=== PATIENT | male | born 1970 | race African-American/Black ===

== ENCOUNTER 2019-10-26 06:45 | Inpatient (IN) | payer OTHER ==
[2019-10-26] MEDS ORDERED: ALBUTEROL SO4 2.5/IPRATROPIUM 0.5 INH SOL 3 ML VIAL.NEB. NEB ONE ×2 (06:52→07:46)
--- NOTE | 2019-10-26 07:38 | PDOC ---
History of Present Illness - General Chief Complaint: Asthma Stated Complaint: DIFFICULTY BREATHING,ASTHMA Time Seen by Provider: 10/26/19 07:10 - History of Present Illness Initial Comments: 10/26/19 07:33 49 yo male with pmh of asthma and htn presents to ED for shortness of breath and wheezing that started this morning. Pt explains that ever since last month he has been having worsening shortness of breath which he thought was his asthma. He went to urgent care last month where he was given albuterol inhaler and 6 day course of steroids. After that pt felt better but slowly been getting worse. He explains this entire week he has been woken up from sleep and using his inhaler. Pt today explains his inhaler usually helps with symptoms but today it did not and that is why he is here today. On EMS he believes he received 2 duoneb treatments and one steroid treatment, but pt still feels short of breath. Pt also explains he has been using two pillows at home and have increased shortness of breath when walking up stairs or exerting himself which is not his baseline. Pt has never been on bipap or intubated in the past for his asthma nor has he ever been admitted to the hospital or the ICU for asthma. He also denies any fevers, chills, coughing, chest pain, abdominal pain, calf tenderness, lower extremity swelling. PMH: HTN, Asthma Meds: albuterol, omesartan PSH: Hernia repair Allergies: none Social: 1/2 pack day smoker; denies alcohol denies drugs Past History - Medical History Allergies/Adverse Reactions: Allergies Allergy/AdvReac Type Severity Reaction Status Date / Time No Known Allergies Allergy Verified 10/26/19 07:06 Home Medications: Ambulatory Orders Albuterol Sulfate Inhaler - [Ventolin Hfa Inhaler -] 2 inh PO Q6H 10/26/19 Olmesartan/Hydrochlorothiazide [Olmesartan-Hctz 40-25 mg Tab] 1 each PO DAILY 10/26/19 Anemia: Yes Cardiac Disorders: Yes COPD: No HTN: Yes - Immunization History Immunization Up to Date: Yes - Psycho-Social/Smoking History Smoking History: Current every day smoker Have you smoked in the past 12 months: Yes Number of Cigarettes Smoked Daily: 10 Information on smoking cessation initiated: Yes - Substance Abuse Hx (Audit-C & DAST Scrn) How often the patient has a drink containing alcohol: 2-3 times / week Number of drinks the patient has on a typical day: 1 or 2 How often the patient has six or more drinks on one occasion: Never Score: In Men: 4 or > Positive; In Women: 3 or > Positive: 3 Screen Result (Pos requires Nsg. Audit-10AR): Negative In the last yr the pt used illegal drug/Rx for NonMed reason: No Score: Yes response is considered Positive: 0 Screen Result (Positive result requires Nsg. DAST-10): Negative Review of Systems - Review of Systems Comments:: 10/26/19 07:44 GENERAL/CONSTITUTIONAL: No fever or chills. No weakness. HEAD, EYES, EARS, NOSE AND THROAT: No change in vision. No ear pain or disc harge. No sore throat. CARDIOVASCULAR: No chest pain. Shortness of breath RESPIRATORY: Wheezing. No hemoptysis. GASTROINTESTINAL: No nausea, vomiting, diarrhea or constipation. GENITOURINARY: No dysuria, frequency, or change in urination. MUSCULOSKELETAL: No joint or muscle swelling or pain. No neck or back pain. SKIN: No rash NEUROLOGIC: No headache, vertigo, loss of consciousness, or change in strength/sensation. HEMATOLOGIC/LYMPHATIC: No anemia, easy bleeding, or history of blood clots. ALLERGIC/IMMUNOLOGIC: No hives or skin allergy. *Physical Exam - Vital Signs Last Vital Signs Temp Pulse Resp BP Pulse Ox 100.4 F H 124 H 26 H 162/129 H 98 10/26/19 06:54 10/26/19 06:54 10/26/19 06:54 10/26/19 06:54 10/26/19 06:54 - Physical Exam 10/26/19 07:53 GENERAL: Awake, alert, and fully oriented, in distress hunching over HEAD: No signs of trauma, normocephalic, atraumatic EYES: EOMI, sclera anicteric, conjunctiva clear ENT: Auricles normal inspection, hearing grossly normal, nares patent, oropharynx clear without exudates. Moist mucosa NECK: Normal ROM, supple, no JVD, or masses LUNGS: In distress bilateral inspiritory rhonchi and expiratory wheezes, decreased breath sounds at bases. HEART:Tachycardic and regular rhythm, normal S1 and S2, no murmurs, rubs or gallops, peripheral pulses normal and equal bilaterally. ABDOMEN: Soft, nontender, normoactive bowel sounds. No guarding, no rebound. No masses EXTREMITIES : No clubbing or cyanosis. 1+ peripheral edema on bilateral lower ext. NEUROLOGICAL: Cranial nerves II through XII grossly intact. Normal speech, no focal sensorimotor deficits SKIN: Warm, Dry, normal turgor, no rashes or lesions noted Heart Score/ECG Review - ECG Impressions Comment:: 10/26/19 14:38 Sinus tachycardic at 116 bpm LVH Normal axis Normal GA and QRS interval prolonged QT interval ED Treatment Course - LABORATORY CBC & Chemistry Diagram: 10/26/19 07:50 10/26/19 07:50 - RADIOLOGY Radiology Studies Ordered: Category Date Time Status CHEST X-RAY PORTABLE* [RAD] Stat Radiology 10/26/19 07:27 Ordered Medical Decision Making - Medical Decision Making 10/26/19 08:15 49 yo male with pmh htn and asthma presents today for SOB that has been going on for one month but worsened this morning. Pt is febrile and has bilateral rhonchi on exam. Will get full septic workup. Will also get ekg and trop. Will also treat for asthma with albuterol and magnesium. Will see labs and reassess. 10/26/19 08:19 xray showing congestive changes and right sided infiltrate will treat for possible hypertensive CHF with 1 inch nitropaste and possible PNA with Ceftriaxone and Azithromycin. 10/26/19 10:00 Pt had worsening SOB so put pt on bipap. CMP came back with normal K so gave 20 lasix. Pt now stable after bipap and admit. Pt was case was discussed with resident about pts HPI, ED course, and current plan of management. Admitted to Dr. Myers Discharge - Discharge Information Problems reviewed: Yes Clinical Impression/Diagnosis: Acute respiratory failure with hypoxia Pneumonia Qualifiers: Pneumonia type: due to unspecified organism Laterality: right Lung location: lower lobe of lung Qualified Code(s): J18.9 - Pneumonia, unspecified organism Acute CHF (congestive heart failure) Qualifiers: Heart failure type: unspecified Qualified Code(s): I50.9 - Heart failure, unspecified Condition: Fair - Follow up/Referral - Patient Discharge Instructions - Post Discharge Activity
[2019-10-26] MEDS ORDERED: MAGNESIUM SULFATE IN WATER 2 GM/50 ML IVPB IVPB ONE (07:46)
[2019-10-26] MEDS ORDERED: ALBUTEROL SO4 HFA INHALER IH ONE ×3 (07:49→07:55)
[2019-10-26] MEDS ORDERED: CEFTRIAXONE 1,000 MG in DEXTROSE 5%-WATER - 50 ML IVPB ONE (08:01)
[2019-10-26] MEDS ORDERED: AZITHROMYCIN IVPB 500 MG in DEXTROSE 5%-WATER - 250 ML IVPB ONE (08:02)
[2019-10-26] MEDS ORDERED: NITROGLYCERIN 2% OINTMENT - 1GM PACKET TD ONE ×2 (08:03→08:13)
[2019-10-26] MEDS ORDERED: CEFTRIAXONE 1 GM/50 ML BAG ONE (08:13)
[2019-10-26] MEDS ORDERED: AZITHROMYCIN IVPB 500 MG/250 ML BAG IVPB ONE (08:13)
[2019-10-26 08:20] LABS: BASO % 0.5 % (0-2.0); EOS % 1.2 % (0-4.5); HEMATOCRIT 50.3 % (35.4-49); HEMOGLOBIN 16.7 GM/dL (11.7-16.9); MCH 31.4 pg (25.7-33.7); MCHC 33.2 g/dl (32.0-35.9); MEAN CELL VOLUME 94.6 fl (80-96); MEAN PLT VOLUME 9.4 fl (7.5-11.1); MONO % 4.6 % (3.8-10.2); NEUT % 72.7 % (42.8-82.8); PLATELET COUNT 186 K/MM3 (134-434); RBC 5.31 M/mm3 (4.00-5.60); RDW 15.2 % (11.9-15.9); WHITE BLOOD COUNT 5.8 K/mm3 (4.0-10.0)
--- NOTE | 2019-10-26 08:32 | PDOC ---
Attending Attestation - Resident Resident Name: Nilesh Serna - ED Attending Attestation I have performed the following: I have examined & evaluated the patient, The case was reviewed & discussed with the resident, I agree w/resident's findings & plan - HPI HPI: 10/26/19 08:27 49-year-old male with history of hypertension but noncompliant with medications, history of asthma and smoking presents with 1 month of progressive shortness of breath. Patient reports predominantly nighttime dyspnea that awakens him from sleep, no associated chest pain. He was seen at an urgent care about 1 month ago and prescribed albuterol for presumed asthma exacerbation, has been using it primarily at night with these events but without improvement. Last night, had a more significant episode so he presents for evaluation. Patient also reports 1 month of progressive dyspnea on exertion, notes previously being able to walk 2 flights of stairs in his home, but now has to stop at the top because of shortness of breath. Denies any chest pain, denies any wheezing, some cough with clear sputum, no leg swelling. No recent travel, no drug use, active smoker. Patient did report having a cardiac catheterization a few years ago, reportedly normal. - Physicial Exam PE: 10/26/19 08:29 Noted to be febrile here at 100.4, hypertensive, tachycardic, tachypneic Satting well on room air oxygen, speaking full sentences but tachypneic No JVD Heart is regular tachycardia Bibasilar crackles with decreased breath sounds at both bases, right worse than left. No wheezing noted on my examination. Abdomen benign No edema or calf tenderness - Critical Care Time Total Critical Care Time: 30 Critical Care Statement: The care of this patient involved high complexity decision making to prevent further life threatening deterioration of the patient's condition and/or to evaluate & treat vital organ system(s) failure or risk of failure. - Medical Decision Making 10/26/19 08:30 49-year-old male presents with 1 month of progressive shortness of breath, initially orthopnea/PND but now with exertional dyspnea and progressive sh ortness of breath. While asthma is on the differential, presentation could be more consistent with new onset CHF, likely diastolic from noncompliance with hypertension management. Patient noted to be febrile here, possible superimposed infectious process acutely exacerbating symptoms. Sepsis protocol initiated Supplemental oxygen, EKG, chest x-ray Nebulizers, will likely need diuretics Antibiotics as indicated based on work-up Will require admission and telemetry monitoring 10/26/19 09:54 trop negative, bnp elevated cxr with congestion and possible RLL infiltrate. no leukocytosis. covered for CAP. received diuresis. admitted to tele Heart Score/ECG Review #1 ECG reviewed & interpreted by me at: 06:57 General ECG Interpretation: Sinus Rhythm (tachy at 116), Normal Intervals (qtc 497), No acute ischemic changes Compared to previous ECG there are: Previous ECG unavail Discharge - Discharge Information Problems reviewed: Yes Clinical Impression/Diagnosis: Acute respiratory failure with hypoxia Pneumonia Qualifiers: Pneumonia type: due to unspecified organism Laterality: right Lung location: lower lobe of lung Qualified Code(s): J18.9 - Pneumonia, unspecified organism Acute CHF (congestive heart failure) Qualifiers: Heart failure type: unspecified Qualified Code(s): I50.9 - Heart failure, unspecified Condition: Fair - Follow up/Referral - Patient Discharge Instructions - Post Discharge Activity
[2019-10-26] MEDS ORDERED: ACETAMINOPHEN 1000 MG/100 ML VIAL (NON FORMULARY) IVPB ONE (08:34)
[2019-10-26 08:39] LABS: INR 0.96 (0.83-1.09); PROTHROMBIN TIME (PATIENT) 11.3 SEC (9.7-13.0)
[2019-10-26 08:41] LABS: ACTIVATED PTT 30.1 SECONDS (25.2-36.5)
[2019-10-26 08:42] LABS: VENOUS BASE EXCESS -4.1 mmol/L (-2-2); VENOUS O2 SATURATION 61.2 % (70-80); VENOUS PCO2 45.8 mmHg (38-52); VENOUS PH 7.307 (7.310-7.410)
[2019-10-26] MEDS ORDERED: ACETAMINOPHEN INJECTION 100 ML IVPB ONE (08:50)
[2019-10-26 09:32] LABS: ALBUMIN 3.4 g/dl (3.4-5.0); BILIRUBIN,TOTAL 0.8 mg/dL (0.2-1); BLOOD UREA NITROGEN 15.8 mg/dL (7-18); CALCIUM 8.9 mg/dL (8.5-10.1); CREATININE 1.2 mg/dL (0.55-1.3); POTASSIUM 3.9 mmol/L (3.5-5.1)
[2019-10-26] MEDS ORDERED: FUROSEMIDE 40 MG/4 ML INJECTABLE VIAL IVPUSH ONE (09:35)
--- NOTE | 2019-10-26 10:19 | PN ---
Teaching Attending Note Name of Resident: Jem Parish ATTENDING PHYSICIAN STATEMENT I saw and evaluated the patient. I reviewed the resident's note and discussed the case with the resident. I agree with the resident's findings and plan as documented. SUBJECTIVE: 49 year old AA male with known history of asthma, hypertension, history of hernia repair (remote), current smoker who presents to the ED complaining of shortness of breath. Patient has been having these episodes over months. He had already gone to the Urgent Care the month prior for similar symptoms and treated with inhalers and steroids. He reports episodes have been more frequent over the last week, having to wake up from sleep to use inhalers most of the time. Family history: both parents are currently alive, with COPD. 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 Shortness of breath secondary to CHF exacerbation - serial troponins - cardiac monitoring - aspirin - lipid profile - echocardiogram - Ddx: includes COPD/asthma exacerbation, CAP superimposed - covid 19 screen pending - blood cultures - diuretics - weigh daily - check electrolytes - counseled regarding smoking cessation - antibiotics initiated and continue -BIPAP support ongoing; to wean as able 2. DVT prophylaxis - Lovenox
[2019-10-26] MEDS ORDERED: FUROSEMIDE 40 MG/4 ML INJECTABLE VIAL ONE (10:40)
--- NOTE | 2019-10-26 10:43 | EKG ---
Test Reason : Blood Pressure : / mmHG Vent. Rate : 116 BPM Atrial Rate : 116 BPM P-R Int : 142 ms QRS Dur : 092 ms QT Int : 358 ms P-R-T Axes : 060 001 079 degrees QTc Int : 497 ms SINUS TACHYCARDIA MODERATE VOLTAGE CRITERIA FOR LVH, MAY BE NORMAL VARIANT NONSPECIFIC T WAVE ABNORMALITY ABNORMAL ECG WHEN COMPARED WITH ECG OF 04-JAN-2009 20:29, T WAVE INVERSION NO LONGER EVIDENT IN INFERIOR LEADS NONSPECIFIC T WAVE ABNORMALITY NO LONGER EVIDENT IN ANTERIOR LEADS NONSPECIFIC T WAVE ABNORMALITY, WORSE IN LATERAL LEADS Confirmed by León Escalona ([id number]) on 10/26/2019 10:42:57 AM Referred By: Confirmed By:León Escalona
[2019-10-26] MEDS ORDERED: ALBUTEROL SO4 2.5/IPRATROPIUM 0.5 INH SOL 3 ML VIAL.NEB. NEB PRN (11:43)
--- NOTE | 2019-10-26 11:54 | HP ---
CHIEF COMPLAINT: SOB since 2AM PCP: Dr. Negro HISTORY OF PRESENT ILLNESS: This is a 49 year old male with PMH of asthma and HTN. He presented to the ER with SOB that began at 2AM while he was asleep. He used his albuterol IH with no resolution of symptoms, after which he called EMS and was then brought to the ER. He states that he has had asthma since he was child, has never been hospitalized or intubated in the past. Albuterol IH has always helped with his asthma, up until 1 month ago when he began experiencing increased frequency of asthma episodes. At that time (1 month ago), he went to an urgent care clinic, where he was started on a 6 day PO steroid course, which improved his symptoms for about 1 week, after which his symptoms reappeared. Frequency of the asthma attacks over the past month is almost every night, and he endorses nocturnal awakening as well as activity limitation due to asthma. He states that he is now only able to walk 2 flights of stairs before becoming SOB, ambulates without assistance, endorses orthopnea and PND, and uses 2 pillows at night. He denies fevers, chills, cough, chest pain, nausea, vomiting, diarrhea, dysuria, or LE swelling. His last hospitalization was 3 years ago for PNA at [facility]. Had a L sided hernia removed as a child. Family Hx is positive for COPD in both parents, AZ in mother at the age of 67 (currently alive), and a brother with stroke/[place] at the age of 48 (currently alive). 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 No recent sick contacts. He smokes 1/2 ppd for the past 30 years, drinks liquor daily (pt. would not specify and became agitated when questioned about alcohol use), and denies drug use. In the ER, he was foud to be hypoxic and was started on BiPAP (IPAP 10, EPAP 4, Rate 4, FiO2 50%). CXR showed congestive changes as well as an infiltrate, with BNP of 2.2k, and he was given Lasix 20mg for concern for CHF exacerbation and Ceftriaxone/Azithro for PNA. ER course was notable for: (1) CXR: new congestive changes, possible infiltrate (2)BNP 2.2k, 20mg Lasix (3) Ceftriaxone/Azithromycin Recent Travel: denies PAST MEDICAL HISTORY: See HPI PAST SURGICAL HISTORY: See HPI Social History: See HPI Allergies No Known Allergies Allergy (Verified 10/26/19 07:06) HOME MEDICATIONS: Home Medications Medication Instructions Recorded Albuterol Sulfate Inhaler - 2 inh PO Q6H 10/26/19 [Ventolin Hfa Inhaler -] Olmesartan/Hydrochlorothiazide 1 each PO DAILY 10/26/19 [Olmesartan-Hctz 40-25 mg Tab] REVIEW OF SYSTEMS CONSTITUTIONAL: Absent: fever, chills, diaphoresis, generalized weakness, malaise, loss of appetite, weight change HEENT: Absent: rhinorrhea, nasal congestion, throat pain, throat swelling, difficulty swallowing, mouth swelling, ear pain, eye pain, visual changes CARDIOVASCULAR: Absent: chest pain, syncope, palpitations, irregular heart rate, lightheadedness, peripheral edema RESPIRATORY: shortness of breath, dyspnea with exertion, orthopnea Absent: cough, shortness of breath, dyspnea with exertion, orthopnea, wheezing, stridor, hemoptysis GASTROINTESTINAL: Absent: abdominal pain, abdominal distension, nausea, vomiting, diarrhea, constipation, melena, hematochezia GENITOURINARY: Absent: dysuria, frequency, urgency, hesitancy, hematuria, flank pain, genital pain MUSCULOSKELETAL: Absent: myalgia, arthralgia, joint swelling, back pain, neck pain SKIN: Absent: rash, itching, pallor HEMATOLOGIC/IMMUNOLOGIC: Absent: easy bleeding, easy bruising, lymphadenopathy, frequent infections ENDOCRINE: Absent: unexplained weight gain, unexplained weight loss, heat intolerance, cold intolerance NEUROLOGIC: Absent: headache, focal weakness or paresthesias, dizziness, unsteady gait, seizure, mental status changes, bladder or bowel incontinence PSYCHIATRIC: Absent: anxiety, depression, suicidal or homicidal ideation, hallucinations. PHYSICAL EXAMINATION Vital Signs - 24 hr 10/26/19 10/26/19 10/26/19 06:54 09:30 10:43 Temperature 100.4 F H Pulse Rate 124 H Pulse Rate [ 113 H Apical] Respiratory 26 H 20 Rate Blood Pressure 162/129 H Blood Pressure 162/112 H [Right Arm] O2 Sat by Pulse 98 99 97 Oximetry (%) GENERAL: Awake, alert, and fully oriented, in no acute distress. HEAD: Normal with no signs of trauma. EYES: Pupils equal, round and reactive to light, extraocular movements intact, sclera anicteric, conjunctiva clear. No lid lag. EARS, NOSE, THROAT: Ears normal, nares patent, oropharynx clear without exudates. Moist mucous membranes. NECK: Normal range of motion, supple without lymphadenopathy, JVD, or masses. LUNGS: Decreased BS B/L, fine crackles B/L at bases HEART: Regular rate and rhythm, normal S1 and S2 without murmur, rub or gallop. ABDOMEN: Soft, nontender, not distended, normoactive bowel sounds, no guarding, no rebound, no masses. No hepatomegaly or splenomegaly. MUSCULOSKELETAL: Normal range of motion at all joints. No bony deformities or tenderness. No CVA tenderness. UPPER EXTREMITIES: 2+ pulses, warm, well-perfused. No cyanosis. No clubbing. No peripheral edema. LOWER EXTREMITIES: 2+ pulses, warm, well-perfused. No calf tenderness. No peripheral edema. NEUROLOGICAL: Cranial nerves II-XII intact. Normal speech. Normal gait. PSYCHIATRIC: Cooperative. Good eye contact. Appropriate mood and affect. SKIN: Warm, dry, normal turgor, no rashes or lesions noted, normal capillary refill. Laboratory Results - last 24 hr 10/26/19 10/26/19 10/26/19 07:50 07:50 07:50 WBC 5.8 RBC 5.31 Hgb 16.7 Hct 50.3 H MCV 94.6 MCH 31.4 MCHC 33.2 RDW 15.2 Plt Count 186 MPV 9.4 Absolute Neuts (auto) 4.2 Neutrophils % 72.7 Lymphocytes % 21.0 Monocytes % 4.6 Eosinophils % 1.2 Basophils % 0.5 Nucleated RBC % 0 PT with INR INR PTT (Actin FS) VBG pH POC VBG pCO2 POC VBG pO2 VBG HCO3 VBG O2 Sat ([facility]) VBG Base Excess Sodium 141 Potassium 3.9 Chloride 110 H Carbon Dioxide 22 Anion Gap 9 BUN 15.8 Creatinine 1.2 Est GFR (CKD-EPI)AfAm 82.96 Est GFR (CKD-EPI)NonAf 71.58 Random Glucose 110 H Lactic Acid 2.0 Calcium 8.9 Magnesium 2.0 Total Bilirubin 0.8 AST 47 H ALT 45 Alkaline Phosphatase 57 Creatine Kinase 268 Creatine Kinase Index 0.6 CK-MB (CK-2) 1.8 Troponin I 0.03 B-Natriuretic Peptide Total Protein 7.0 Albumin 3.4 10/26/19 10/26/19 10/26/19 07:50 08:00 08:00 WBC RBC Hgb Hct MCV MCH MCHC RDW Plt Count MPV Absolute Neuts (auto) Neutrophils % Lymphocytes % Monocytes % Eosinophils % Basophils % Nucleated RBC % PT with INR 11.30 INR 0.96 PTT (Actin FS) 30.1 VBG pH 7.307 L POC VBG pCO2 45.8 POC VBG pO2 34.9 VBG HCO3 22.4 L VBG O2 Sat ([facility]) 61.2 L VBG Base Excess -4.1 L Sodium Potassium Chloride Carbon Dioxide Anion Gap BUN Creatinine Est GFR (CKD-EPI)AfAm Est GFR (CKD-EPI)NonAf Random Glucose Lactic Acid Calcium Magnesium Total Bilirubin AST ALT Alkaline Phosphatase Creatine Kinase Creatine Kinase Index CK-MB (CK-2) Troponin I B-Natriuretic Peptide 2257.6 H Total Protein Albumin ASSESSMENT/PLAN: 49 year old male with PMH of asthma and HTN, presented to the ER with acutely worsening SOB that began at 2AM while he was asleep, with a history of 1 month of worsening asthma symptoms uncontrolled by Albuterol IH. Found to have R infiltrate on CXR as well as BNP of 2.2k, admitted for CHF exacerbation #SOB - No definitive etiology, may be a mixed picture of asthma excaberation, PNA, and CHF exacerbation - Asthma excaberation: - Asthma may have progressed, fits criteria for severe persistent (nocturnal awakening as well as activity limitation due to asthma) - Started on Prednisone 40mg PO as well as Duonebs - Would recommend outpatient Pulm F/U for PFTs as well as adding Symbicort IH upon discharge for management of severe persistent asthma - PNA: - Temp 100.4 in ER, Tachy 103, R lobe possible infiltrate on CXR - Blood/Urine/Sputum cx as well as Urine for Legionella antigen ordered - COVID swab sent - Started on Ceftriaxone, Azithromycin for CAP, no indication for Pseudomonas or MRSA coverage - CHF exacerbation: - CXR shows signs of possible congestion and BNP is 2.2k however there is no convincing clinical evidence - TSH to r/o hyperthyroidism, which may cause elevated BNP - Elevated BNP may also be caused by valvular disease, LVH, will hold off on Echo for now pending cardiac consult - Troponin 0.02, repeat ordered - Stable for Med Surg, Cardiac consult, daily weights, strict I/Os - Started on Lasix 20mg IV daily #Hx of HTN - Attempted to verify meds with pt's pharmacy, no response - Pt's Olmesartan/HCTZ continued for now, will need to be verified #FEN - Na controlled diet #Prophylaxis - Lovenox #Dispo - Will monitor in Med Surg for now # Visit type - Emergency Visit Emergency Visit: No - New Patient This patient is new to me today: No - Critical Care Critical Care patient: No ATTENDING PHYSICIAN STATEMENT I saw and evaluated the patient. I reviewed the resident's note and discussed the case with the resident. I agree with the resident's findings and plan as documented. SUBJECTIVE: OBJECTIVE: ASSESSMENT AND PLAN:
--- NOTE | 2019-10-26 12:29 | CONSULT ---
Consult Consult Specialty:: Nephrology Reason for Consultation:: fluid overload - History of Present Illness Chief Complaint: shortness of breath History of Present Illness: Pt is a 49 year old male with pmhx of htn and asthma who presents with shortness of breath. He says that he has had shortness of breath for about a month. He is unable to lay flat without shortness of breath. He thought it was from his asthma. He went to urgent care and did get a course of prednisone however it did not help much. He does have edema of his legs. He has shortness of breath with ambulation. I was called to evaluate his volume status. - History Source History Provided By: Patient, Medical Record - Past Medical History Cardio/Vascular: Yes: HTN - Smoking History Smoking history: Current every day smoker Have you smoked in the past 12 months: Yes Aproximately how many cigarettes per day: 10 Home Medications - Allergies Allergies/Adverse Reactions: Allergies Allergy/AdvReac Type Severity Reaction Status Date / Time No Known Allergies Allergy Verified 10/26/19 07:06 - Home Medications Home Medications: Ambulatory Orders Albuterol Sulfate Inhaler - [Ventolin Hfa Inhaler -] 2 inh PO Q6H 10/26/19 Olmesartan/Hydrochlorothiazide [Olmesartan-Hctz 40-25 mg Tab] 1 each PO DAILY 10/26/19 Family Medical History Family History: Denies Review of Systems - Review of Systems Constitutional: reports: Weakness Eyes: reports: No Symptoms HENT: reports: No Symptoms Neck: reports: No Symptoms Cardiovascular: reports: Edema, Shortness of Breath Respiratory: reports: SOB, SOB on Exertion Gastrointestinal: reports: No Symptoms Genitourinary: reports: No Symptoms Musculoskeletal: reports: No Symptoms Integumentary: reports: No Symptoms Neurological: reports: No Symptoms Endocrine: reports: No Symptoms Hematology/Lymphatic: reports: No Symptoms Psychiatric: reports: No Symptoms Physical Exam Vital Signs: Vital Signs Temperature 100.4 F H 10/26/19 06:54 Pulse Rate 113 H 10/26/19 10:43 Respiratory Rate 10/26/19 10:43 Blood Pressure 162/112 H 10/26/19 10:43 O2 Sat by Pulse Oximetry (%) 97 10/26/19 10:43 Constitutional: Yes: Calm Eyes: Yes: Conjunctiva Clear HENT: Yes: Atraumatic Neck: Yes: Supple Cardiovascular: Yes: S1, S2 Respiratory: Yes: On Nasal O2, Rhonchi Gastrointestinal: Yes: Soft Renal/: Yes: WNL Edema: Yes Edema: LLE: 1+, RLE: 1+ Neurological: Yes: Oriented Psychiatric: Yes: Oriented Labs: CBC, BMP 10/26/19 07:50 10/26/19 07:50 Imaging - Results Chest X-ray: Report Reviewed Problem List - Problems (1) Acute CHF (congestive heart failure) Code(s): I50.9 - HEART FAILURE, UNSPECIFIED Qualifiers: Heart failure type: unspecified Qualified Code(s): I50.9 - Heart failure, u nspecified (2) Acute respiratory failure with hypoxia Code(s): J96.01 - ACUTE RESPIRATORY FAILURE WITH HYPOXIA Assessment/Plan Current Medications Generic Name Dose Route Start Last Admin Trade Name Freq PRN Reason Stop Dose Admin Albuterol/Ipratropium 1 amp 10/26/19 11:43 Duoneb - NEB Q4H PRN SHORTNESS OF BREATH Enoxaparin Sodium 40 mg 10/27/19 10:00 Lovenox - SQ DAILY SUSAN Furosemide 20 mg 10/27/19 10:00 Lasix Injection - IVPUSH DAILY [facility] Hydrochlorothiazide 25 mg 10/27/19 10:00 Hctz - PO DAILY [facility] Ceftriaxone Sodium 1 gm/ 50 mls @ 200 mls/hr 10/27/19 10:00 Dextrose IVPB DAILY [facility] Protocol Azithromycin 500 mg in 250 mls @ 250 mls/hr 10/27/19 10:00 Zithromax 500mg Ivpb (Pre-Docked) IVPB DAILY [facility] Prednisone 40 mg 10/27/19 10:00 Deltasone - PO DAILY SUSAN Valsartan 320 mg 10/27/19 10:00 Diovan - PO DAILY SUSAN Laboratory Tests 10/26/19 10/26/19 10/26/19 07:50 07:50 07:50 WBC 5.8 Hgb 16.7 Sodium 141 Potassium 3.9 Chloride 110 H BUN 15.8 Creatinine 1.2 Est GFR (CKD-EPI)AfAm 82.96 Random Glucose 110 H B-Natriuretic Peptide 2257.6 H COVID-19 ([facility]) 10/26/19 09:07 WBC Hgb Sodium Potassium Chloride BUN Creatinine Est GFR (CKD-EPI)AfAm Random Glucose B-Natriuretic Peptide COVID-19 ([facility]) Pending Impression 1. chf 2. pna 3. htn - non compliant with meds 4. hypoxia 5. fever Plan - start lasix - monitor lytes - check echo - bnp elevated - follow covid - discussed with ER - monitor pulse ox - monitor output - check ua - check prt to special education supervisor ratio
[2019-10-26 13:15] LABS: EPI CELLS 1 /uL (0-25.1); HYALINE CASTS 0 /uL (0-3.1); URINE APPEARANCE CLEAR; URINE BACTERIA 1 /uL (0-1359); URINE BILIRUBIN NEGATIVE (NEGATIVE); URINE COLOR YELLOW; URINE GLUCOSE (UA) NEGATIVE (NEGATIVE); URINE KETONE NEGATIVE (NEGATIVE); URINE LEUK ESTERASE NEGATIVE (NEGATIVE); URINE NITRITE NEGATIVE (NEGATIVE); URINE PROTEIN 1+ (NEGATIVE); URINE RBC 2 /uL (0-23.9); URINE UROBILINOGEN 0.2 mg/dL (0.2-1.0); URINE WBC 2 /uL (0-25.8)
[2019-10-26] MEDS ORDERED: HYDROCHLOROTHIAZIDE 25 MG TABLET (FP) PO ONE (18:19)
[2019-10-26] MEDS ORDERED: VALSARTAN 160 MG TABLET (UD) PO ONE (18:19)
--- NOTE | 2019-10-26 18:19 | CON.CARD ---
Consult Consult Specialty:: cardiology Reason for Consultation:: DUFFY - History of Present Illness History of Present Illness: Mr. Chisholm is a 49-year-old black male with history of hypertension, noncompliant with medications, history of bronchial asthma since childhood,and smoking 1 ppd for years, acute/chronic alcoholism, presents with 1 month of progressive shortness of breath. Patient reports predominantly nighttime dyspnea that awakens him from sleep, no associated chest pain. He was seen at an urgent care about 1 month ago and prescribed albuterol for presumed asthma exacerbation, has been using it primarily at night with these events but without improvement. Last night, had a more significant episode so he presents for evaluation. Patient also reports 1 month of progressive dyspnea on exertion, notes previously being able to walk 2 flights of stairs in his home, but now has to stop at the top because of shortness of breath. Denies any chest pain, denies any wheezing, some cough with clear sputum, no leg swelling. No recent travel, no drug use, active smoker. Patient did report having a cardiac catheterization a few years ago, reportedly normal. - History Source History Provided By: Patient, Medical Record Limitations to Obtaining History: No Limitations - Past Medical History Cardio/Vascular: Yes: HTN Pulmonary: Yes: Asthma Heme/Onc: No: Anemia Psych: Yes: Addictions, Anxiety - Alcohol/Substance Use Hx Alcohol Use: Yes - Smoking History Smoking history: Current every day smoker Have you smoked in the past 12 months: Yes Aproximately how many cigarettes per day: 10 Home Medications - Allergies Allergies/Adverse Reactions: Allergies Allergy/AdvReac Type Severity Reaction Status Date / Time No Known Allergies Allergy Verified 10/26/19 07:06 - Home Medications Home Medications: Ambulatory Orders Albuterol Sulfate Inhaler - [Ventolin Hfa Inhaler -] 2 inh PO Q6H 10/26/19 Olmesartan/Hydrochlorothiazide [Olmesartan-Hctz 40-25 mg Tab] 1 each PO DAILY 10/26/19 Family Medical History Family Hx Congestive Heart Failure: Brother (Life vest; ?ICD in his 50s) Family Hx Coronary Artery Disease: Mother (CABG) Family Hx Respiratory Disorders: Mother (COPD (smoker)) Review of Systems - Review of Systems Constitutional: reports: Weakness Eyes: reports: No Symptoms HENT: reports: No Symptoms Neck: reports: No Symptoms Cardiovascular: reports: Shortness of Breath Respiratory: reports: Exercise Intolerance Gastrointestinal: reports: No Symptoms Genitourinary: reports: No Symptoms Musculoskeletal: reports: Muscle Weakness Integumentary: reports: No Symptoms Neurological: reports: No Symptoms Endocrine: reports: No Symptoms Hematology/Lymphatic: reports: No Symptoms Psychiatric: reports: Anxiety, Other - Risk Factors Known Risk Factors: Yes: Age, Gender, Hypertension, Physical Inactivity, Race, Other (CHF) Vital Signs: Vital Signs Temperature 98 F 10/26/19 18:04 Pulse Rate 91 H 10/26/19 18:04 Respiratory Rate 20 10/26/19 18:04 Blood Pressure 159/93 10/26/19 18:04 O2 Sat by Pulse Oximetry (%) 99 10/26/19 18:04 Constitutional: Yes: Anxious Eyes: Yes: WNL HENT: Yes: WNL Neck: Yes: WNL Respiratory: Yes: Diminished, SOB on Exertion Gastrointestinal: Yes: Soft Renal/: No: Anuria Cardiovascular: Yes: Regular Rate and Rhythm Heart Sounds: Yes: S1, S2, S4 Murmur: Yes: Systolic Murmur, Grade 2 Musculoskeletal: Yes: Muscle Weakness Extremities: Yes: Cool Edema: Yes Edema: LLE: Trace, RLE: Trace Peripheral Pulses WNL: Yes Integumentary: Yes: WNL Neurological: Yes: Alert, Oriented Psychiatric: Yes: Alert, Oriented, Other - Other Data Labs, Other Data: CBC, BMP 10/26/19 07:50 10/26/19 07:50 INR, PTT INR 0.96 (0.83-1.09) 10/26/19 08:00 Troponin, BNP 10/26/19 10/26/19 10/26/19 07:50 07:50 14:27 Troponin I 0.03 0.04 B-Natriuretic Peptide 2257.6 H Troponin, BNP 10/26/19 10/26/19 10/26/19 07:50 07:50 14:27 Troponin I 0.03 0.04 B-Natriuretic Peptide 2257.6 H Abnormal Lab Results 10/30/19 10/30/19 06:18 06:18 Neutrophils % 39.6 L Lymphocytes % 47.7 H Anion Gap 6 L BUN 20.8 H Total Protein 6.1 L Albumin 2.9 L Echo: Pending Assessment/Plan Acute/chronic respiratory distress Bronchial asthma Uncontrolled HTN Acute/chronic CHF Multiple CAD risks Noncompliance to medications Mild TNI elevation Plan: Bronchodilators, O2, steroids, antibiotics per padding gluer, ID. Nicotine patch ECHO for LVEF, valve status. EKG: Sinus tachycardia; LVH On valsartan, HCTZ, and furosemide. F/u BUN/Cr, electrolytes, daily weight, Is and Os. F/u Lipid profile, HGBA1c, TSH. Hx cardiac workup ? 3 yrs ago, including stress test, prior to a planned surgery (for rt rotator cuff, which was never done)
[2019-10-26 18:47] VITALS: BMI 26.7
[2019-10-26] MEDS: NICOTINE 21 MG/24 HOURS TOPICAL PATCH TD SCH (20:12)
[2019-10-27 07:10] LABS: BASO % 0.3 % (0-2.0); EOS % 0.2 % (0-4.5); HEMATOCRIT 44.5 % (35.4-49); HEMOGLOBIN 14.6 GM/dL (11.7-16.9); MCH 31.2 pg (25.7-33.7); MCHC 32.7 g/dl (32.0-35.9); MEAN CELL VOLUME 95.4 fl (80-96); MEAN PLT VOLUME 9.5 fl (7.5-11.1); MONO % 7.1 % (3.8-10.2); NEUT % 80.4 % (42.8-82.8); PLATELET COUNT 195 K/MM3 (134-434); RBC 4.67 M/mm3 (4.00-5.60); RDW 15.3 % (11.9-15.9); WHITE BLOOD COUNT 10.9 K/mm3 (4.0-10.0)
[2019-10-27 07:46] LABS: BILIRUBIN,TOTAL 0.6 mg/dL (0.2-1); BLOOD UREA NITROGEN 23.4 mg/dL (7-18); CALCIUM 8.8 mg/dL (8.5-10.1); CREATININE 1.4 mg/dL (0.55-1.3); MAGNESIUM 2.2 mg/dL (1.8-2.4); PHOSPHOROUS 4.9 mg/dL (2.5-4.9); POTASSIUM 4.1 mmol/L (3.5-5.1)
[2019-10-27] MEDS ORDERED: DEXTROSE 5%-WATER - 50 ML IVPB ONE (09:13)
[2019-10-27] MEDS ORDERED: cefTRIAXone SODIUM 1 GM VIAL ONE (09:13)
[2019-10-27] MEDS: ENOXAPARIN NA (PORCINE) 40 MG/0.4 ML DISP.SYRIN SQ SCH (09:29)
[2019-10-27] MEDS: NICOTINE 21 MG/24 HOURS TOPICAL PATCH TD SCH (09:30)
[2019-10-27] MEDS ORDERED: predniSONE 20 MG TABLET (UD) PO SCH (10:00)
[2019-10-27] MEDS ORDERED: HYDROCHLOROTHIAZIDE 25 MG TABLET (FP) PO SCH (10:00)
[2019-10-27] MEDS ORDERED: CEFTRIAXONE 1 GM in DEXTROSE 5%-WATER - 50 ML IVPB SCH (10:00)
[2019-10-27] MEDS ORDERED: VALSARTAN 160 MG TABLET (UD) PO SCH (10:00)
[2019-10-27] MEDS ORDERED: AZITHROMYCIN IVPB 500 MG/250 ML BAG IVPB SCH (10:00)
[2019-10-27] MEDS ORDERED: FUROSEMIDE 40 MG/4 ML INJECTABLE VIAL IVPUSH SCH (10:00)
--- NOTE | 2019-10-27 11:25 | PN ---
Teaching Attending Note Name of Resident: Suma Scanlon ATTENDING PHYSICIAN STATEMENT I saw and evaluated the patient. I reviewed the resident's note and discussed the case with the resident. I agree with the resident's findings and plan as documented. SUBJECTIVE: pt seen and examined at bedside, on NC, no complains OBJECTIVE: Last Vital Signs Temp Pulse Resp BP Pulse Ox 98 F 93 H 20 144/52 L 98 10/27/19 08:41 10/27/19 08:41 10/27/19 08:41 10/27/19 08:41 10/27/19 08:41 GENERAL: Awake, alert, and fully oriented, in no acute distress. HEENT: NC/AT, not P/C/J, neck supple no JVD LUNGS: Breath sounds equal, clear to auscultation bilaterally. No wheezes, and no crackles. No accessory muscle use. HEART: Regular rate and rhythm, normal S1 and S2 soft systolic LSB 2/6 murmur, rub or gallop. ABDOMEN: Soft, nontender, not distended, normoactive bowel sounds, no guarding, no rebound, no masses. No hepatomegaly or splenomegaly. LOWER EXTREMITIES: 2+ pulses, warm, well-perfused. No calf tenderness. No peripheral edema. rt varicose veins noted NEUROLOGICAL: Cranial nerves II-XII intact. Normal speech. Normal gait. SKIN: Warm, dry, normal turgor, no rashes or lesions noted, normal capillary refill. CBCD WBC 10.9 K/mm3 (4.0-10.0) H 10/27/19 06:30 RBC 4.67 M/mm3 (4.00-5.60) 10/27/19 06:30 Hgb 14.6 GM/dL (11.7-16.9) 10/27/19 06:30 Hct 44.5 % (35.4-49) 10/27/19 06:30 MCV 95.4 fl (80-96) 10/27/19 06:30 MCHC 32.7 g/dl (32.0-35.9) 10/27/19 06:30 RDW 15.3 % (11.9-15.9) 10/27/19 06:30 Plt Count 195 K/MM3 (134-434) 10/27/19 06:30 MPV 9.5 fl (7.5-11.1) 10/27/19 06:30 CMP Sodium 140 mmol/L (136-145) 10/27/19 06:30 Potassium 4.1 mmol/L (3.5-5.1) 10/27/19 06:30 Chloride 107 mmol/L (98-107) 10/27/19 06:30 Carbon Dioxide 24 mmol/L (21-32) 10/27/19 06:30 Anion Gap 9 MMOL/L (8-16) 10/27/19 06:30 BUN 23.4 mg/dL (7-18) H 10/27/19 06:30 Creatinine 1.4 mg/dL (0.55-1.3) H 10/27/19 06:30 Calcium 8.8 mg/dL (8.5-10.1) 10/27/19 06:30 Total Bilirubin 0.6 mg/dL (0.2-1) 10/27/19 06:30 AST 23 U/L (15-37) 10/27/19 06:30 ALT 32 U/L (13-61) 10/27/19 06:30 Alkaline Phosphatase 50 U/L (45-117) 10/27/19 06:30 Total Protein 6.0 g/dl (6.4-8.2) L 10/27/19 06:30 Albumin 3.0 g/dl (3.4-5.0) L 10/27/19 06:30 ASSESSMENT AND PLAN: 49 year old male with PMH of seasonal asthma, HTN, and varicose veins presented to ED complaining from dyspnea, paroxysmal nocturnal dysnpea # Dysnpena - Acute vs Acute on chronic CHF? HOCM? SHANA? - non compliant with medications - has strong family hx of heart disease, mother had CAD w CABG at age 60, brother had HF? and pacemaker at age 45 - not wheezing, no rales noted, doubt Asthma exacerbation - stated feeling much better compared to yesterday - EKG showing LVH, high BNP - will need ECHO - discussed smoking cessations, medication compliance - daily wt, I/O - appears euvolemic - cardiology following HTN Asthma varicose veins DVT prophylaxis
--- NOTE | 2019-10-27 11:45 | PN ---
Progress Note, Physician History of Present Illness: Mr. Chisholm is a 49-year-old black male with history of hypertension, noncompliant with medications, history of bronchial asthma since childhood,and smoking 1 ppd for years, acute/chronic alcoholism, presents with 1 month of progressive shortness of breath. Patient reports predominantly nighttime dyspnea that awakens him from sleep, no associated chest pain. He was seen at an urgent care about 1 month ago and prescribed albuterol for presumed asthma exacerbation, has been using it primarily at night with these events but without improvement. Last night, had a more significant episode so he presents for evaluation. Patient also reports 1 month of progressive dyspnea on exertion, notes previously being able to walk 2 flights of stairs in his home, but now has to stop at the top because of shortness of breath. Denies any chest pain, denies any wheezing, some cough with clear sputum, no leg swelling. No recent travel, no drug use, active smoker. Patient did report having a cardiac catheterization a few years ago, reportedly normal. - Current Medication List Current Medications: Active Medications Albuterol/Ipratropium (Duoneb -) 1 amp NEB Q4H PRN PRN Reason: SHORTNESS OF BREATH Azithromycin (Zithromax -) 250 mg PO DAILY [facility] Stop: 10/31/19 09:59 Enoxaparin Sodium (Lovenox -) 40 mg SQ DAILY [facility] Last Admin: 10/27/19 09:29 Dose: 40 mg Documented by: Furosemide (Lasix Injection -) 20 mg IVPUSH DAILY [facility] Last Admin: 10/27/19 09:47 Dose: 20 mg Documented by: Nicotine (Nicoderm Patch -) 21 mg TD DAILY [facility] Last Admin: 10/27/19 09:30 Dose: 21 mg Documented by: Prednisone (Deltasone -) 40 mg PO DAILY [facility] Last Admin: 10/27/19 09:29 Dose: 40 mg Documented by: Valsartan (Diovan -) 320 mg PO DAILY [facility] Last Admin: 10/27/19 09:29 Dose: 320 mg Documented by: - Objective Vital Signs: Vital Signs Temperature 98 F 10/27/19 08:41 Pulse Rate 93 H 10/27/19 08:41 Respiratory Rate 20 10/27/19 08:41 Blood Pressure 144/52 L 10/27/19 08:41 O2 Sat by Pulse Oximetry (%) 98 10/27/19 08:41 Eyes: Yes: WNL, Conjunctiva Clear, EOM Intact HENT: Yes: WNL, Atraumatic, Normocephalic Neck: Yes: WNL, Supple, Trachea Midline Cardiovascular: Yes: WNL, Regular Rate and Rhythm Respiratory: Yes: WNL, Regular, Diminished Gastrointestinal: Yes: WNL, Normal Bowel Sounds Genitourinary: Yes: WNL Musculoskeletal: Yes: WNL Extremities: Yes: WNL Edema: No Integumentary: Yes: WNL Neurological: Yes: WNL, Alert, Oriented ...Motor Strength: WNL Psychiatric: Yes: WNL Labs: CBC, BMP 10/27/19 06:30 10/27/19 06:30 INR, PTT INR 0.96 (0.83-1.09) 10/26/19 08:00 Assessment/Plan Acute/chronic respiratory distress Bronchial asthma Uncontrolled HTN Acute/chronic CHF Multiple CAD risks Noncompliance to medications Mild TNI elevation Plan: Bronchodilators, O2, steroids, antibiotics per binding nicker, ID. Nicotine patch ECHO for LVEF, valve status. EKG: Sinus tachycardia; LVH On valsartan, HCTZ, and furosemide. F/u BUN/Cr, electrolytes, daily weight, Is and Os. F/u Lipid profile, HGBA1c, TSH. MIBI stress tets
--- NOTE | 2019-10-27 12:45 | PN ---
Physical Exam: SUBJECTIVE: Patient seen and examined at bedside this morning. Patient reported feeling better this morning, with less dyspnea. Reported he slept well overnight with the bipap. This morning, patient was placed on nasal cannula, saturating >95%. OBJECTIVE: Vital Signs Temperature 98 F 10/27/19 08:41 Pulse Rate 93 H 10/27/19 08:41 Respiratory Rate 20 10/27/19 08:41 Blood Pressure 144/52 L 10/27/19 08:41 O2 Sat by Pulse Oximetry (%) 95 10/27/19 09:00 GENERAL: The patient is awake, alert, and fully oriented, on 4L NC HEAD: Normal with no signs of trauma. EYES:PERRLA, EOMI, sclera anicteric, conjunctiva clear. ENT: moist mucous membranes. NECK: supple. LUNGS: Decreased breath sounds on bilateral bases. No crackles or wheezing HEART: Regular rate and rhythm, S1, S2 without murmur ABDOMEN: Soft, nontender, nondistended, normoactive bowel sounds, EXTREMITIES: 2+ pulses, warm, well-perfused, no edema. NEUROLOGICAL: Cranial nerves II through XII grossly intact. Normal speech PSYCH: Normal mood, normal affect. SKIN: Warm, dry, normal turgor Laboratory Results - last 24 hr 10/26/19 10/26/19 10/26/19 07:50 07:50 09:07 WBC RBC Hgb Hct MCV MCH MCHC RDW Plt Count MPV Absolute Neuts (auto) Neutrophils % Lymphocytes % Monocytes % Eosinophils % Basophils % Nucleated RBC % Sodium 141 Potassium 3.9 Chloride 110 H Carbon Dioxide 22 Anion Gap 9 BUN 15.8 Creatinine 1.2 Est GFR (CKD-EPI)AfAm 82.96 Est GFR (CKD-EPI)NonAf 71.58 Random Glucose 110 H Hemoglobin A1c % 5.7 Calcium 8.9 Phosphorus Magnesium 2.0 Total Bilirubin 0.8 AST 47 H ALT 45 Alkaline Phosphatase 57 Creatine Kinase 268 Creatine Kinase Index 0.6 CK-MB (CK-2) 1.8 Troponin I 0.03 Total Protein 7.0 Albumin 3.4 Triglycerides 143 Cholesterol 189 Total LDL Cholesterol 92 HDL Cholesterol 54 TSH 2.32 Urine Color Urine Appearance Urine pH Ur Specific [place] Urine Protein Urine Glucose (UA) Urine Ketones Urine Blood Urine Nitrite Urine Bilirubin Urine Urobilinogen Ur Leukocyte Esterase Urine WBC (Auto) Urine RBC (Auto) Urine Casts (Auto) U Epithel Cells (Auto) Urine Bacteria (Auto) COVID-19 ([facility]) Not detected 10/26/19 10/26/19 10/27/19 12:00 14:27 06:30 WBC 10.9 H RBC 4.67 Hgb 14.6 Hct 44.5 MCV 95.4 MCH 31.2 MCHC 32.7 RDW 15.3 Plt Count 195 MPV 9.5 Absolute Neuts (auto) 8.7 H Neutrophils % 80.4 Lymphocytes % 12.0 D Monocytes % 7.1 Eosinophils % 0.2 D Basophils % 0.3 Nucleated RBC % 0 Sodium Potassium Chloride Carbon Dioxide Anion Gap BUN Creatinine Est GFR (CKD-EPI)AfAm Est GFR (CKD-EPI)NonAf Random Glucose Hemoglobin A1c % Calcium Phosphorus Magnesium Total Bilirubin AST ALT Alkaline Phosphatase Creatine Kinase Creatine Kinase Index CK-MB (CK-2) Troponin I 0.04 Total Protein Albumin Triglycerides Cholesterol Total LDL Cholesterol HDL Cholesterol TSH Urine Color Yellow Urine Appearance Clear Urine pH 5.0 Ur Specific [place] 1.010 Urine Protein 1+ H Urine Glucose (UA) Negative Urine Ketones Negative Urine Blood Negative Urine Nitrite Negative Urine Bilirubin Negative Urine Urobilinogen 0.2 Ur Leukocyte Esterase Negative Urine WBC (Auto) 2 Urine RBC (Auto) 2 Urine Casts (Auto) 0 U Epithel Cells (Auto) 1 Urine Bacteria (Auto) 1 COVID-19 ([facility]) 10/27/19 06:30 WBC RBC Hgb Hct MCV MCH MCHC RDW Plt Count MPV Absolute Neuts (auto) Neutrophils % Lymphocytes % Monocytes % Eosinophils % Basophils % Nucleated RBC % Sodium 140 Potassium 4.1 Chloride 107 Carbon Dioxide 24 Anion Gap 9 BUN 23.4 H Creatinine 1.4 H Est GFR (CKD-EPI)AfAm 68.85 Est GFR (CKD-EPI)NonAf 59.41 Random Glucose 110 H Hemoglobin A1c % Calcium 8.8 Phosphorus 4.9 Magnesium 2.2 Total Bilirubin 0.6 AST 23 ALT 32 Alkaline Phosphatase 50 Creatine Kinase 220 Creatine Kinase Index 0.8 CK-MB (CK-2) 1.9 Troponin I 0.04 Total Protein 6.0 L Albumin 3.0 L Triglycerides Cholesterol Total LDL Cholesterol HDL Cholesterol TSH Urine Color Urine Appearance Urine pH Ur Specific [place] Urine Protein Urine Glucose (UA) Urine Ketones Urine Blood Urine Nitrite Urine Bilirubin Urine Urobilinogen Ur Leukocyte Esterase Urine WBC (Auto) Urine RBC (Auto) Urine Casts (Auto) U Epithel Cells (Auto) Urine Bacteria (Auto) COVID-19 ([facility]) Active Medications Generic Name Dose Route Start Last Admin Trade Name Zia PRN Reason Stop Dose Admin Albuterol/Ipratropium 1 amp 10/26/19 11:43 Duoneb - NEB Q4H PRN SHORTNESS OF BREATH Azithromycin 250 mg 10/28/19 10:00 Zithromax - PO 10/31/19 09:59 DAILY SUSAN Enoxaparin Sodium 40 mg 10/27/19 10:00 10/27/19 09:29 Lovenox - SQ 40 mg DAILY [facility] Administration Furosemide 20 mg 10/27/19 10:00 10/27/19 09:47 Lasix Injection - IVPUSH 20 mg DAILY [facility]AN Administration Metoprolol Succinate 25 mg 10/28/19 10:00 Toprol Xl - PO DAILY SUSAN Nicotine 21 mg 10/26/19 19:00 10/27/19 09:30 Nicoderm Patch - TD 21 mg DAILY [facility]AN Administration Prednisone 40 mg 10/27/19 10:00 10/27/19 09:29 Deltasone - PO 40 mg DAILY [facility]AN Administration Valsartan 320 mg 10/27/19 10:00 10/27/19 09:29 Diovan - PO 320 mg DAILY SUSAN Administration ASSESSMENT/PLAN: Patient is a 49 year old male with PMH of asthma and HTN, presented to the ER with acutely worsening SOB that began at 2AM while he was asleep, with a history of 1 month of worsening asthma symptoms uncontrolled by Albuterol IH. Found to have congestive changes on CXR with questionable R infiltrate as well as BNP of 2.2k. #Shortness of breath -unclear etiology at this time, may be acute vs acute on chronic? CHF, asthma, possible PNA, ?SHANA, ?HOCM -BNP elevated -Echo pending -blood/urine [place],pneumonia, covid pending -Iv Lasix 20mg started yesterday with good UO -will discontinue IV Ceftriaxone, and switch to PO Azithromycin tomorrow -start Toprol XL 25mg daily, hold HCTZ -Continue Valsartan -Prednisone 40mg started yesterday -Duonebs prn -daily weights, I&O -monitor electrolytes and replete prn -MIBI stress test ordered -Cardiology consulted. REcs appreciated. -Nephrology consulted. REcs appreciated. -Pulmonology consulted. Recs appreciated. #HTN -Continue home Olmesartan -will hold HCTZ -started on Toprol XL and on Lasix #FEN -Not on any standing fluids -Electrolytes wnl, routine bmp monitoring -Sodium restricted diet #Prophylaxis - Lovenox 40mg sq daily #Dispo -full code -med surg Visit type - Emergency Visit Emergency Visit: Yes ED Registration Date: 10/26/19 Care time: The patient presented to the Emergency Department on the above date and was hospitalized for further evaluation of their emergent condition. - New Patient This patient is new to me today: Yes Date on this admission: 10/27/19 - Critical Care Critical Care patient: No ATTENDING PHYSICIAN STATEMENT I saw and evaluated the patient. I reviewed the resident's note and discussed the case with the resident. I agree with the resident's findings and plan as documented. SUBJECTIVE: OBJECTIVE: ASSESSMENT AND PLAN:
--- NOTE | 2019-10-27 13:18 | PN ---
Progress Note, Physician History of Present Illness: Pt seen and examined at bedside. He is awake and alert. He feels that his breathing is much better. - Current Medication List Current Medications: Active Medications Albuterol/Ipratropium (Duoneb -) 1 amp NEB Q4H PRN PRN Reason: SHORTNESS OF BREATH Enoxaparin Sodium (Lovenox -) 40 mg SQ DAILY [facility] Last Admin: 10/27/19 09:29 Dose: 40 mg Documented by: Furosemide (Lasix Injection -) 20 mg IVPUSH DAILY [facility] Last Admin: 10/27/19 09:47 Dose: 20 mg Documented by: Metoprolol Succinate (Toprol Xl -) 25 mg PO DAILY [facility] Nicotine (Nicoderm Patch -) 21 mg TD DAILY [facility] Last Admin: 10/27/19 09:30 Dose: 21 mg Documented by: Valsartan (Diovan -) 320 mg PO DAILY [facility] Last Admin: 10/27/19 09:29 Dose: 320 mg Documented by: - Objective Vital Signs: Vital Signs Temperature 98 F 10/27/19 08:41 Pulse Rate 93 H 10/27/19 08:41 Respiratory Rate 10/27/19 08:41 Blood Pressure 144/52 L 10/27/19 08:41 O2 Sat by Pulse Oximetry (%) 95 10/27/19 09:00 Constitutional: Yes: Calm Eyes: Yes: Conjunctiva Clear HENT: Yes: Atraumatic Neck: Yes: Supple Cardiovascular: Yes: S1, S2 Respiratory: Yes: CTA Bilaterally Gastrointestinal: Yes: Normal Bowel Sounds, Soft Genitourinary: Yes: WNL Musculoskeletal: Yes: WNL Edema: No Integumentary: Yes: WNL Neurological: Yes: Oriented Psychiatric: Yes: Oriented Labs: CBC, BMP 10/27/19 06:30 10/27/19 06:30 INR, PTT INR 0.96 (0.83-1.09) 10/26/19 08:00 Problem List - Problems (1) Acute CHF (congestive heart failure) Code(s): I50.9 - HEART FAILURE, UNSPECIFIED Qualifiers: Qualified Code(s): I50.9 - Heart failure, unspecified (2) Acute respiratory failure with hypoxia Code(s): J96.01 - ACUTE RESPIRATORY FAILURE WITH HYPOXIA Assessment/Plan Current Medications Generic Name Dose Route Start Last Admin Trade Name Freq PRN Reason Stop Dose Admin Albuterol/Ipratropium 1 amp 10/26/19 11:43 Duoneb - NEB Q4H PRN SHORTNESS OF BREATH Enoxaparin Sodium 40 mg 10/27/19 10:00 10/27/19 09:29 Lovenox - SQ 40 mg DAILY [facility] Administration Furosemide 20 mg 10/27/19 10:00 10/27/19 09:47 Lasix Injection - IVPUSH 20 mg DAILY [facility] Administration Metoprolol Succinate 25 mg 10/28/19 10:00 Toprol Xl - PO DAILY [facility] Nicotine 21 mg 10/26/19 19:00 10/27/19 09:30 Nicoderm Patch - TD 21 mg DAILY [facility] Administration Valsartan 320 mg 10/27/19 10:00 10/27/19 09:29 Diovan - PO 320 mg DAILY [facility] Administration Impression 1. chf 2. pna 3. htn - non compliant with meds 4. hypoxia 5. fever Plan - cont lasix, can johnson to po - monitor renal function, american sign language interpreter is higher - avoid hypotension - follow echo results - ua with 1 plus protein - check prt to american sign language interpreter ratio - can decrease valsartan dose
--- NOTE | 2019-10-27 13:49 | CON.PULM ---
Consult Consult Specialty:: PULM/CCM Referred by:: Hospitalist Reason for Consultation:: SOB - History of Present Illness Chief Complaint: SOB History of Present Illness: 49 M, apparent childhood asthma mostly seasonal related. No significant symptoms as an adult until recently. Never intubated. Not steroid dependent. Unknown PEF. Admitted via the ER due to SOB x 1 month. (+) Tobacco use. No fever or chills. No known exposure to COVID19. Reports edema in his legs (Right > left) due to "abnormal blood vessels". CXR: Pulmonary vascular congestion. - History Source History Provided By: Patient Limitations to Obtaining History: No Limitations - Past Medical History Cardio/Vascular: Yes: HTN Pulmonary: Yes: Asthma, Bronchitis. No: Cancer, COPD, O2 Dependent, Pneumonia, Previously Intubated, Pulmonary Embolus, Pulmonary Fibrosis - Smoking History Smoking history: Current every day smoker Have you smoked in the past 12 months: Yes Aproximately how many cigarettes per day: 10 Home Medications - Allergies Allergies/Adverse Reactions: Allergies Allergy/AdvReac Type Severity Reaction Status Date / Time No Known Allergies Allergy Verified 10/26/19 07:06 - Home Medications Home Medications: Ambulatory Orders Albuterol Sulfate Inhaler - [Ventolin Hfa Inhaler -] 2 inh PO Q6H 10/26/19 Olmesartan/Hydrochlorothiazide [Olmesartan-Hctz 40-25 mg Tab] 1 each PO DAILY 10/26/19 Review of Systems - Review of Systems Constitutional: denies: Chills, Fever, Malaise, Night Sweats, Unintentional Wgt. Loss Eyes: reports: No Symptoms HENT: reports: No Symptoms Neck: reports: No Symptoms Cardiovascular: reports: Edema, Shortness of Breath. denies: Chest Pain, Palpitations Respiratory: reports: Orthopnea, Snoring, SOB, SOB on Exertion, Wheezing. denies: Hemoptysis Gastrointestinal: reports: No Symptoms Genitourinary: reports: No Symptoms Breasts: reports: No Symptoms Reported Musculoskeletal: reports: No Symptoms Integumentary: reports: No Symptoms Neurological: reports: No Symptoms Endocrine: reports: No Symptoms, Unexplained Weight Gain Psychiatric: reports: No Symptoms Physical Exam Vital Sings: Vital Signs Temperature 98 F 10/27/19 08:41 Pulse Rate 93 H 10/27/19 08:41 Respiratory Rate 10/27/19 08:41 Blood Pressure 144/52 L 10/27/19 08:41 O2 Sat by Pulse Oximetry (%) 95 10/27/19 09:00 Constitutional: Yes: No Distress, Calm Eyes: Yes: Conjunctiva Clear, EOM Intact HENT: Yes: Atraumatic, Normocephalic Neck: Yes: Supple, Trachea Midline Cardiovascular: Yes: Regular Rate and Rhythm Respiratory: Yes: Diminished. No: Accessory Muscle Use, Rales, Rhonchi, SOB, SOB on Exertion, Stridor, Tachypnea, Wheezes ...Inspection: Yes: WNL ...Clubbing: No Gastrointestinal: Yes: Normal Bowel Sounds, Soft Renal/: Yes: WNL Musculoskeletal: Yes: WNL Extremities: Yes: WNL Edema: Yes Peripheral Pulses WNL: Yes Integumentary: Yes: WNL Neurological: Yes: WNL, Alert, Oriented ...Motor Strength: WNL Psychiatric: Yes: WNL, Alert, Oriented Labs: CBC, BMP 10/27/19 06:30 10/27/19 06:30 Imaging - Results Chest X-ray: Report Reviewed, Image Reviewed Problem List - Problems (1) Pulmonary vascular congestion Code(s): R09.89 - OTH SYMPTOMS AND SIGNS INVOLVING THE CIRC AND RESP SYSTEMS (2) Asthma Code(s): J45.909 - UNSPECIFIED ASTHMA, UNCOMPLICATED (3) Acute CHF (congestive heart failure) Code(s): I50.9 - HEART FAILURE, UNSPECIFIED Qualifiers: Heart failure type: unspecified Qualified Code(s): I50.9 - Heart failure, unspecified Assessment/Plan IMP: Do not suspect AE of Intermittent Asthma Do not suspect PNA R/O OSAS PLAN: Monitor off systemic steroids Monitor off ABX No smoking was counseled Supplemental O2 as needed Outpatient PFTs once stable Sleep study BD [place] PRN Will follow Thank you. Dr Mccullough SHANA Screen - SHANA History Previously diagnosed with Sleep Apnea: No If Yes, currently using CPAP to treat your SHANA: No - SNORING Do you snore loudly (enough to be heard thru closed doors)?: Yes - TIRED Do you often feel tired, fatigued, or sleepy during daytime?: Yes - OBSERVED Has anyone observed you stop breathing during your sleep?: Yes - BLOOD PRESSURE Do you have or are being treated for high blood pressure?: Yes - BMI Answer Y if weight exceeds amount listed for your height: No .: HEIGHT & WEIGHT (lbs): 4'10" 167lbs; 4'11" 175 lbs; 5'0" 179lbs;. 5'1" 185lbs; 5'2" 191lbs; 5'3" 197lbs;. 5'4" 204lbs; 5'5" 210lbs; 56" 216lbs;. 5'7" 223lbs; 58" 230lbs; 59" 237lbs;. 510" 243l bs; 11" 250lbs; 6' 258lbs;. 6'1" 265lbs; 6'2" 272lbs; 6'3" 279lbs;. 6'4" 287lbs; 6'5" 295lbs - AGE Is your age over 50 yrs old?: No - NECK CIRCUMFERENCE Neck Circumference 40cm: No - GENDER Male: Yes - SCORE Total Score: 5 Score Interpretation: High Risk of SHANA .: Interpretation: Score 0-2: Low Risk SHANA. Score 3-4: Intermediate Risk SHANA. Score 5-8: High Risk SHANA
--- NOTE | 2019-10-28 06:51 | ECHO ---
Version: 1 Name: GODWIN VICTOR Exam: Adult Echocardiogram Study Date: 10/27/2019, 11:03 AM Age: 49 Years MMode/2D Measurements & Calculations IVSd: 0.98 cm LVIDs: 4.0 cm LVIDd: 5.3 cm LVPWd: 1.40 cm LAV (MOD-bp): 103.0 ml LVOT diam: 1.99 cm Ao root diam: 2.9 cm LA dimension: 3.8 cm Doppler Measurements & Calculations MV E max jeff: 112.0 cm/sec Med E/e': 14.3 MV A max jeff: 39.9 cm/sec Med Peak E' Jeff: 7.8 cm/sec MV E/A: 2.8 Lat E/e': 13.7 Lat Peak E' Jeff: 8.2 cm/sec MR max P.4 mmHg Ao max P.7 mmHg Ao V2 max: 96.4 cm/sec TR max jeff: 235.8 cm/sec TR max P.3 mmHg Procedure A complete two-dimensional transthoracic echocardiogram was performed (2D, M-mode, Doppler and color flow Doppler). Left Ventricle The left ventricle is normal in size. Ejection Fraction = 40%. E/A reversal consistent with but not diagnostic of poor LV compliance. There is mild to moderate global hypokinesis of the left ventricle . Right Ventricle The right ventricle is normal in size and function. Atria Normal left and right atrial size and function. Mitral Valve The mitral valve is normal in structure and function. There is mild mitral regurgitation. Tricuspid Valve The tricuspid valve is normal in structure and function. There is Trace to mild tricuspid regurgitat ion. Right ventricular systolic pressure is 27 mmhg. Aortic Valve The aortic valve is normal in structure and function. Pulmonic Valve The pulmonic valve is normal in structure and function. Great Vessels The aortic root is normal size. Pericardium/Pleura There is no pericardial effusion. There is no pleural effusion. Summary Statements The left ventricle is normal in size. There is mild to moderate global hypokinesis of the left ventricle. Ejection Fraction = 40%. There is mild mitral regurgitation. There is Trace to mild tricuspid regurgitation. MD Darnell Jett 10/27/2019, 12:58 PM Ordering Physician: Suma Scanlon Performed By: Hillary Franco
[2019-10-28 08:19] LABS: BASO % 0.2 % (0-2.0); EOS % 0.1 % (0-4.5); HEMATOCRIT 45.1 % (35.4-49); HEMOGLOBIN 14.8 GM/dL (11.7-16.9); LYMPH % 25.9 % (8-40); MCH 31.3 pg (25.7-33.7); MCHC 32.8 g/dl (32.0-35.9); MEAN CELL VOLUME 95.5 fl (80-96); MEAN PLT VOLUME 9.5 fl (7.5-11.1); NEUT % 67.8 % (42.8-82.8); PLATELET COUNT 201 K/MM3 (134-434); RBC 4.72 M/mm3 (4.00-5.60); RDW 15.6 % (11.9-15.9)
[2019-10-28 08:48] LABS: POTASSIUM 4.3 mmol/L (3.5-5.1)
[2019-10-28 08:56] LABS: ALBUMIN 2.9 g/dl (3.4-5.0); BILIRUBIN,TOTAL 0.4 mg/dL (0.2-1); BLOOD UREA NITROGEN 23.7 mg/dL (7-18); CALCIUM 9.1 mg/dL (8.5-10.1); CREATININE 1.2 mg/dL (0.55-1.3); MAGNESIUM 2.2 mg/dL (1.8-2.4); TOT PROT 6.2 g/dl (6.4-8.2)
[2019-10-28] MEDS ORDERED: AZITHROMYCIN 250 MG TABLET PO SCH (10:00)
--- NOTE | 2019-10-28 11:57 | PN ---
Progress Note, Physician History of Present Illness: Mr. Chisholm is a 49-year-old black male with history of hypertension, noncompliant with medications, history of bronchial asthma since childhood,and smoking 1 ppd for years, acute/chronic alcoholism, presents with 1 month of progressive shortness of breath. Patient reports predominantly nighttime dyspnea that awakens him from sleep, no associated chest pain. He was seen at an urgent care about 1 month ago and prescribed albuterol for presumed asthma exacerbation, has been using it primarily at night with these events but without improvement. Last night, had a more significant episode so he presents for evaluation. Patient also reports 1 month of progressive dyspnea on exertion, notes previously being able to walk 2 flights of stairs in his home, but now has to stop at the top because of shortness of breath. Denies any chest pain, denies any wheezing, some cough with clear sputum, no leg swelling. No recent travel, no drug use, active smoker. Patient did report having a cardiac catheterization a few years ago, reportedly normal. - Current Medication List Current Medications: Active Medications Albuterol/Ipratropium (Duoneb -) 1 amp NEB Q4H PRN PRN Reason: SHORTNESS OF BREATH Enoxaparin Sodium (Lovenox -) 40 mg SQ DAILY [facility] Last Admin: 10/27/19 09:29 Dose: 40 mg Documented by: Metoprolol Succinate (Toprol Xl -) 25 mg PO DAILY [facility] Nicotine (Nicoderm Patch -) 21 mg TD DAILY [facility] Last Admin: 10/27/19 09:30 Dose: 21 mg Documented by: Valsartan (Diovan -) 160 mg PO DAILY [facility] - Objective Vital Signs: Vital Signs Temperature 97.6 F 10/28/19 05:55 Pulse Rate 85 10/28/19 07:53 Respiratory Rate 20 10/28/19 05:55 Blood Pressure 116/61 10/28/19 05:55 O2 Sat by Pulse Oximetry (%) 98 10/28/19 07:53 Eyes: Yes: WNL, Conjunctiva Clear, EOM Intact HENT: Yes: WNL, Atraumatic, Normocephalic Neck: Yes: WNL, Supple, Trachea Midline Cardiovascular: Yes: WNL, Regular Rate and Rhythm Respiratory: Yes: WNL, Regular, CTA Bilaterally Gastrointestinal: Yes: WNL, Normal Bowel Sounds Genitourinary: Yes: WNL Musculoskeletal: Yes: WNL Extremities: Yes: WNL Edema: No Integumentary: Yes: WNL Neurological: Yes: WNL, Alert, Oriented ...Motor Strength: WNL Psychiatric: Yes: WNL Labs: CBC, BMP 10/28/19 07:00 10/28/19 07:00 INR, PTT INR 0.96 (0.83-1.09) 10/26/19 08:00 Assessment/Plan Acute/chronic respiratory distress Bronchial asthma Uncontrolled HTN Acute/chronic CHF Multiple CAD risks Noncompliance to medications Mild TNI elevation Plan: Bronchodilators, O2, steroids, antibiotics per automotive glazier, ID. Nicotine patch ECHO for LVEF, valve status. EKG: Sinus tachycardia; LVH On valsartan, HCTZ, and furosemide. F/u BUN/Cr, electrolytes, daily weight, Is and Os. F/u Lipid profile, HGBA1c, TSH. MIBI stress tets
[2019-10-28] MEDS ORDERED: PT OWN MED DRAWER 7, Y5N ONE (12:02)
--- NOTE | 2019-10-28 12:11 | PN ---
Progress Note (short form) - Note Progress Note: Breathing feels better. [place] better overnight using NIPPV support. Intake & Output 10/25/19 10/26/19 10/27/19 10/28/19 23:59 23:59 23:59 23:59 Intake Total 830 0 Balance 830 0 Weight 176 lb 1.6 oz 175 lb 1 oz 176 lb 6 oz Last Vital Signs Temp Pulse Resp BP Pulse Ox 97.6 F 85 20 116/61 98 10/28/19 05:55 10/28/19 07:53 10/28/19 05:55 10/28/19 05:55 10/28/19 07:53 Active Medications Albuterol/Ipratropium (Duoneb -) 1 amp NEB Q4H PRN PRN Reason: SHORTNESS OF BREATH Enoxaparin Sodium (Lovenox -) 40 mg SQ DAILY [facility] Last Admin: 10/27/19 09:29 Dose: 40 mg Documented by: Metoprolol Succinate (Toprol Xl -) 25 mg PO DAILY [facility] Nicotine (Nicoderm Patch -) 21 mg TD DAILY [facility] Last Admin: 10/27/19 09:30 Dose: 21 mg Documented by: Valsartan (Diovan -) 160 mg PO DAILY [facility] Constitutional: Yes: No Distress, Calm Eyes: Yes: Conjunctiva Clear, EOM Intact HENT: Yes: Atraumatic, Normocephalic Neck: Yes: Supple, Trachea Midline Cardiovascular: Yes: Regular Rate and Rhythm Respiratory: Yes: Diminished. No: Accessory Muscle Use, Rales, Rhonchi, SOB, SOB on Exertion, Stridor, Tachypnea, Wheezes ...Inspection: Yes: WNL ...Clubbing: No Gastrointestinal: Yes: Normal Bowel Sounds, Soft Renal/: Yes: WNL Musculoskeletal: Yes: WNL Extremities: Yes: WNL Edema: Yes Peripheral Pulses WNL: Yes Integumentary: Yes: WNL Neurological: Yes: WNL, Alert, Oriented ...Motor Strength: WNL Psychiatric: Yes: WNL, Alert, Oriented Labs: Laboratory Results - last 24 hr 10/28/19 10/28/19 07:00 07:00 WBC 11.0 H RBC 4.72 Hgb 14.8 Hct 45.1 MCV 95.5 MCH 31.3 MCHC 32.8 RDW 15.6 Plt Count 201 MPV 9.5 Absolute Neuts (auto) 7.5 Neutrophils % 67.8 Lymphocytes % 25.9 D Monocytes % 6.0 Eosinophils % 0.1 Basophils % 0.2 Nucleated RBC % 0 Sodium 140 Potassium 4.3 Chloride 105 Carbon Dioxide 30 Anion Gap 4 L BUN 23.7 H Creatinine 1.2 Est GFR (CKD-EPI)AfAm 82.96 Est GFR (CKD-EPI)NonAf 71.58 Random Glucose 102 Calcium 9.1 Magnesium 2.2 Total Bilirubin 0.4 AST 20 ALT 33 Alkaline Phosphatase 46 Total Protein 6.2 L Albumin 2.9 L Imaging - Results Chest X-ray: Report Reviewed, Image Reviewed Problem List - Problems (1) Pulmonary vascular congestion Code(s): R09.89 - OTH SYMPTOMS AND SIGNS INVOLVING THE CIRC AND RESP SYSTEMS (2) Asthma Code(s): J45.909 - UNSPECIFIED ASTHMA, UNCOMPLICATED (3) Acute CHF (congestive heart failure) Code(s): I50.9 - HEART FAILURE, UNSPECIFIED Qualifiers: Heart failure type: unspecified Qualified Code(s): I50.9 - Heart failure, unspecified Assessment/Plan IMP: Do not suspect AE of Intermittent Asthma Do not suspect PNA R/O OSAS PLAN: Monitor off systemic steroids Monitor off ABX No smoking was counseled Supplemental O2 as needed Outpatient PFTs once stable Sleep study BD [place] PRN Dr Mccullough SHANA Screen - SHANA History Previously diagnosed with Sleep Apnea: No If Yes, currently using CPAP to treat your SHANA: No - SNORING Do you snore loudly (enough to be heard thru closed doors)?: Yes - TIRED Do you often feel tired, fatigued, or sleepy during daytime?: Yes - OBSERVED Has anyone observed you stop breathing during your sleep?: Yes - BLOOD PRESSURE Do you have or are being treated for high blood pressure?: Yes - BMI Answer Y if weight exceeds amount listed for your height: No .: HEIGHT & WEIGHT (lbs): 4'10" 167lbs; 4'11" 175 lbs; 5'0" 179lbs;. 5'1" 185lbs; 5'2" 191lbs; 5'3" 197lbs;. 5'4" 204lbs; 5'5" 210lbs; 5'6" 216lbs;. 5'7" 223lbs; 5'8" 230lbs; 5'9" 237lbs;. 5'10" 243lbs; 5'11" 250lbs; 6' 258lbs;. 6'1" 265lbs; 6'2" 272lbs; 6'3" 279lbs;. 6'4" 287lbs; 6'5" 295lbs - AGE Is your age over 50 yrs old?: No - NECK CIRCUMFERENCE Neck Circumference 40cm: No - GENDER Male: Yes - SCORE Total Score: 5 Score Interpretation: High Risk of SHANA .: Interpretation: Score 0-2: Low Risk SHANA. Score 3-4: Intermediate Risk SHANA. Score 5-8: High Risk SHANA Problem List - Problems (1) Pulmonary vascular congestion Code(s): R09.89 - OTH SYMPTOMS AND SIGNS INVOLVING THE CIRC AND RESP SYSTEMS (2) Asthma Code(s): J45.909 - UNSPECIFIED ASTHMA, UNCOMPLICATED (3) Acute CHF (congestive heart failure) Code(s): I50.9 - HEART FAILURE, UNSPECIFIED Qualifiers: Heart failure type: unspecified Qualified Code(s): I50.9 - Heart failure, unspecified
[2019-10-28] MEDS: ENOXAPARIN NA (PORCINE) 40 MG/0.4 ML DISP.SYRIN SQ SCH (12:35)
[2019-10-28] MEDS: NICOTINE 21 MG/24 HOURS TOPICAL PATCH TD SCH (12:35)
[2019-10-28] MEDS: metoPROLOL SUCCINATE 25 MG TAB.SR.24H (FP) PO SCH (12:35)
[2019-10-28] MEDS: VALSARTAN 160 MG TABLET (UD) PO SCH (12:41)
--- NOTE | 2019-10-28 13:35 | PN ---
Teaching Attending Note Name of Resident: Suma Scanlon ATTENDING PHYSICIAN STATEMENT I saw and evaluated the patient. I reviewed the resident's note and discussed the case with the resident. I agree with the resident's findings and plan as documented. SUBJECTIVE: pt seen and examined at bedside, much improved OBJECTIVE: Last Vital Signs Temp Pulse Resp BP Pulse Ox 97.6 F 88 20 120/88 98 10/28/19 05:55 10/28/19 12:40 10/28/19 12:40 10/28/19 12:40 10/28/19 12:40 GENERAL: Awake, alert, and fully oriented, in no acute distress. HEENT: NC/AT, not P/C/J, neck supple no JVD LUNGS: Breath sounds equal, clear to auscultation bilaterally. No wheezes, and no crackles. No accessory muscle use. HEART: Regular rate and rhythm, normal S1 and S2 soft systolic LSB 1/6 murmur, rub or gallop. ABDOMEN: Soft, nontender, not distended, normoactive bowel sounds, no guarding, no rebound, no masses. No hepatomegaly or splenomegaly. LOWER EXTREMITIES: 2+ pulses, warm, well-perfused. No calf tenderness. No peripheral edema. rt varicose veins noted NEUROLOGICAL: Cranial nerves II-XII intact. Normal speech. Normal gait. SKIN: Warm, dry, normal turgor, no rashes or lesions noted, normal capillary refill. CBCD WBC 11.0 K/mm3 (4.0-10.0) H 10/28/19 07:00 RBC 4.72 M/mm3 (4.00-5.60) 10/28/19 07:00 Hgb 14.8 GM/dL (11.7-16.9) 10/28/19 07:00 Hct 45.1 % (35.4-49) 10/28/19 07:00 MCV 95.5 fl (80-96) 10/28/19 07:00 MCHC 32.8 g/dl (32.0-35.9) 10/28/19 07:00 RDW 15.6 % (11.9-15.9) 10/28/19 07:00 Plt Count 201 K/MM3 (134-434) 10/28/19 07:00 MPV 9.5 fl (7.5-11.1) 10/28/19 07:00 CMP Sodium 140 mmol/L (136-145) 10/28/19 07:00 Potassium 4.3 mmol/L (3.5-5.1) 10/28/19 07:00 Chloride 105 mmol/L (98-107) 10/28/19 07:00 Carbon Dioxide 30 mmol/L (21-32) 10/28/19 07:00 Anion Gap 4 MMOL/L (8-16) L 10/28/19 07:00 BUN 23.7 mg/dL (7-18) H 10/28/19 07:00 Creatinine 1.2 mg/dL (0.55-1.3) 10/28/19 07:00 Calcium 9.1 mg/dL (8.5-10.1) 10/28/19 07:00 Total Bilirubin 0.4 mg/dL (0.2-1) 10/28/19 07:00 AST 20 U/L (15-37) 10/28/19 07:00 ALT 33 U/L (13-61) 10/28/19 07:00 Alkaline Phosphatase 46 U/L (45-117) 10/28/19 07:00 Total Protein 6.2 g/dl (6.4-8.2) L 10/28/19 07:00 Albumin 2.9 g/dl (3.4-5.0) L 10/28/19 07:00 Active Medications Albuterol/Ipratropium (Duoneb -) 1 amp NEB Q4H PRN PRN Reason: SHORTNESS OF BREATH Enoxaparin Sodium (Lovenox -) 40 mg SQ DAILY [facility] Last Admin: 10/28/19 12:35 Dose: 40 mg Documented by: Metoprolol Succinate (Toprol Xl -) 25 mg PO DAILY [facility] Last Admin: 10/28/19 12:35 Dose: 25 mg Documented by: Nicotine (Nicoderm Patch -) 21 mg TD DAILY [facility] Last Admin: 10/28/19 12:35 Dose: 21 mg Documented by: Valsartan (Diovan -) 160 mg PO DAILY [facility] Last Admin: 10/28/19 12:41 Dose: 160 mg Documented by: ASSESSMENT AND PLAN: 49 year old male with PMH of seasonal asthma, HTN, and varicose veins presented to ED complaining from dyspnea, paroxysmal nocturnal dysnpea # Acute HFrEF - non compliant with medications - stated feeling much better compared to yesterday - ECHO EF40% with mild/mod global hpokinesis of lt ventricle - discussed smoking cessations, medication compliance, low salt diet - daily wt, I/O - on ACEi, BB, D/C lasix (pt is euvolemic) - MIBI scan done - cardiology consult appreciated - pulmonary consult appreciated - Nephrology consult appreciated HTN Asthma varicose veins DVT prophylaxis Plan: Discharge planning pending MIBI report for outpatient follow up with copy editor, outpatient sleep studies
--- NOTE | 2019-10-28 14:14 | PN ---
Physical Exam: SUBJECTIVE: Patient seen and examined OBJECTIVE: Vital Signs Temperature 98.8 F 10/28/19 13:48 Pulse Rate 86 10/28/19 13:50 Respiratory Rate 20 10/28/19 13:48 Blood Pressure 104/67 10/28/19 13:48 O2 Sat by Pulse Oximetry (%) 99 10/28/19 13:50 GENERAL: The patient is awake, alert, and fully oriented, NAD HEAD: Normal with no signs of trauma. EYES:PERRLA, EOMI, sclera anicteric, conjunctiva clear. ENT: moist mucous membranes. NECK: supple. LUNGS: Decreased breath sounds on bilateral bases. No crackles or wheezing HEART: Regular rate and rhythm, S1, S2 without murmur ABDOMEN: Soft, nontender, nondistended, normoactive bowel sounds, EXTREMITIES: 2+ pulses, warm, well-perfused, no edema. NEUROLOGICAL: Cranial nerves II through XII grossly intact. Normal speech PSYCH: Normal mood, normal affect. SKIN: Warm, dry, normal turgor Laboratory Results - last 24 hr 10/28/19 10/28/19 07:00 07:00 WBC 11.0 H RBC 4.72 Hgb 14.8 Hct 45.1 MCV 95.5 MCH 31.3 MCHC 32.8 RDW 15.6 Plt Count 201 MPV 9.5 Absolute Neuts (auto) 7.5 Neutrophils % 67.8 Lymphocytes % 25.9 D Monocytes % 6.0 Eosinophils % 0.1 Basophils % 0.2 Nucleated RBC % 0 Sodium 140 Potassium 4.3 Chloride 105 Carbon Dioxide 30 Anion Gap 4 L BUN 23.7 H Creatinine 1.2 Est GFR (CKD-EPI)AfAm 82.96 Est GFR (CKD-EPI)NonAf 71.58 Random Glucose 102 Calcium 9.1 Magnesium 2.2 Total Bilirubin 0.4 AST 20 ALT 33 Alkaline Phosphatase 46 Total Protein 6.2 L Albumin 2.9 L Active Medications Generic Name Dose Route Start Last Admin Trade Name Freq PRN Reason Stop Dose Admin Albuterol/Ipratropium 1 amp 10/26/19 11:43 Duoneb - NEB Q4H PRN SHORTNESS OF BREATH Enoxaparin Sodium 40 mg 10/27/19 10:00 10/28/19 12:35 Lovenox - SQ 40 mg DAILY [facility]US[facility] Administration Metoprolol Succinate 25 mg 10/28/19 10:00 10/28/19 12:35 Toprol Xl - PO 25 mg DAILY [facility]USAN Administration Nicotine 21 mg 10/26/19 19:00 10/28/19 12:35 Nicoderm Patch - TD 21 mg DAILY SUSAN Administration Valsartan 160 mg 10/27/19 13:18 10/28/19 12:41 Diovan - PO 160 mg DAILY [facility] Administration ASSESSMENT/PLAN: Patient is a 49 year old male with PMH of asthma and HTN, presented to the ER with acutely worsening SOB that began at 2AM while he was asleep, with a history of 1 month of worsening asthma symptoms uncontrolled by Albuterol IH. Found to have congestive changes on CXR with questionable R infiltrate as well as BNP of 2.2k. #Shortness of breath -likely 2/2 acute vs acute on chronic? CHF, r/o SHANA -BNP elevated -Echo - LV normal, mild to mod global hypokinesis of LV, EF 40%. Mild MR, Trace TR -blood/urine legion[place],pneumonia, covid negative -Patient euvolemic now, will hold off on further lasix -abx, steroids discontinued -start Toprol XL 25mg daily, hold HCTZ -Continue Valsartan -Duonebs prn -daily weights, I&O -monitor electrolytes and replete prn -MIBI stress test pending -Cardiology consulted. REcs appreciated. -Nephrology consulted. REcs appreciated. -Pulmonology consulted. Recs appreciated. #HTN -Continue Olmesartan -will hold HCTZ -started on Toprol XL and on Lasix #FEN -Not on any standing fluids -Electrolytes wnl, routine bmp monitoring -Sodium restricted diet #Prophylaxis - Lovenox 40mg sq daily #Dispo -full code -med surg Visit type - Emergency Visit Emergency Visit: Yes ED Registration Date: 10/26/19 Care time: The patient presented to the Emergency Department on the above date and was hospitalized for further evaluation of their emergent condition. - New Patient This patient is new to me today: No - Critical Care Critical Care patient: No ATTENDING PHYSICIAN STATEMENT I saw and evaluated the patient. I reviewed the resident's note and discussed the case with the resident. I agree with the resident's findings and plan as documented. SUBJECTIVE: OBJECTIVE: ASSESSMENT AND PLAN:
--- NOTE | 2019-10-28 15:07 | PN ---
Progress Note, Physician History of Present Illness: Pt seen and examined at bedside. He is awake and alert. He denies shortness of breath at rest. - Current Medication List Current Medications: Active Medications Albuterol/Ipratropium (Duoneb -) 1 amp NEB Q4H PRN PRN Reason: SHORTNESS OF BREATH Enoxaparin Sodium (Lovenox -) 40 mg SQ DAILY [facility] Last Admin: 10/28/19 12:35 Dose: 40 mg Documented by: Metoprolol Succinate (Toprol Xl -) 25 mg PO DAILY [facility] Last Admin: 10/28/19 12:35 Dose: 25 mg Documented by: Nicotine (Nicoderm Patch -) 21 mg TD DAILY [facility] Last Admin: 10/28/19 12:35 Dose: 21 mg Documented by: Valsartan (Diovan -) 160 mg PO DAILY [facility] Last Admin: 10/28/19 12:41 Dose: 160 mg Documented by: - Objective Vital Signs: Vital Signs Temperature 98.8 F 10/28/19 13:48 Pulse Rate 86 10/28/19 13:50 Respiratory Rate 20 10/28/19 13:48 Blood Pressure 104/67 10/28/19 13:48 O2 Sat by Pulse Oximetry (%) 99 10/28/19 13:50 Constitutional: Yes: Calm Eyes: Yes: Conjunctiva Clear HENT: Yes: Atraumatic Neck: Yes: Supple Cardiovascular: Yes: S1, S2 Respiratory: Yes: CTA Bilaterally Gastrointestinal: Yes: Normal Bowel Sounds, Soft Genitourinary: Yes: WNL Musculoskeletal: Yes: WNL Edema: No Integumentary: Yes: WNL Neurological: Yes: Oriented Psychiatric: Yes: Oriented Labs: CBC, BMP 10/28/19 07:00 10/28/19 07:00 INR, PTT INR 0.96 (0.83-1.09) 10/26/19 08:00 Problem List - Problems (1) Acute CHF (congestive heart failure) Code(s): I50.9 - HEART FAILURE, UNSPECIFIED Qualifiers: Heart failure type: unspecified Qualified Code(s): I50.9 - Heart failure, unspecified (2) Acute respiratory failure with hypoxia Code(s): J96.01 - ACUTE RESPIRATORY FAILURE WITH HYPOXIA Assessment/Plan Current Medications Generic Name Dose Route Start Last Admin Trade Name Freq PRN Reason Stop Dose Admin Albuterol/Ipratropium 1 amp 10/26/19 11:43 Duoneb - NEB Q4H PRN SHORTNESS OF BREATH Enoxaparin Sodium 40 mg 10/27/19 10:00 10/28/19 12:35 Lovenox - SQ 40 mg DAILY [facility] Administration Metoprolol Succinate 25 mg 10/28/19 10:00 10/28/19 12:35 Toprol Xl - PO 25 mg DAILY [facility] Administration Nicotine 21 mg 10/26/19 19:00 10/28/19 12:35 Nicoderm Patch - TD 21 mg DAILY [facility]USAN Administration Valsartan 160 mg 10/27/19 13:18 10/28/19 12:41 Diovan - PO 160 mg DAILY [facility] Administration Impression 1. chf 2. pna 3. htn - non compliant with meds 4. hypoxia 5. fever Plan - cont valsartan - camp nurse improved - renal ultrasound reviewed - echo report reviewed - cont lasix - discussed compliance with meds
[2019-10-29 07:43] LABS: BASO % 0.6 % (0-2.0); EOS % 1.7 % (0-4.5); HEMATOCRIT 48.8 % (35.4-49); LYMPH % 48.2 % (8-40); MCH 31.3 pg (25.7-33.7); MCHC 32.8 g/dl (32.0-35.9); MEAN CELL VOLUME 95.5 fl (80-96); MEAN PLT VOLUME 9.2 fl (7.5-11.1); MONO % 9.2 % (3.8-10.2); NEUT % 40.3 % (42.8-82.8); PLATELET COUNT 205 K/MM3 (134-434); RBC 5.11 M/mm3 (4.00-5.60); RDW 15.4 % (11.9-15.9); WHITE BLOOD COUNT 7.1 K/mm3 (4.0-10.0)
[2019-10-29 07:57] LABS: BLOOD UREA NITROGEN 23.7 mg/dL (7-18); CALCIUM 9.1 mg/dL (8.5-10.1); CREATININE 1.2 mg/dL (0.55-1.3); POTASSIUM 5.2 mmol/L (3.5-5.1)
[2019-10-29] MEDS: NICOTINE 21 MG/24 HOURS TOPICAL PATCH TD SCH (09:47)
[2019-10-29] MEDS: metoPROLOL SUCCINATE 25 MG TAB.SR.24H (FP) PO SCH (09:59)
[2019-10-29] MEDS: ENOXAPARIN NA (PORCINE) 40 MG/0.4 ML DISP.SYRIN SQ SCH (09:59)
[2019-10-29] MEDS ORDERED: FUROSEMIDE 20 MG TABLET (FP) PO SCH (10:00)
[2019-10-29] MEDS: VALSARTAN 160 MG TABLET (UD) PO SCH (10:00)
--- NOTE | 2019-10-29 10:31 | PN ---
Progress Note, Physician History of Present Illness: pulmonary alert,comfortable,-cp,-sob - Current Medication List Current Medications: Active Medications Albuterol/Ipratropium (Duoneb -) 1 amp NEB Q4H PRN PRN Reason: SHORTNESS OF BREATH Enoxaparin Sodium (Lovenox -) 40 mg SQ DAILY [facility] Last Admin: 10/29/19 09:59 Dose: 40 mg Documented by: Furosemide (Lasix -) 20 mg PO DAILY [facility] Last Admin: 10/29/19 09:59 Dose: 20 mg Documented by: Metoprolol Succinate (Toprol Xl -) 25 mg PO DAILY [facility] Last Admin: 10/29/19 09:59 Dose: 25 mg Documented by: Nicotine (Nicoderm Patch -) 21 mg TD DAILY [facility] Last Admin: 10/29/19 09:47 Dose: 21 mg Documented by: Valsartan (Diovan -) 160 mg PO DAILY [facility] Last Admin: 10/29/19 10:00 Dose: 160 mg Documented by: - Objective Vital Signs: Vital Signs Temperature 97.6 F 10/29/19 05:00 Pulse Rate 73 10/29/19 05:00 Respiratory Rate 16 10/29/19 05:00 Blood Pressure 98/60 10/29/19 05:00 O2 Sat by Pulse Oximetry (%) 97 10/29/19 08:32 Constitutional: Yes: Well Nourished, Calm Eyes: Yes: WNL HENT: Yes: WNL Neck: Yes: WNL Cardiovascular: Yes: Regular Rate and Rhythm, S1, S2 Respiratory: Yes: CTA Bilaterally Gastrointestinal: Yes: Normal Bowel Sounds, Soft Extremities: Yes: WNL Edema: No Labs: CBC, BMP 10/29/19 06:56 10/29/19 06:56 INR, PTT INR 0.96 (0.83-1.09) 10/26/19 08:00 Assessment/Plan Problem List - Problems (1) Pulmonary vascular congestion Code(s): R09.89 - OTH SYMPTOMS AND SIGNS INVOLVING THE CIRC AND RESP SYSTEMS (2) Asthma Code(s): J45.909 - UNSPECIFIED ASTHMA, UNCOMPLICATED (3) Acute CHF (congestive heart failure) Code(s): I50.9 - HEART FAILURE, UNSPECIFIED Qualifiers: Heart failure type: unspecified Qualified Code(s): I50.9 - Heart failure, unspecified Assessment/Plan IMP: Do not suspect AE of Intermittent Asthma Do not suspect PNA R/O OSAS CHF PLAN: No smoking was counseled Supplemental O2 as needed Outpatient PFTs once stable Sleep study BD TX PRN Cardiac w/u sleep screen DR MORALES
--- NOTE | 2019-10-29 11:37 | PN ---
Teaching Attending Note Name of Resident: Suma Scanlon ATTENDING PHYSICIAN STATEMENT I saw and evaluated the patient. I reviewed the resident's note and discussed the case with the resident. I agree with the resident's findings and plan as documented. SUBJECTIVE: pt seen and examined OBJECTIVE: Last Vital Signs Temp Pulse Resp BP Pulse Ox 97.9 F 82 18 101/77 99 10/29/19 10:00 10/29/19 10:00 10/29/19 10:00 10/29/19 10:00 10/29/19 10:00 GENERAL: Awake, alert, and fully oriented, in no acute distress. HEENT: NC/AT, not P/C/J, neck supple no JVD LUNGS: Breath sounds equal, clear to auscultation bilaterally. No wheezes, and no crackles. No accessory muscle use. HEART: Regular rate and rhythm, normal S1 and S2 soft systolic LSB 1/6 murmur, rub or gallop. ABDOMEN: Soft, nontender, not distended, normoactive bowel sounds, no guarding, no rebound, no masses. No hepatomegaly or splenomegaly. LOWER EXTREMITIES: 2+ pulses, warm, well-perfused. No calf tenderness. No peripheral edema. rt varicose veins noted NEUROLOGICAL: Cranial nerves II-XII intact. Normal speech. Normal gait. SKIN: Warm, dry, normal turgor, no rashes or lesions noted, normal capillary refill. CBCD WBC 7.1 K/mm3 (4.0-10.0) 10/29/19 06:56 RBC 5.11 M/mm3 (4.00-5.60) 10/29/19 06:56 Hgb 16.0 GM/dL (11.7-16.9) 10/29/19 06:56 Hct 48.8 % (35.4-49) 10/29/19 06:56 MCV 95.5 fl (80-96) 10/29/19 06:56 MCHC 32.8 g/dl (32.0-35.9) 10/29/19 06:56 RDW 15.4 % (11.9-15.9) 10/29/19 06:56 Plt Count 205 K/MM3 (134-434) 10/29/19 06:56 MPV 9.2 fl (7.5-11.1) 10/29/19 06:56 CMP Sodium 139 mmol/L (136-145) 10/29/19 06:56 Potassium 5.2 mmol/L (3.5-5.1) H 10/29/19 06:56 Chloride 105 mmol/L (98-107) 10/29/19 06:56 Carbon Dioxide 31 mmol/L (21-32) 10/29/19 06:56 Anion Gap 3 MMOL/L (8-16) L 10/29/19 06:56 BUN 23.7 mg/dL (7-18) H 10/29/19 06:56 Creatinine 1.2 mg/dL (0.55-1.3) 10/29/19 06:56 Calcium 9.1 mg/dL (8.5-10.1) 10/29/19 06:56 Total Bilirubin 0.4 mg/dL (0.2-1) 10/28/19 07:00 AST 20 U/L (15-37) 10/28/19 07:00 ALT 33 U/L (13-61) 10/28/19 07:00 Alkaline Phosphatase 46 U/L (45-117) 10/28/19 07:00 Total Protein 6.2 g/dl (6.4-8.2) L 10/28/19 07:00 Albumin 2.9 g/dl (3.4-5.0) L 10/28/19 07:00 Active Medications Albuterol/Ipratropium (Duoneb -) 1 amp NEB Q4H PRN PRN Reason: SHORTNESS OF BREATH Enoxaparin Sodium (Lovenox -) 40 mg SQ DAILY [facility] Last Admin: 10/29/19 09:59 Dose: 40 mg Documented by: Furosemide (Lasix -) 20 mg PO DAILY [facility] Last Admin: 10/29/19 09:59 Dose: 20 mg Documented by: Metoprolol Succinate (Toprol Xl -) 25 mg PO DAILY [facility] Last Admin: 10/29/19 09:59 Dose: 25 mg Documented by: Nicotine (Nicoderm Patch -) 21 mg TD DAILY [facility] Last Admin: 10/29/19 09:47 Dose: 21 mg Documented by: Valsartan (Diovan -) 160 mg PO DAILY [facility] Last Admin: 10/29/19 10:00 Dose: 160 mg Documented by: ASSESSMENT AND PLAN: 49 year old male with PMH of seasonal asthma, HTN, and varicose veins presented to ED complaining from dyspnea, paroxysmal nocturnal dysnpea # Acute HFrEF - non compliant with medications - family hx of HF/CAD at early age. - daily wt, I/O - on PO ACEi, BB, lasix - TTE was 40% but MIBI scan showing EF 20%with global hypokinesia - Tele transfer per cardiology, Cath? - Pt wanted to have his family basic acoustic analyst opinion - cardiology consult appreciated - pulmonary consult appreciated - Nephrology consult appreciated HTN Asthma varicose veins DVT prophylaxis
--- NOTE | 2019-10-29 13:22 | PN ---
Physical Exam: SUBJECTIVE: Patient seen and examined. Patient preferred to use bipap at bedtime which improved his sleeping. OBJECTIVE: Vital Signs Temperature 97.9 F 10/29/19 10:00 Pulse Rate 82 10/29/19 10:00 Respiratory Rate 18 10/29/19 10:00 Blood Pressure 101/77 10/29/19 10:00 O2 Sat by Pulse Oximetry (%) 99 10/29/19 10:00 GENERAL: The patient is awake, alert, and fully oriented, NAD HEAD: Normal with no signs of trauma. EYES:PERRLA, EOMI, sclera anicteric, conjunctiva clear. ENT: moist mucous membranes. NECK: supple. LUNGS: Decreased breath sounds on bilateral bases. No crackles or wheezing HEART: Regular rate and rhythm, S1, S2 without murmur ABDOMEN: Soft, nontender, nondistended, normoactive bowel sounds, EXTREMITIES: 2+ pulses, warm, well-perfused, no edema. NEUROLOGICAL: Cranial nerves II through XII grossly intact. Normal speech PSYCH: Normal mood, normal affect. SKIN: Warm, dry, normal turgor Laboratory Results - last 24 hr 10/29/19 10/29/19 06:56 06:56 WBC 7.1 RBC 5.11 Hgb 16.0 Hct 48.8 MCV 95.5 MCH 31.3 MCHC 32.8 RDW 15.4 Plt Count 205 MPV 9.2 Absolute Neuts (auto) 2.9 Neutrophils % 40.3 L D Lymphocytes % 48.2 H D Monocytes % 9.2 Eosinophils % 1.7 D Basophils % 0.6 Nucleated RBC % 0 Sodium 139 Potassium 5.2 H Chloride 105 Carbon Dioxide 31 Anion Gap 3 L BUN 23.7 H Creatinine 1.2 Est GFR (CKD-EPI)AfAm 82.96 Est GFR (CKD-EPI)NonAf 71.58 Random Glucose 81 Calcium 9.1 Active Medications Generic Name Dose Route Start Last Admin Trade Name Freq PRN Reason Stop Dose Admin Albuterol/Ipratropium 1 amp 10/26/19 11:43 Duoneb - NEB Q4H PRN SHORTNESS OF BREATH Enoxaparin Sodium 40 mg 10/27/19 10:00 10/29/19 09:59 Lovenox - SQ 40 mg DAILY SUSAN Administration Furosemide 20 mg 10/29/19 10:00 08/07/20 09:59 Lasix - PO 20 mg DAILY SUSAN Administration Metoprolol Succinate 25 mg 10/28/19 10:00 10/29/19 09:59 Toprol Xl - PO 25 mg DAILY [facility]USAN Administration Nicotine 21 mg 10/26/19 19:00 10/29/19 09:47 Nicoderm Patch - TD 21 mg DAILY [facility]USAN Administration Valsartan 160 mg 10/27/19 13:18 10/29/19 10:00 Diovan - PO 160 mg DAILY [facility]USAN Administration ASSESSMENT/PLAN: Patient is a 49 year old male with PMH of asthma and HTN, presented to the ER with acutely worsening SOB that began at 2AM while he was asleep, with a history of 1 month of worsening asthma symptoms uncontrolled by Albuterol IH. Found to have congestive changes on CXR with questionable R infiltrate as well as BNP of 2.2k. #Shortness of breath -likely 2/2 acute CHF, r/o SHANA -BNP elevated -Echo - LV normal, mild to mod global hypokinesis of LV, EF 40%. Mild MR, Trace TR -MIBI Stress test - small size, mild intensity reversible defect of inferoseptal wall from apex to base c/w ischemia. No TID. Global hypokinesis. LVEF 20% -Patient transferred to telemetry -sleep study pending -continue NIPPV at bedtime, prn during the day -blood/urine legion[place],pneumonia, covid negative -continue PO lasix -abx, steroids discontinued -start Toprol XL 25mg daily, hold HCTZ -Continue Valsartan -Duonebs prn -daily weights, I&O -monitor electrolytes and replete prn -Cardiology consulted. REcs appreciated. -Nephrology consulted. REcs appreciated. -Pulmonology consulted. Recs appreciated. #HTN -Continue Olmesartan -will hold HCTZ -started on Toprol XL and Lasix #FEN -Not on any standing fluids -Electrolytes wnl, routine bmp monitoring -Sodium restricted diet #Prophylaxis - Lovenox 40mg sq daily #Dispo -full code -tele Visit type - Emergency Visit Emergency Visit: Yes ED Registration Date: 10/26/19 Care time: The patient presented to the Emergency Department on the above date and was hospitalized for further evaluation of their emergent condition. - New Patient This patient is new to me today: No - Critical Care Critical Care patient: No ATTENDING PHYSICIAN STATEMENT I saw and evaluated the patient. I reviewed the resident's note and discussed the case with the resident. I agree with the resident's findings and plan as documented. SUBJECTIVE: OBJECTIVE: ASSESSMENT AND PLAN:
[2019-10-29] MEDS ORDERED: ALBUTEROL SO4 2.5/IPRATROPIUM 0.5 INH SOL 3 ML VIAL.NEB. NEB PRN (14:56)
--- NOTE | 2019-10-29 15:33 | PN ---
Progress Note, Physician History of Present Illness: Mr. Chisholm is a 49-year-old black male with history of hypertension, noncompliant with medications, history of bronchial asthma since childhood,and smoking 1 ppd for years, acute/chronic alcoholism, presents with 1 month of progressive shortness of breath. Patient reports predominantly nighttime dyspnea that awakens him from sleep, no associated chest pain. He was seen at an urgent care about 1 month ago and prescribed albuterol for presumed asthma exacerbation, has been using it primarily at night with these events but without improvement. Last night, had a more significant episode so he presents for evaluation. Patient also reports 1 month of progressive dyspnea on exertion, notes previously being able to walk 2 flights of stairs in his home, but now has to stop at the top because of shortness of breath. Denies any chest pain, denies any wheezing, some cough with clear sputum, no leg swelling. No recent travel, no drug use, active smoker. Patient did report having a cardiac catheterization a few years ago, reportedly normal. - Current Medication List Current Medications: Active Medications Albuterol/Ipratropium (Duoneb -) 1 amp NEB Q4H PRN PRN Reason: SHORTNESS OF BREATH Enoxaparin Sodium (Lovenox -) 40 mg SQ DAILY [facility] Furosemide (Lasix -) 20 mg PO DAILY [facility] Metoprolol Succinate (Toprol Xl -) 25 mg PO DAILY [facility] Nicotine (Nicoderm Patch -) 21 mg TD DAILY [facility] Valsartan (Diovan -) 160 mg PO DAILY [facility] - Objective Vital Signs: Vital Signs Temperature 97.9 F 10/29/19 10:00 Pulse Rate 82 10/29/19 10:00 Respiratory Rate 18 10/29/19 10:00 Blood Pressure 101/77 10/29/19 10:00 O2 Sat by Pulse Oximetry (%) 99 10/29/19 10:00 Eyes: Yes: WNL, Conjunctiva Clear, EOM Intact HENT: Yes: WNL, Atraumatic, Normocephalic Neck: Yes: WNL, Supple, Trachea Midline Cardiovascular: Yes: WNL, Regular Rate and Rhythm Respiratory: Yes: WNL, Regular, CTA Bilaterally Gastrointestinal: Yes: WNL, Normal Bowel Sounds Genitourinary: Yes: WNL Musculoskeletal: Yes: WNL Extremities: Yes: WNL Edema: No Integumentary: Yes: WNL Neurological: Yes: WNL, Alert, Oriented ...Motor Strength: WNL Psychiatric: Yes: WNL Labs: CBC, BMP 10/29/19 06:56 10/29/19 06:56 INR, PTT INR 0.96 (0.83-1.09) 10/26/19 08:00 Assessment/Plan Acute/chronic respiratory distress Bronchial asthma Uncontrolled HTN Acute/chronic systolic CHF Multiple CAD risks Noncompliance to medications Mild TNI elevation ECHO EF 40% MIBI ST EF 20% mild inferio septal ischemia Plan: Bronchodilators, O2, steroids, antibiotics per administrative support clerk, ID. Nicotine patch On valsartan, HCTZ, and furosemide. F/u BUN/Cr, electrolytes, daily weight, Is and Os. F/u Lipid profile, HGBA1c, TSH. Will need c cath. Patient refused understands risks of . will start ASA 81 QD will add Aldacton if BP tolerates. Start Lipitor 20 QHS Transfered to telemetry to monitor for arrhythmias
[2019-10-29] MEDS: ASPIRIN COATED 81 MG TABLET.EC PO SCH (15:38)
--- NOTE | 2019-10-29 16:11 | CON.CARD ---
Consult Consult Specialty:: Cardiology Referred by:: Hospitalist Medicine at the request of patient's family Reason for Consultation:: Second opinion for cath - History of Present Illness Chief Complaint: DUFFY History of Present Illness: Mr. Chisholm is a 49-year-old black male with history of hypertensive heart disease, noncompliant with medications, history of bronchial asthma since childhood,and smoking 1 ppd for years, acute/chronic alcoholism, presented with 1 month of progressive shortness of breath in context of elevated BP. Patient reports orthopnea and paroxysmal nocturnal dyspnea that awakens him from sleep, no associated chest pain. He was seen at an urgent care about 1 month ago and prescribed albuterol for presumed asthma exacerbation, has been using it primarily at night with these events but without improvement. Patient also reports 1 month of progressive dyspnea on exertion, notes previously being able to walk 2 flights of stairs in his home, but now has to stop at the top because of shortness of breath. Denies any chest pain, denies any wheezing, some cough with clear sputum, no leg swelling. No recent travel, no drug use, active smoker. Patient did report having a cardiac catheterization a few years ago, reportedly normal. He underwent diuresis and afterload reduction with improvement in symptoms. Reviewed echo LVEF<30%. Admits to medication and salt noncompliance, denies NSAID use. - History Source History Provided By: Patient Limitations to Obtaining History: No Limitations - Past Medical History Cardio/Vascular: Yes: HTN Pulmonary: Yes: Asthma, Bronchitis. No: Cancer, COPD, O2 Dependent, Pneumonia, Previously Intubated, Pulmonary Embolus, Pulmonary Fibrosis - Smoking History Smoking history: Current every day smoker Have you smoked in the past 12 months: Yes Aproximately how many cigarettes per day: 10 Home Medications - Allergies Allergies/Adverse Reactions: Allergies Allergy/AdvReac Type Severity Reaction Status Date / Time No Known Allergies Allergy Verified 10/26/19 07:06 - Home Medications Home Medications: Ambulatory Orders Albuterol Sulfate Inhaler - [Ventolin Hfa Inhaler -] 2 inh PO Q6H 10/26/19 Olmesartan/Hydrochlorothiazide [Olmesartan-Hctz 40-25 mg Tab] 1 each PO DAILY 10/26/19 Review of Systems - Review of Systems Cardiovascular: reports: Shortness of Breath Respiratory: reports: Exercise Intolerance, Orthopnea, PND, SOB, SOB on Exertion Vital Signs: Vital Signs Temperature 97.9 F 10/29/19 10:00 Pulse Rate 82 10/29/19 10:00 Respiratory Rate 18 10/29/19 10:00 Blood Pressure 101/77 10/29/19 10:00 O2 Sat by Pulse Oximetry (%) 98 10/29/19 16:03 Constitutional: Yes: No Distress, Calm Neck: Yes: Supple Respiratory: Yes: Regular, CTA Bilaterally Gastrointestinal: Yes: Normal Bowel Sounds, Soft Cardiovascular: Yes: Regular Rate and Rhythm JVD: No Carotid Bruit: No Heart Sounds: Yes: S1, S2 Murmur: Yes: Systolic Murmur, Grade 2 Edema: No - Other Data Labs, Other Data: CBC, BMP 10/29/19 06:56 10/29/19 06:56 INR, PTT INR 0.96 (0.83-1.09) 10/26/19 08:00 ST @ 116 LVH with nonspec T changes Echo: Report Reviewed Ejection Fraction %: LVEF < 40 % Imaging - Results Chest X-ray: Report Reviewed (10/28/19 Improved failure) Problem List - Problems (1) Hypertensive cardiomyopathy Code(s): I11.9 - HYPERTENSIVE HEART DISEASE WITHOUT HEART FAILURE; I43 - CARDIOMYOPATHY IN DISEASES CLASSIFIED ELSEWHERE Qualifiers: Heart failure presence: with heart failure Qualified Code(s): I11.0 - Hypertensive heart disease with heart failure; I43 - Cardiomyopathy in diseases classified elsewhere (2) Hyperlipidemia Code(s): E78.5 - HYPERLIPIDEMIA, UNSPECIFIED Qualifiers: Hyperlipidemia type: pure hypercholesterolemia Qualified Code(s): E78.00 - Pure hypercholesterolemia, unspecified; E78.0 - Pure hypercholesterolemia (3) Acute CHF (congestive heart failure) Code(s): I50.9 - HEART FAILURE, UNSPECIFIED Qualifiers: Heart failure type: combined systolic and diastolic Qualified Code(s): I50.41 - Acute combined systolic (congestive) and diastolic (congestive) heart failure (4) Pulmonary vascular congestion Code(s): R09.89 - OTH SYMPTOMS AND SIGNS INVOLVING THE CIRC AND RESP SYSTEMS Assessment/Plan 10/27/19 Echo: Normal LV size with severe global HK LVEF< 30%, mod MR, mild TR (my read) 10/27/19 ETT Myoview: Small size mild inferoseptal ischemia from apex to base c/w ischemia LVEF 20% 10/27/2019 Renal US: No hydrpnephrosis, normal kidneys 1. Acute on chronic diastolic/systolic heart failure 2. Hypertensive cardiomyopathy with failure 3. Bronchial vs cardiac asthma 4. Medication and diet noncompliance 5. CKD with mild hyperkalemia 6. Tobacco use P:1. Oral diuresis with monitor diuretic response, renal fxn and electrolytes, Lokelma per renal 2. Change Diovan to Entresto 49/51 bid, continue ASA 81 qd, Lipitor 20 qd, Toprol XL 25 qd with uptitration as hemodynamics tolerate, eventual aldosterone inhibition once hyperkalemia resolved 3. R&LHc may be useful to confirm etiology of cardiomyopathy and document filling pressures once euvolemic, but may be performed as outpatient 4. Consideration for Lifevest prior to d/c, re-evaluate LV fxn in 90 days on optimal medical therapy to assess ICD candidacy, cardiac MRI to assess delayed hyperenhancement as outpatient 5. Thank you for second opinion opportunity
--- NOTE | 2019-10-29 17:15 | PN ---
Progress Note, Physician History of Present Illness: Pt seen and examined at bedside. He is awake and alert. He denies shortness of breath. He denies edema. - Current Medication List Current Medications: Active Medications Albuterol/Ipratropium (Duoneb -) 1 amp NEB Q4H PRN PRN Reason: SHORTNESS OF BREATH Aspirin (Ecotrin -) 81 mg PO DAILY SUSAN Last Admin: 10/29/19 15:38 Dose: 81 mg Documented by: Atorvastatin Calcium (Lipitor -) 20 mg PO HS SUSAN Enoxaparin Sodium (Lovenox -) 40 mg SQ DAILY SUSAN Furosemide (Lasix -) 20 mg PO DAILY [facility] Metoprolol Succinate (Toprol Xl -) 25 mg PO DAILY SUS[facility] Nicotine (Nicoderm Patch -) 21 mg TD DAILY [facility] Valsartan (Diovan -) 160 mg PO DAILY [facility] - Objective Vital Signs: Vital Signs Temperature 97.9 F 10/29/19 10:00 Pulse Rate 82 10/29/19 10:00 Respiratory Rate 18 10/29/19 10:00 Blood Pressure 101/77 10/29/19 10:00 O2 Sat by Pulse Oximetry (%) 98 10/29/19 16:03 Constitutional: Yes: Calm Eyes: Yes: Conjunctiva Clear HENT: Yes: Atraumatic Neck: Yes: Supple Cardiovascular: Yes: S1, S2 Respiratory: Yes: CTA Bilaterally Gastrointestinal: Yes: Soft Genitourinary: Yes: WNL Musculoskeletal: Yes: WNL Edema: Yes Edema: LLE: Trace, RLE: Trace Neurological: Yes: Oriented Psychiatric: Yes: Oriented Labs: CBC, BMP 10/29/19 06:56 10/29/19 06:56 INR, PTT INR 0.96 (0.83-1.09) 10/26/19 08:00 Problem List - Problems (1) Acute CHF (congestive heart failure) Code(s): I50.9 - HEART FAILURE, UNSPECIFIED Qualifiers: Heart failure type: unspecified Qualified Code(s): I50.9 - Heart failure, unspecified (2) Acute respiratory failure with hypoxia Code(s): J96.01 - ACUTE RESPIRATORY FAILURE WITH HYPOXIA Assessment/Plan Current Medications Generic Name Dose Route Start Last Admin Trade Name Freq PRN Reason Stop Dose Admin Albuterol/Ipratropium 1 amp 10/29/19 14:56 Duoneb - NEB Q4H PRN SHORTNESS OF BREATH Aspirin 81 mg 10/29/19 15:45 10/29/19 15:38 Ecotrin - PO 81 mg DAILY SUSAN Administration Atorvastatin Calcium 20 mg 10/29/19 22:00 Lipitor - PO HS SUSAN Enoxaparin Sodium 40 mg 10/30/19 10:00 Lovenox - SQ DAILY SUS[facility] Furosemide 20 mg 10/30/19 10:00 Lasix - PO DAILY [facility] Metoprolol Succinate 25 mg 10/30/19 10:00 Toprol Xl - PO DAILY [facility] Nicotine 21 mg 10/30/19 10:00 Nicoderm Patch - TD DAILY [facility] Valsartan 160 mg 10/30/19 10:00 Diovan - PO DAILY [facility] Impression 1. chf 2. pna 3. htn - non compliant with meds 4. hypoxia 5. fever 6. mild hyperkalemia 7. ckd Plan - discussed with cardio, they will start entresto and d/c valsartan - cont lasix po, will help with potassium - will give a dose of lokelma - repeat labs in am - low sodium diet - discussed diet and compliance with pt and his - outpt renal follow up
[2019-10-29] MEDS ORDERED: SODIUM ZIRCONIUM CYCLOSILICATE (LOKELMA) 5 GM PACKET PO ONE (17:30)
[2019-10-29] MEDS: ATORVASTATIN CA 20 MG TABLET (FP) PO SCH (21:47)
[2019-10-29] MEDS: SACUBITRIL/VALSARTAN 49 MG-51 MG TABLET PO SCH (21:48)
[2019-10-30 07:23] LABS: BASO % 0.5 % (0-2.0); EOS % 2.4 % (0-4.5); HEMATOCRIT 47.2 % (35.4-49); HEMOGLOBIN 15.8 GM/dL (11.7-16.9); LYMPH % 47.7 % (8-40); MCH 31.5 pg (25.7-33.7); MCHC 33.4 g/dl (32.0-35.9); MEAN CELL VOLUME 94.5 fl (80-96); MEAN PLT VOLUME 9.5 fl (7.5-11.1); MONO % 9.8 % (3.8-10.2); NEUT % 39.6 % (42.8-82.8); PLATELET COUNT 216 K/MM3 (134-434); RDW 15.3 % (11.9-15.9); WHITE BLOOD COUNT 5.2 K/mm3 (4.0-10.0)
--- NOTE | 2019-10-30 07:35 | PN ---
Progress Note, Physician History of Present Illness: PULMONARY ALERT,COMFORTABLE,-SOB,-CP - Current Medication List Current Medications: Active Medications Albuterol/Ipratropium (Duoneb -) 1 amp NEB Q4H PRN PRN Reason: SHORTNESS OF BREATH Aspirin (Ecotrin -) 81 mg PO DAILY [facility] Last Admin: 10/29/19 15:38 Dose: 81 mg Documented by: Atorvastatin Calcium (Lipitor -) 20 mg PO HS [facility] Last Admin: 10/29/19 21:47 Dose: 20 mg Documented by: Enoxaparin Sodium (Lovenox -) 40 mg SQ DAILY [facility] Furosemide (Lasix -) 20 mg PO DAILY [facility] Metoprolol Succinate (Toprol Xl -) 25 mg PO DAILY [facility] Nicotine (Nicoderm Patch -) 21 mg TD DAILY [facility] Sacubitril/Valsartan (Entresto 49 Mg-51 Mg Tablet) 1 tab PO BID [facility] Last Admin: 10/29/19 21:48 Dose: Not Given Documented by: - Objective Vital Signs: Vital Signs Temperature 97.9 F 10/30/19 06:00 Pulse Rate 86 10/30/19 06:00 Respiratory Rate 18 10/30/19 06:00 Blood Pressure 101/73 10/30/19 06:00 O2 Sat by Pulse Oximetry (%) 97 10/30/19 06:00 Constitutional: Yes: Well Nourished, Calm Eyes: Yes: WNL HENT: Yes: WNL Neck: Yes: WNL Cardiovascular: Yes: Regular Rate and Rhythm, S1, S2 Respiratory: Yes: CTA Bilaterally Gastrointestinal: Yes: Normal Bowel Sounds, Soft Extremities: Yes: WNL Edema: No Labs: INR, PTT Assessment/Plan Problem List - Problems (1) Pulmonary vascular congestion Code(s): R09.89 - OTH SYMPTOMS AND SIGNS INVOLVING THE CIRC AND RESP SYSTEMS (2) Asthma Code(s): J45.909 - UNSPECIFIED ASTHMA, UNCOMPLICATED (3) Acute CHF (congestive heart failure) Code(s): I50.9 - HEART FAILURE, UNSPECIFIED Qualifiers: Heart failure type: unspecified Qualified Code(s): I50.9 - Heart failure, unspecified Assessment/Plan IMP: Do not suspect AE of Intermittent Asthma Do not suspect PNA R/O OSAS sleep screen AHI 28.7 CHF PLAN: No smoking was counseled Supplemental O2 as needed Outpatient PFTs Sleep study BD TX PRN Cardiac w/u full sleep study outpatient DR MORALES
[2019-10-30 07:40] LABS: ALBUMIN 2.9 g/dl (3.4-5.0); BILIRUBIN,TOTAL 0.4 mg/dL (0.2-1); BLOOD UREA NITROGEN 20.8 mg/dL (7-18); CALCIUM 8.5 mg/dL (8.5-10.1); CREATININE 1.1 mg/dL (0.55-1.3); POTASSIUM 4.1 mmol/L (3.5-5.1); TOT PROT 6.1 g/dl (6.4-8.2)
[2019-10-30] MEDS: NICOTINE 21 MG/24 HOURS TOPICAL PATCH TD SCH (09:56)
[2019-10-30] MEDS: ENOXAPARIN NA (PORCINE) 40 MG/0.4 ML DISP.SYRIN SQ SCH (09:56)
[2019-10-30] MEDS: ASPIRIN COATED 81 MG TABLET.EC PO SCH (09:57)
[2019-10-30] MEDS: metoPROLOL SUCCINATE 25 MG TAB.SR.24H (FP) PO SCH (09:57)
[2019-10-30] MEDS: SACUBITRIL/VALSARTAN 49 MG-51 MG TABLET PO SCH ×2 (09:57→21:03)
[2019-10-30] MEDS ORDERED: FUROSEMIDE 20 MG TABLET (FP) PO SCH (10:00)
[2019-10-30] MEDS ORDERED: VALSARTAN 160 MG TABLET (UD) PO SCH (10:00)
--- NOTE | 2019-10-30 10:46 | EKG ---
Test Reason : Blood Pressure : / mmHG Vent. Rate : 078 BPM Atrial Rate : 078 BPM P-R Int : 150 ms QRS Dur : 098 ms QT Int : 384 ms P-R-T Axes : 063 -19 078 degrees QTc Int : 437 ms NORMAL SINUS RHYTHM BIATRIAL ENLARGEMENT LEFT VENTRICULAR HYPERTROPHY T WAVE ABNORMALITY, CONSIDER LATERAL ISCHEMIA ABNORMAL ECG WHEN COMPARED WITH ECG OF 26-OCT-2019 06:57, VENT. RATE HAS DECREASED BY 38 BPM INVERTED T WAVES HAVE REPLACED NONSPECIFIC T WAVE ABNORMALITY IN LATERAL LEADS Confirmed by Paulina Ayala ([id number]) on 10/30/2019 10:45:55 AM Referred By: Graham PACE Confirmed By:Paulina Ayala
--- NOTE | 2019-10-30 12:05 | PN ---
Progress Note, Physician Chief Complaint: CHF History of Present Illness: Seen and examined at the bedside awake and alert offers no acute complaints no sob, cp, fever, chills, abd pain, N/V/D making urine tolerating meals - Current Medication List Current Medications: Active Medications Albuterol/Ipratropium (Duoneb -) 1 amp NEB Q4H PRN PRN Reason: SHORTNESS OF BREATH Aspirin (Ecotrin -) 81 mg PO DAILY [facility] Last Admin: 10/30/19 09:57 Dose: 81 mg Documented by: Atorvastatin Calcium (Lipitor -) 20 mg PO HS [facility] Last Admin: 10/29/19 21:47 Dose: 20 mg Documented by: Enoxaparin Sodium (Lovenox -) 40 mg SQ DAILY [facility] Last Admin: 10/30/19 09:56 Dose: 40 mg Documented by: Furosemide (Lasix -) 20 mg PO DAILY [facility] Last Admin: 10/30/19 09:57 Dose: 20 mg Documented by: Metoprolol Succinate (Toprol Xl -) 25 mg PO DAILY [facility] Last Admin: 10/30/19 09:57 Dose: 25 mg Documented by: Nicotine (Nicoderm Patch -) 21 mg TD DAILY [facility] Last Admin: 10/30/19 09:56 Dose: 21 mg Documented by: Sacubitril/Valsartan (Entresto 49 Mg-51 Mg Tablet) 1 tab PO BID [facility] Last Admin: 10/30/19 09:57 Dose: 1 tab Documented by: - Objective Vital Signs: Vital Signs Temperature 98.2 F 10/30/19 09:58 Pulse Rate 85 10/30/19 09:58 Respiratory Rate 18 10/30/19 09:58 Blood Pressure 118/78 10/30/19 09:58 O2 Sat by Pulse Oximetry (%) 99 10/30/19 09:58 Constitutional: Yes: No Distress HENT: Yes: Atraumatic Neck: Yes: Supple Cardiovascular: Yes: Regular Rate and Rhythm Respiratory: Yes: Regular. No: On BiPap Edema: No Labs: CBC, BMP 10/30/19 06:18 10/30/19 06:18 INR, PTT INR 0.96 (0.83-1.09) 10/26/19 08:00 Assessment/Plan Impression 1. chf 2. pna 3. htn - non compliant with meds 4. hypoxia 5. fever 6. mild hyperkalemia 7. ckd Plan Renal function stable Hyperkalemia now resolved, off Lokelma Continue entresto as per Cardiology Continue oral diuretics Trend K daily while inpatient Thank you Cecilio Singleton DO
--- NOTE | 2019-10-30 13:35 | PN ---
Progress Note, Physician Chief Complaint: Pt A&OX3; OOB in chair; no chest pain or dyspnea; had sleep test done. History of Present Illness: Mr. Chisholm is a 49-year-old black male with history of hypertension, nonc ompliant with medications, history of bronchial asthma since childhood,and smoking 1 ppd for years, acute/chronic alcoholism, presents with 1 month of progressive shortness of breath. Patient reports predominantly nighttime dyspnea that awakens him from sleep, no associated chest pain. He was seen at an urgent care about 1 month ago and prescribed albuterol for presumed asthma exacerbation, has been using it primarily at night with these events but without improvement. Last night, had a more significant episode so he presents for evaluation. Patient also reports 1 month of progressive dyspnea on exertion, notes previously being able to walk 2 flights of stairs in his home, but now has to stop at the top because of shortness of breath. Denies any chest pain, denies any wheezing, some cough with clear sputum, no leg swelling. No recent travel, no drug use, active smoker. Patient did report having a cardiac catheterization a few years ago, reportedly normal. - Current Medication List Current Medications: Active Medications Albuterol/Ipratropium (Duoneb -) 1 amp NEB Q4H PRN PRN Reason: SHORTNESS OF BREATH Aspirin (Ecotrin -) 81 mg PO DAILY [facility] Last Admin: 10/30/19 09:57 Dose: 81 mg Documented by: Atorvastatin Calcium (Lipitor -) 20 mg PO HS [facility] Last Admin: 10/29/19 21:47 Dose: 20 mg Documented by: Enoxaparin Sodium (Lovenox -) 40 mg SQ DAILY [facility] Last Admin: 10/30/19 09:56 Dose: 40 mg Documented by: Furosemide (Lasix -) 20 mg PO DAILY [facility] Last Admin: 10/30/19 09:57 Dose: 20 mg Documented by: Metoprolol Succinate (Toprol Xl -) 25 mg PO DAILY [facility] Last Admin: 10/30/19 09:57 Dose: 25 mg Documented by: Nicotine (Nicoderm Patch -) 21 mg TD DAILY [facility] Last Admin: 10/30/19 09:56 Dose: 21 mg Documented by: Sacubitril/Valsartan (Entresto 49 Mg-51 Mg Tablet) 1 tab PO BID [facility] Last Admin: 10/30/19 09:57 Dose: 1 tab Documented by: - Objective Vital Signs: Vital Signs Temperature 98.2 F 10/30/19 09:58 Pulse Rate 85 10/30/19 09:58 Respiratory Rate 18 10/30/19 09:58 Blood Pressure 118/78 10/30/19 09:58 O2 Sat by Pulse Oximetry (%) 99 10/30/19 09:58 Labs: CBC, BMP 10/30/19 06:18 10/30/19 06:18 INR, PTT INR 0.96 (0.83-1.09) 10/26/19 08:00 Assessment/Plan 1. Acute on chronic diastolic/systolic heart failure 2. Hypertensive cardiomyopathy with failure 3. Bronchial vs cardiac asthma 4. Medication and diet noncompliance 5. CKD with mild hyperkalemia 6. Tobacco use 10/27/19 Echo: Normal LV size with severe global HK LVEF< 30%, mod MR, mild TR ( read by Dr. Nelson) 10/27/19 ETT Myoview: Small size mild inferoseptal ischemia from apex to base c/w ischemia LVEF 20% 10/27/2019 Renal US: No hydrpnephrosis, normal kidneys. Plan: 1. Oral diuresis discontinued; f/u renal fxn and electrolytes, Lokelma per renal 2. Change Diovan to Entresto 49/51 bid, continue ASA 81 qd, Lipitor 20 qd, Topr ol XL 25 qd with uptitration as hemodynamics tolerate, eventual aldosterone inhibition once hyperkalemia resolved (now WNL; off Lokelma). 3. R&LH catheterization may be useful to confirm etiology of cardiomyopathy and document filling pressures once euvolemic, but may be performed as outpatient 4. Consideration for Lifevest prior to d/c, re-evaluate LV fxn in 90 days on optimal medical therapy to assess ICD candidacy, cardiac MRI to assess delayed hyperenhancement as outpatient. This was discussed with pt. 5. On nicotine patch.
--- NOTE | 2019-10-30 15:39 | PN ---
Physical Exam: SUBJECTIVE: Patient seen and examined OBJECTIVE: Vital Signs Period Temp Pulse Resp BP Sys/Wynn Pulse Ox Last 24 Hr 97.9 F-99 F 73-89 18-18 95-118/50-84 97-99 GENERAL: Awake, alert, and fully oriented, in no acute distress. HEENT: NC/AT, not P/C/J, neck supple no JVD LUNGS: Breath sounds equal, clear to auscultation bilaterally. No wheezes, and no crackles. No accessory muscle use. HEART: Regular rate and rhythm, normal S1 and S2 soft systolic LSB 1/6 murmur, rub or gallop. ABDOMEN: Soft, nontender, not distended, normoactive bowel sounds, no guarding, no rebound, no masses. No hepatomegaly or splenomegaly. LOWER EXTREMITIES: 2+ pulses, warm, well-perfused. No calf tenderness. No periph eral edema. rt varicose veins noted NEUROLOGICAL: Cranial nerves II-XII intact. Normal speech. Normal gait. SKIN: Warm, dry, normal turgor, no rashes or lesions noted, normal capillary refill. Laboratory Results - last 24 hr 10/30/19 10/30/19 06:18 06:18 WBC 5.2 RBC 5.00 Hgb 15.8 Hct 47.2 MCV 94.5 MCH 31.5 MCHC 33.4 RDW 15.3 Plt Count 216 MPV 9.5 Absolute Neuts (auto) 2.0 Neutrophils % 39.6 L Lymphocytes % 47.7 H Monocytes % 9.8 Eosinophils % 2.4 Basophils % 0.5 Nucleated RBC % 0 Sodium 138 Potassium 4.1 Chloride 106 Carbon Dioxide 26 Anion Gap 6 L BUN 20.8 H Creatinine 1.1 Est GFR (CKD-EPI)AfAm 92.16 Est GFR (CKD-EPI)NonAf 79.52 Random Glucose 97 Calcium 8.5 Total Bilirubin 0.4 AST 22 ALT 40 Alkaline Phosphatase 47 Total Protein 6.1 L Albumin 2.9 L Active Medications Generic Name Dose Route Start Last Admin Trade Name Freq PRN Reason Stop Dose Admin Albuterol/Ipratropium 1 amp 10/29/19 14:56 Duoneb - NEB Q4H PRN SHORTNESS OF BREATH Aspirin 81 mg 10/29/19 15:45 10/30/19 09:57 Ecotrin - PO 81 mg DAILY [facility]USAN Administration Atorvastatin Calcium 20 mg 10/29/19 22:00 10/29/19 21:47 Lipitor - PO 20 mg HS SUSAN Administration Enoxaparin Sodium 40 mg 10/30/19 10:00 10/30/19 09:56 Lovenox - SQ 40 mg DAILY SUSAN Administration Metoprolol Succinate 25 mg 10/30/19 10:00 10/30/19 09:57 Toprol Xl - PO 25 mg DAILY SUSAN Administration Nicotine 21 mg 10/30/19 10:00 10/30/19 09:56 Nicoderm Patch - TD 21 mg DAILY [facility]USAN Administration Sacubitril/Valsartan 1 tab 10/29/19 22:00 10/30/19 09:57 Entresto 49 Mg-51 Mg Tablet PO 1 tab BID SUSAN Administration ASSESSMENT/PLAN: 49 year old male with PMH of seasonal asthma, HTN, and varicose veins presented to ED complaining from dyspnea, paroxysmal nocturnal dysnpea # Acute HFrEF - non compliant with medications - family hx of HF/CAD at early age. - daily wt, I/O - on PO entresto, BB, ASA, statin, now off lasix - MIBI scan showing EF 20%with global hypokinesia - outpatient cath? will need lifevest prior to discharge - cardiology consult appreciated - pulmonary consult appreciated - Nephrology consult appreciated HTN Asthma varicose veins DVT prophylaxis Visit type - Emergency Visit Emergency Visit: Yes ED Registration Date: 10/26/19 Care time: The patient presented to the Emergency Department on the above date and was hospitalized for further evaluation of their emergent condition. - New Patient This patient is new to me today: No - Critical Care Critical Care patient: No - Discharge Referral Referred to [facility] Med P.C.: No
[2019-10-30] MEDS ORDERED: PT OWN MED DRAWER 7, Y5N ONE (20:46)
[2019-10-30] MEDS: ATORVASTATIN CA 20 MG TABLET (FP) PO SCH (21:04)
--- NOTE | 2019-10-31 06:45 | PN ---
Progress Note, Physician History of Present Illness: PULMONARY ALERT,COMFORTABLE,-SOB,-CP - Current Medication List Current Medications: Active Medications Albuterol/Ipratropium (Duoneb -) 1 amp NEB Q4H PRN PRN Reason: SHORTNESS OF BREATH Aspirin (Ecotrin -) 81 mg PO DAILY [facility] Last Admin: 10/30/19 09:57 Dose: 81 mg Documented by: Atorvastatin Calcium (Lipitor -) 20 mg PO HS [facility] Last Admin: 10/30/19 21:04 Dose: 20 mg Documented by: Enoxaparin Sodium (Lovenox -) 40 mg SQ DAILY [facility] Last Admin: 10/30/19 09:56 Dose: 40 mg Documented by: Metoprolol Succinate (Toprol Xl -) 25 mg PO DAILY [facility] Last Admin: 10/30/19 09:57 Dose: 25 mg Documented by: Nicotine (Nicoderm Patch -) 21 mg TD DAILY [facility] Last Admin: 10/30/19 09:56 Dose: 21 mg Documented by: Sacubitril/Valsartan (Entresto 49 Mg-51 Mg Tablet) 1 tab PO BID [facility] Last Admin: 10/30/19 21:03 Dose: 1 tab Documented by: - Objective Vital Signs: Vital Signs Temperature 97.8 F 10/31/19 06:00 Pulse Rate 75 10/31/19 06:00 Respiratory Rate 18 10/31/19 06:00 Blood Pressure 94/66 10/31/19 06:00 O2 Sat by Pulse Oximetry (%) 99 10/31/19 06:00 Constitutional: Yes: Well Nourished, Calm Eyes: Yes: WNL HENT: Yes: WNL Neck: Yes: WNL Cardiovascular: Yes: Regular Rate and Rhythm, S1, S2 Respiratory: Yes: CTA Bilaterally Gastrointestinal: Yes: Normal Bowel Sounds, Soft Extremities: Yes: WNL Edema: No Labs: CBC, BMP Assessment/Plan Problem List - Problems (1) Pulmonary vascular congestion Code(s): R09.89 - OTH SYMPTOMS AND SIGNS INVOLVING THE CIRC AND RESP SYSTEMS (2) Asthma Code(s): J45.909 - UNSPECIFIED ASTHMA, UNCOMPLICATED (3) Acute CHF (congestive heart failure) Code(s): I50.9 - HEART FAILURE, UNSPECIFIED Qualifiers: Heart failure type: unspecified Qualified Code(s): I50.9 - Heart failure, unspecified Assessment/Plan IMP: Do not suspect AE of Intermittent Asthma Do not suspect PNA R/O OSAS sleep screen AHI 28.7 CHF PLAN: Supplemental O2 as needed Outpatient PFTs Sleep study BD TX PRN Cardiac w/u in progress full sleep study outpatient DR MORALES
[2019-10-31 08:09] LABS: BLOOD UREA NITROGEN 17.8 mg/dL (7-18); CALCIUM 8.8 mg/dL (8.5-10.1); CREATININE 1.1 mg/dL (0.55-1.3); POTASSIUM 4.7 mmol/L (3.5-5.1)
[2019-10-31] MEDS ORDERED: PT OWN MED DRAWER 7, Y5N ONE ×2 (09:53→21:05)
[2019-10-31] MEDS: SACUBITRIL/VALSARTAN 49 MG-51 MG TABLET PO SCH ×2 (09:57→21:12)
[2019-10-31] MEDS: ASPIRIN COATED 81 MG TABLET.EC PO SCH (09:57)
[2019-10-31] MEDS: metoPROLOL SUCCINATE 25 MG TAB.SR.24H (FP) PO SCH (09:57)
[2019-10-31] MEDS: NICOTINE 21 MG/24 HOURS TOPICAL PATCH TD SCH (09:57)
[2019-10-31] MEDS: ENOXAPARIN NA (PORCINE) 40 MG/0.4 ML DISP.SYRIN SQ SCH (09:57)
--- NOTE | 2019-10-31 20:38 | PN ---
Physical Exam: SUBJECTIVE: Patient seen and examined at bedside, feels well, awaiting ICD-vest. OBJECTIVE: Vital Signs Period Temp Pulse Resp BP Sys/Wynn Pulse Ox Last 24 Hr 97.8 F-98.4 F 71-77 18-20 94-116/66-80 98-100 GENERAL: Awake, alert, and fully oriented, in no acute distress. HEENT: NC/AT, not P/C/J, neck supple no JVD LUNGS: Breath sounds equal, clear to auscultation bilaterally. No wheezes, and no crackles. No accessory muscle use. HEART: Regular rate and rhythm, normal S1 and S2 soft systolic LSB 1/6 murmur, rub or gallop. ABDOMEN: Soft, nontender, not distended, normoactive bowel sounds, no guarding, no rebound, no masses. No hepatomegaly or splenomegaly. LOWER EXTREMITIES: 2+ pulses, warm, well-perfused. No calf tenderness. No peripheral edema. NEUROLOGICAL: Cranial nerves II-XII intact. Normal speech. Normal gait. SKIN: Warm, dry, normal turgor, no rashes or lesions noted, normal capillary refill. Laboratory Results - last 24 hr 10/31/19 05:50 Sodium 142 Potassium 4.7 Chloride 108 H Carbon Dioxide 30 Anion Gap 5 L BUN 17.8 Creatinine 1.1 Est GFR (CKD-EPI)AfAm 92.16 Est GFR (CKD-EPI)NonAf 79.52 Random Glucose 98 Calcium 8.8 Active Medications Generic Name Dose Route Start Last Admin Trade Name Freq PRN Reason Stop Dose Admin Albuterol/Ipratropium 1 amp 10/29/19 14:56 Duoneb - NEB Q4H PRN SHORTNESS OF BREATH Aspirin 81 mg 10/29/19 15:45 10/31/19 09:57 Ecotrin - PO 81 mg DAILY SUSAN Administration Atorvastatin Calcium 20 mg 10/29/19 22:00 10/30/19 21:04 Lipitor - PO 20 mg HS SUSAN Administration Enoxaparin Sodium 40 mg 10/30/19 10:00 10/31/19 09:57 Lovenox - SQ 40 mg DAILY SUSAN Administration Metoprolol Succinate 25 mg 10/30/19 10:00 10/31/19 09:57 Toprol Xl - PO 25 mg DAILY SUSAN Administration Nicotine 21 mg 10/30/19 10:00 10/31/19 09:57 Nicoderm Patch - TD 21 mg DAILY SUSAN Administration Sacubitril/Valsartan 1 tab 10/29/19 22:00 10/31/19 09:57 Entresto 49 Mg-51 Mg Tablet PO 1 tab BID SUSAN Administration ASSESSMENT/PLAN: 49 M HFrEF with acute exacerbation HTN HLD Etoh abuse Nicotine dependence Dilated cardiomyopathy Plan: Cont. Entresto/BB/Statin/ASA with uptitration as tolerated Awaiting ICD vest in view of low EF Cardiology following DVT ppx: Lovenox Visit type - Emergency Visit Emergency Visit: Yes ED Registration Date: 10/26/19 Care time: The patient presented to the Emergency Department on the above date and was hospitalized for further evaluation of their emergent condition. - New Patient This patient is new to me today: Yes Date on this admission: 10/31/19 - Critical Care Critical Care patient: No - Discharge Referral Referred to [facility] Med P.C.: No
[2019-10-31] MEDS: ATORVASTATIN CA 20 MG TABLET (FP) PO SCH (21:13)
[2019-11-01 07:19] LABS: ALBUMIN 3.5 g/dl (3.4-5.0); BILIRUBIN,TOTAL 0.6 mg/dL (0.2-1); BLOOD UREA NITROGEN 15.7 mg/dL (7-18); CALCIUM 9.2 mg/dL (8.5-10.1); CREATININE 1.2 mg/dL (0.55-1.3); POTASSIUM 4.1 mmol/L (3.5-5.1); TOT PROT 7.2 g/dl (6.4-8.2)
--- NOTE | 2019-11-01 08:21 | PN ---
Progress Note, Physician History of Present Illness: Mr. Chisholm is a 49-year-old black male with history of hypertension, noncompliant with medications, history of bronchial asthma since childhood,and smoking 1 ppd for years, acute/chronic alcoholism, presents with 1 month of progressive shortness of breath. Patient reports predominantly nighttime dyspnea that awakens him from sleep, no associated chest pain. He was seen at an urgent care about 1 month ago and prescribed albuterol for presumed asthma exacerbation, has been using it primarily at night with these events but without improvement. Last night, had a more significant episode so he presents for evaluation. Patient also reports 1 month of progressive dyspnea on exertion, notes previously being able to walk 2 flights of stairs in his home, but now has to stop at the top because of shortness of breath. Denies any chest pain, denies any wheezing, some cough with clear sputum, no leg swelling. No recent travel, no drug use, active smoker. Patient did report having a cardiac catheterization a few years ago, reportedly normal. - Current Medication List Current Medications: Active Medications Albuterol/Ipratropium (Duoneb -) 1 amp NEB Q4H PRN PRN Reason: SHORTNESS OF BREATH Aspirin (Ecotrin -) 81 mg PO DAILY [facility] Last Admin: 10/31/19 09:57 Dose: 81 mg Documented by: Atorvastatin Calcium (Lipitor -) 20 mg PO HS [facility] Last Admin: 10/31/19 21:13 Dose: 20 mg Documented by: Enoxaparin Sodium (Lovenox -) 40 mg SQ DAILY [facility] Last Admin: 10/31/19 09:57 Dose: 40 mg Documented by: Metoprolol Succinate (Toprol Xl -) 25 mg PO DAILY [facility] Last Admin: 10/31/19 09:57 Dose: 25 mg Documented by: Nicotine (Nicoderm Patch -) 21 mg TD DAILY [facility] Last Admin: 10/31/19 09:57 Dose: 21 mg Documented by: Sacubitril/Valsartan (Entresto 49 Mg-51 Mg Tablet) 1 tab PO BID [facility] Last Admin: 10/31/19 21:12 Dose: 1 tab Documented by: - Objective Vital Signs: Vital Signs Temperature 97.9 F 11/01/19 06:00 Pulse Rate 71 11/01/19 06:00 Respiratory Rate 18 11/01/19 06:00 Blood Pressure 133/82 11/01/19 06:00 O2 Sat by Pulse Oximetry (%) 100 11/01/19 06:00 Eyes: Yes: WNL, Conjunctiva Clear, EOM Intact HENT: Yes: WNL, Atraumatic, Normocephalic Neck: Yes: WNL, Supple, Trachea Midline Cardiovascular: Yes: WNL, Regular Rate and Rhythm Respiratory: Yes: WNL, Regular, CTA Bilaterally Gastrointestinal: Yes: WNL, Normal Bowel Sounds Genitourinary: Yes: WNL Musculoskeletal: Yes: WNL Extremities: Yes: WNL Edema: No Integumentary: Yes: WNL Neurological: Yes: WNL, Alert, Oriented ...Motor Strength: WNL Psychiatric: Yes: WNL Labs: CBC, BMP 10/30/19 06:18 11/01/19 06:05 INR, PTT INR 0.96 (0.83-1.09) 10/26/19 08:00 Assessment/Plan 1. Acute on chronic diastolic/systolic heart failure 2. Hypertensive cardiomyopathy with failure 3. Bronchial vs cardiac asthma 4. Medication and diet noncompliance 5. CKD with mild hyperkalemia 6. Tobacco use 10/27/19 Echo: Normal LV size with severe global HK LVEF< 30%, mod MR, mild TR ( read by Dr. Nelson) 10/27/19 ETT Myoview: Small size mild inferoseptal ischemia from apex to base c/w ischemia LVEF 20% 10/27/2019 Renal US: No hydrpnephrosis, normal kidneys. Plan: 1. Oral diuresis discontinued; f/u renal fxn and electrolytes, Lokelma per renal 2. Change Diovan to Entresto 49/51 bid, continue ASA 81 qd, Lipitor 20 qd, T oprol XL 25 qd with uptitration as hemodynamics tolerate, eventual aldosterone inhibition once hyperkalemia resolved (now WNL; off Lokelma). 3. R&LH catheterization may be useful to confirm etiology of cardiomyopathy and document filling pressures once euvolemic, but may be performed as outpatient 4. Consideration for Lifevest prior to d/c, re-evaluate LV fxn in 90 days on optimal medical therapy to assess ICD candidacy, cardiac MRI to assess delayed hyperenhancement as outpatient. This was discussed with pt. 5. On nicotine patch.
[2019-11-01] MEDS ORDERED: PT OWN MED DRAWER 7, Y5N ONE ×2 (09:38→22:33)
[2019-11-01] MEDS: NICOTINE 21 MG/24 HOURS TOPICAL PATCH TD SCH (09:40)
[2019-11-01] MEDS: metoPROLOL SUCCINATE 25 MG TAB.SR.24H (FP) PO SCH (09:40)
[2019-11-01] MEDS: ASPIRIN COATED 81 MG TABLET.EC PO SCH (09:40)
[2019-11-01] MEDS: ENOXAPARIN NA (PORCINE) 40 MG/0.4 ML DISP.SYRIN SQ SCH (09:41)
[2019-11-01] MEDS: SACUBITRIL/VALSARTAN 49 MG-51 MG TABLET PO SCH ×3 (09:41→22:34)
--- NOTE | 2019-11-01 10:25 | PN ---
Progress Note, Physician History of Present Illness: Mr. Chisohlm is a 49-year-old black male with history of hypertensive heart disease, noncompliant with medications, history of bronchial asthma since childhood,and smoking 1 ppd for years, acute/chronic alcoholism, presented with 1 month of progressive shortness of breath in context of elevated BP. Patient reports orthopnea and paroxysmal nocturnal dyspnea that awakens him from sleep, no associated chest pain. He was seen at an urgent care about 1 month ago and prescribed albuterol for presumed asthma exacerbation, has been using it primarily at night with these events but without improvement. Patient also reports 1 month of progressive dyspnea on exertion, notes previously being able to walk 2 flights of stairs in his home, but now has to stop at the top because of shortness of breath. Denies any chest pain, denies any wheezing, some cough with clear sputum, no leg swelling. No recent travel, no drug use, active smoker. Patient did report having a cardiac catheterization a few years ago, reportedly normal. He underwent diuresis and afterload reduction with improvement in symptoms back to baseline. Reviewed echo LVEF<30%. Admits to medication and salt noncompliance, denies NSAID use, his brother has h/o NIDCM post ICD.. - Current Medication List Current Medications: Active Medications Albuterol/Ipratropium (Duoneb -) 1 amp NEB Q4H PRN PRN Reason: SHORTNESS OF BREATH Aspirin (Ecotrin -) 81 mg PO DAILY [facility] Last Admin: 11/01/19 09:40 Dose: 81 mg Documented by: Atorvastatin Calcium (Lipitor -) 20 mg PO HS [facility] Last Admin: 10/31/19 21:13 Dose: 20 mg Documented by: Enoxaparin Sodium (Lovenox -) 40 mg SQ DAILY [facility] Last Admin: 11/01/19 09:41 Dose: 40 mg Documented by: Metoprolol Succinate (Toprol Xl -) 25 mg PO DAILY [facility] Last Admin: 11/01/19 09:40 Dose: 25 mg Documented by: Nicotine (Nicoderm Patch -) 21 mg TD DAILY [facility] Last Admin: 11/01/19 09:40 Dose: 21 mg Documented by: Sacubitril/Valsartan (Entresto 49 Mg-51 Mg Tablet) 1 tab PO BID [facility] Last Admin: 11/01/19 09:41 Dose: 1 tab Documented by: - Objective Vital Signs: Vital Signs Temperature 97.8 F 11/01/19 08:33 Pulse Rate 79 11/01/19 08:33 Respiratory Rate 18 11/01/19 08:33 Blood Pressure 110/77 11/01/19 08:33 O2 Sat by Pulse Oximetry (%) 100 11/01/19 08:40 Constitutional: Yes: No Distress, Calm Neck: Yes: Supple Cardiovascular: Yes: Regular Rate and Rhythm Respiratory: Yes: Regular, CTA Bilaterally Gastrointestinal: Yes: Normal Bowel Sounds, Soft Edema: No Labs: CBC, BMP 10/30/19 06:18 11/01/19 06:05 INR, PTT INR 0.96 (0.83-1.09) 10/26/19 08:00 - ....Imaging EKG: Report Reviewed (NSR @ [facility], LVH with lateral TWI Tele: NSR) Problem List - Problems (1) Hypertensive cardiomyopathy Code(s): I11.9 - HYPERTENSIVE HEART DISEASE WITHOUT HEART FAILURE; I43 - CARDIOMYOPATHY IN DISEASES CLASSIFIED ELSEWHERE Qualifiers: Heart failure presence: with heart failure Qualified Code(s): I11.0 - Hypertensive heart disease with heart failure; I43 - Cardiomyopathy in diseases classified elsewhere (2) Hyperlipidemia Code(s): E78.5 - HYPERLIPIDEMIA, UNSPECIFIED Qualifiers: Hyperlipidemia type: pure hypercholesterolemia Qualified Code(s): E78.00 - Pure hypercholesterolemia, unspecified; E78.0 - Pure hypercholesterolemia (3) Acute CHF (congestive heart failure) Code(s): I50.9 - HEART FAILURE, UNSPECIFIED Qualifiers: Heart failure type: combined systolic and diastolic Qualified Code(s): I50.41 - Acute combined systolic (congestive) and diastolic (congestive) heart failure (4) Pulmonary vascular congestion Code(s): R09.89 - OTH SYMPTOMS AND SIGNS INVOLVING THE CIRC AND RESP SYSTEMS Assessment/Plan 10/27/19 Echo: Normal LV size with severe global HK LVEF< 30%, mod MR, mild TR (my read) 10/27/19 ETT Myoview: Small size mild inferoseptal ischemia from apex to base c/w ischemia LVEF 20% 10/27/2019 Renal US: No hydrpnephrosis, normal kidneys 1. Acute on chronic diastolic/systolic heart failure 2. Hypertensive cardiomyopathy vs familial dilated cardiomyopathy with failure resolving 3. Bronchial vs cardiac asthma 4. Medication and diet noncompliance 5. CKD with proteinuria and resolved mild hyperkalemia 6. Tobacco use P:1. Oral diuresis with eplerenone 25 qd as hyperkalemia resolved post Lokelma, monitor diuretic response, renal fxn and electrolytes 2. Continue Entresto 49/51 bid, ASA 81 qd, Lipitor 20 qd, Toprol XL 25 qd with uptitration as hemodynamics tolerate, eventual BiDil and Farxiga as hemodynamics tolerate 3. R&LHc may be useful to confirm etiology of cardiomyopathy and document filling pressures once euvolemic, but may be performed as outpatient 4. Consideration for Lifevest prior to d/c, re-evaluate LV fxn in 90 days on optimal medical therapy to assess ICD candidacy, cardiac MRI to assess delayed hyperenhancement as outpatient, cardiopulmonary ETT for risk stratification.
[2019-11-01] MEDS: EPLERENONE 25 MG TABLET PO SCH (11:39)
--- NOTE | 2019-11-01 12:54 | PN ---
Teaching Attending Note Name of Resident: Dae Chavarria ATTENDING PHYSICIAN STATEMENT I saw and evaluated the patient. I reviewed the resident's note and discussed the case with the resident. I agree with the resident's findings and plan as documented. SUBJECTIVE: Patient seen and examined at bedside, no complaints, awaiting life vest for safe DC and Cardiology follow up w/ Dr. Haro as OP. OBJECTIVE: Vital Signs - 24 hr 10/31/19 10/31/19 10/31/19 13:59 18:00 21:00 Temperature 98.3 F 98.0 F Pulse Rate 71 75 Respiratory 20 20 Rate Blood Pressure 114/78 115/75 O2 Sat by Pulse 99 99 100 Oximetry (%) 10/31/19 11/01/19 11/01/19 22:00 02:00 06:00 Temperature 98.5 F 98.0 F 97.9 F Pulse Rate 77 68 71 Respiratory 20 18 18 Rate Blood Pressure 149/71 105/75 133/82 O2 Sat by Pulse 100 100 Oximetry (%) 11/01/19 11/01/19 08:33 08:40 Temperature 97.8 F Pulse Rate 79 Respiratory 18 Rate Blood Pressure 110/77 O2 Sat by Pulse 100 100 Oximetry (%) GENERAL: Awake, alert, and fully oriented, in no acute distress. HEENT: NC/AT, not P/C/J, neck supple no JVD LUNGS: Breath sounds equal, clear to auscultation bilaterally. No wheezes, and no crackles. No accessory muscle use. HEART: Regular rate and rhythm, normal S1 and S2 soft systolic LSB 1/6 murmur, rub or gallop. ABDOMEN: Soft, nontender, not distended, normoactive bowel sounds, no guarding, no rebound, no masses. No hepatomegaly or splenomegaly. LOWER EXTREMITIES: 2+ pulses, warm, well-perfused. No calf tenderness. No peripheral edema. NEUROLOGICAL: Cranial nerves II-XII intact. Normal speech. Normal gait. SKIN: Warm, dry, normal turgor, no rashes or lesions noted, normal capillary refill. Microbiology 10/26/19 07:50 Blood - Peripheral Venous Blood Culture - Final NO GROWTH AFTER 5 DAYS INCUBATION 10/26/19 07:50 Blood - Peripheral Venous Blood Culture - Final NO GROWTH AFTER 5 DAYS INCUBATION 10/26/19 12:00 Urine - Urine Clean Catch Urine Culture - Final NO GROWTH OBTAINED 10/26/19 12:00 Urine For Antigen Detection Legionella Antigen - Final 10/26/19 12:00 Urine For Antigen Detection Streptococcus pneumoniae Antigen (M - Final Laboratory Results - last 24 hr 11/01/19 06:05 Sodium 140 Potassium 4.1 Chloride 104 Carbon Dioxide 25 Anion Gap 10 BUN 15.7 Creatinine 1.2 Est GFR (CKD-EPI)AfAm 82.96 Est GFR (CKD-EPI)NonAf 71.58 Random Glucose 99 Calcium 9.2 Total Bilirubin 0.6 AST 25 ALT 47 Alkaline Phosphatase 53 Total Protein 7.2 Albumin 3.5 Home Medications Medication Instructions Recorded Albuterol Sulfate Inhaler - 2 inh PO Q6H 10/26/19 [Ventolin Hfa Inhaler -] Olmesartan/Hydrochlorothiazide 1 each PO DAILY 10/26/19 [Olmesartan-Hctz 40-25 mg Tab] Current Medications Generic Name Dose Route Start Last Admin Trade Name Freq PRN Reason Stop Dose Admin Albuterol/Ipratropium 1 amp 10/29/19 14:56 Duoneb - NEB Q4H PRN SHORTNESS OF BREATH Aspirin 81 mg 10/29/19 15:45 11/01/19 09:40 Ecotrin - PO 81 mg DAILY SUSAN Administration Atorvastatin Calcium 20 mg 10/29/19 22:00 10/31/19 21:13 Lipitor - PO 20 mg HS SUSAN Administration Enoxaparin Sodium 40 mg 10/30/19 10:00 11/01/19 09:41 Lovenox - SQ 40 mg DAILY SUSAN Administration Eplerenone 25 mg 11/01/19 10:45 11/01/19 11:39 Eplerenone PO 25 mg DAILY SUSAN Administration Metoprolol Succinate 25 mg 10/30/19 10:00 11/01/19 09:40 Toprol Xl - PO 25 mg DAILY SUSAN Administration Nicotine 21 mg 10/30/19 10:00 11/01/19 09:40 Nicoderm Patch - TD 21 mg DAILY SUSAN Administration Sacubitril/Valsartan 1 tab 10/29/19 22:00 11/01/19 09:41 Entresto 49 Mg-51 Mg Tablet PO 1 tab BID SUSAN Administration ASSESSMENT/PLAN: 49 M HFrEF with acute exacerbation HTN HLD Etoh abuse Nicotine dependence Dilated cardiomyopathy Plan: Cont. Entresto/BB/Statin/ASA with uptitration as tolerated Awaiting ICD vest in view of low EF Cardiology following DVT ppx: Lovenox
--- NOTE | 2019-11-01 13:08 | PN ---
Progress Note, Physician History of Present Illness: Pt seen and examined at bedside. He is awake and alert. He denies shortness of breath. - Current Medication List Current Medications: Active Medications Albuterol/Ipratropium (Duoneb -) 1 amp NEB Q4H PRN PRN Reason: SHORTNESS OF BREATH Aspirin (Ecotrin -) 81 mg PO DAILY [facility] Last Admin: 11/01/19 09:40 Dose: 81 mg Documented by: Atorvastatin Calcium (Lipitor -) 20 mg PO HS [facility] Last Admin: 10/31/19 21:13 Dose: 20 mg Documented by: Enoxaparin Sodium (Lovenox -) 40 mg SQ DAILY [facility] Last Admin: 11/01/19 09:41 Dose: 40 mg Documented by: Eplerenone (Eplerenone) 25 mg PO DAILY [facility] Last Admin: 11/01/19 11:39 Dose: 25 mg Documented by: Metoprolol Succinate (Toprol Xl -) 25 mg PO DAILY [facility] Last Admin: 11/01/19 09:40 Dose: 25 mg Documented by: Nicotine (Nicoderm Patch -) 21 mg TD DAILY [facility] Last Admin: 11/01/19 09:40 Dose: 21 mg Documented by: Sacubitril/Valsartan (Entresto 49 Mg-51 Mg Tablet) 1 tab PO BID [facility] Last Admin: 11/01/19 09:41 Dose: 1 tab Documented by: - Objective Vital Signs: Vital Signs Temperature 97.8 F 11/01/19 08:33 Pulse Rate 79 11/01/19 08:33 Respiratory Rate 18 11/01/19 08:33 Blood Pressure 110/77 11/01/19 08:33 O2 Sat by Pulse Oximetry (%) 100 11/01/19 08:40 Constitutional: Yes: Calm Eyes: Yes: Conjunctiva Clear HENT: Yes: Atraumatic Neck: Yes: Supple Cardiovascular: Yes: S1, S2 Respiratory: Yes: CTA Bilaterally Gastrointestinal: Yes: Normal Bowel Sounds, Soft Genitourinary: Yes: WNL Musculoskeletal: Yes: WNL Edema: No Neurological: Yes: Oriented Psychiatric: Yes: Oriented Labs: CBC, BMP 10/30/19 06:18 11/01/19 06:05 INR, PTT INR 0.96 (0.83-1.09) 10/26/19 08:00 Problem List - Problems (1) Acute CHF (congestive heart failure) Code(s): I50.9 - HEART FAILURE, UNSPECIFIED Qualifiers: Heart failure type: combined systolic and diastolic Qualified Code(s): I50.41 - Acute combined systolic (congestive) and diastolic (congestive) heart failure (2) Acute respiratory failure with hypoxia Code(s): J96.01 - ACUTE RESPIRATORY FAILURE WITH HYPOXIA Assessment/Plan Current Medications Generic Name Dose Route Start Last Admin Trade Name Freq PRN Reason Stop Dose Admin Albuterol/Ipratropium 1 amp 10/29/19 14:56 Duoneb - NEB Q4H PRN SHORTNESS OF BREATH Aspirin 81 mg 10/29/19 15:45 11/01/19 09:40 Ecotrin - PO 81 mg DAILY SUSAN Administration Atorvastatin Calcium 20 mg 10/29/19 22:00 10/31/19 21:13 Lipitor - PO 20 mg HS SUSAN Administration Enoxaparin Sodium 40 mg 10/30/19 10:00 11/01/19 09:41 Lovenox - SQ 40 mg DAILY SUSAN Administration Eplerenone 25 mg 11/01/19 10:45 11/01/19 11:39 Eplerenone PO 25 mg DAILY SUSAN Administration Metoprolol Succinate 25 mg 10/30/19 10:00 11/01/19 09:40 Toprol Xl - PO 25 mg DAILY SUSAN Administration Nicotine 21 mg 10/30/19 10:00 11/01/19 09:40 Nicoderm Patch - TD 21 mg DAILY SUSAN Administration Sacubitril/Valsartan 1 tab 10/29/19 22:00 11/01/19 09:41 Entresto 49 Mg-51 Mg Tablet PO 1 tab BID SUSAN Administration Impression 1. chf 2. pna 3. htn - non compliant with meds 4. hypoxia 5. fever 6. mild hyperkalemia 7. ckd Plan - renal function stable - cont current meds - monitor potassium - discussed potassium intake - outpt renal follow up
--- NOTE | 2019-11-01 13:51 | PN ---
Progress Note (short form) - Note Progress Note: PULMONARY Denies shortness of breath, cough or chest pain. Vital Signs Period Temp Pulse Resp BP Sys/Wynn Pulse Ox Last 24 Hr 97.8 F-98.5 F 68-79 18-20 105-149/71-82 99-100 Gen: NAD at rest Heart: RRR Lung: decreased breath sounds at the bases Abd: soft, nontender Ext: no edema CBC, BMP 10/30/19 06:18 11/01/19 06:05 Active Medications Albuterol/Ipratropium (Duoneb -) 1 amp NEB Q4H PRN PRN Reason: SHORTNESS OF BREATH Aspirin (Ecotrin -) 81 mg PO DAILY [facility] Last Admin: 11/01/19 09:40 Dose: 81 mg Documented by: Atorvastatin Calcium (Lipitor -) 20 mg PO HS [facility] Last Admin: 10/31/19 21:13 Dose: 20 mg Documented by: Enoxaparin Sodium (Lovenox -) 40 mg SQ DAILY [facility] Last Admin: 11/01/19 09:41 Dose: 40 mg Documented by: Eplerenone (Eplerenone) 25 mg PO DAILY [facility] Last Admin: 11/01/19 11:39 Dose: 25 mg Documented by: Metoprolol Succinate (Toprol Xl -) 25 mg PO DAILY [facility] Last Admin: 11/01/19 09:40 Dose: 25 mg Documented by: Nicotine (Nicoderm Patch -) 21 mg TD DAILY [facility] Last Admin: 11/01/19 09:40 Dose: 21 mg Documented by: Sacubitril/Valsartan (Entresto 49 Mg-51 Mg Tablet) 1 tab PO BID [facility] Last Admin: 11/01/19 09:41 Dose: 1 tab Documented by: A/P Acute on Chronic Systolic/Diastolic Heart Failure HTN CKD Asthma Smoker - continue diuretics per cardiology - o2 to keep SpO2 >90% - inhaled bronchodilators - smoking cessation - DVT prophylaxis
--- NOTE | 2019-11-01 20:02 | PN ---
Physical Exam: SUBJECTIVE: Patient seen and examined. No acute complaints. Pt. still frustrated and agitated that he is still in the hospital, stating he is losing $300/ day while here ad that he still has bills to pay. OBJECTIVE: Vital Signs Period Temp Pulse Resp BP Sys/Wynn Pulse Ox Last 24 Hr 97.8 F-98.5 F 68-85 18-20 105-149/52-82 100-100 GENERAL: The patient is awake, alert, and fully oriented, NAD HEAD: Normal with no signs of trauma. EYES:PERRLA, EOMI, sclera anicteric, conjunctiva clear. ENT: moist mucous membranes. NECK: supple. LUNGS: Decreased breath sounds on bilateral bases. No crackles or wheezing HEART: Regular rate and rhythm, S1, S2 without murmur ABDOMEN: Soft, nontender, nondistended, normoactive bowel sounds, EXTREMITIES: 2+ pulses, warm, well-perfused, no edema. NEUROLOGICAL: Cranial nerves II through XII grossly intact. Normal speech PSYCH: Normal mood, normal affect. SKIN: Warm, dry, normal turgor Laboratory Results - last 24 hr 11/01/19 06:05 Sodium 140 Potassium 4.1 Chloride 104 Carbon Dioxide 25 Anion Gap 10 BUN 15.7 Creatinine 1.2 Est GFR (CKD-EPI)AfAm 82.96 Est GFR (CKD-EPI)NonAf 71.58 Random Glucose 99 Calcium 9.2 Total Bilirubin 0.6 AST 25 ALT 47 Alkaline Phosphatase 53 Total Protein 7.2 Albumin 3.5 Active Medications Generic Name Dose Route Start Last Admin Trade Name Freq PRN Reason Stop Dose Admin Albuterol/Ipratropium 1 amp 10/29/19 14:56 Duoneb - NEB Q4H PRN SHORTNESS OF BREATH Aspirin 81 mg 10/29/19 15:45 11/01/19 09:40 Ecotrin - PO 81 mg DAILY SUSAN Administration Atorvastatin Calcium 20 mg 10/29/19 22:00 10/31/19 21:13 Lipitor - PO 20 mg HS SUSAN Administration Enoxaparin Sodium 40 mg 10/30/19 10:00 11/01/19 09:41 Lovenox - SQ 40 mg DAILY SUSAN Administration Eplerenone 25 mg 11/01/19 10:45 11/01/19 11:39 Eplerenone PO 25 mg DAILY SUSAN Administration Metoprolol Succinate 25 mg 10/30/19 10:00 11/01/19 09:40 Toprol Xl - PO 25 mg DAILY SUSAN Administration Nicotine 21 mg 10/30/19 10:00 11/01/19 09:40 Nicoderm Patch - TD 21 mg DAILY SUSAN Administration Sacubitril/Valsartan 1 tab 10/29/19 22:00 11/01/19 09:41 Entresto 49 Mg-51 Mg Tablet PO 1 tab BID SUSAN Administration ASSESSMENT/PLAN: Patient is a 49 year old male with PMH of asthma and HTN, presented to the ER with acutely worsening SOB that began at 2AM while he was asleep, with a history of 1 month of worsening asthma symptoms uncontrolled by Albuterol IH. Found to have congestive changes on CXR with questionable R infiltrate as well as BNP of 2.2k. #Shortness of breath -likely 2/2 acute CHF, r/o SHANA -BNP elevated -Echo - LV normal, mild to mod global hypokinesis of LV, EF 40%. Mild MR, Trace TR; although reviewed by Dr. Nelson who stated EF was less than 30% on that echo. -MIBI Stress test - small size, mild intensity reversible defect of inferoseptal wall from apex to base c/w ischemia. No TID. Global hypokinesis. LVEF 20% -c/w telemetry -awaiting life vest -sleep study pending -continue NIPPV at bedtime, prn during the day -blood/urine legionalla,pneumonia, covid negative -continue PO lasix -abx, steroids discontinued -start Toprol XL 25mg daily, hold HCTZ -Continue Valsartan -Duonebs prn -daily weights, I&O -monitor electrolytes and replete prn -Cardiology consulted. REcs appreciated. -Nephrology consulted. REcs appreciated. -Pulmonology consulted. Recs appreciated. #HTN -Continue Olmesartan -will hold HCTZ -started on Toprol XL and Lasix #FEN -Not on any standing fluids -Electrolytes wnl, routine bmp monitoring -Sodium restricted diet #Prophylaxis - Lovenox 40mg sq daily #Dispo -full code -tele Visit type - Emergency Visit Emergency Visit: Yes ED Registration Date: 10/26/19 Care time: The patient presented to the Emergency Department on the above date and was hospitalized for further evaluation of their emergent condition. - New Patient This patient is new to me today: Yes Date on this admission: 11/01/19 - Critical Care Critical Care patient: No - Discharge Referral Referred to [facility] Med P.C.: No ATTENDING PHYSICIAN STATEMENT I saw and evaluated the patient. I reviewed the resident's note and discussed the case with the resident. I agree with the resident's findings and plan as documented. SUBJECTIVE: OBJECTIVE: ASSESSMENT AND PLAN:
[2019-11-01] MEDS: ATORVASTATIN CA 20 MG TABLET (FP) PO SCH ×2 (22:20→22:34)
[2019-11-02 06:44] LABS: BLOOD UREA NITROGEN 10.8 mg/dL (7-18); CALCIUM 8.9 mg/dL (8.5-10.1); CREATININE 1.1 mg/dL (0.55-1.3); MAGNESIUM 2.1 mg/dL (1.8-2.4); POTASSIUM 4.2 mmol/L (3.5-5.1)
--- NOTE | 2019-11-02 06:44 | PN ---
Progress Note (short form) - Note Progress Note: Chief Complaint: Events noted, notes reviewed, sitting in a chair, patient denies any dyspnea, patient denies chest discomfort, patient is upset that he was not discharged home yesterday with LifeVest initiation History of Present Illness: Seen and examined on telemetry. Events noted, notes reviewed, sitting in a chair, patient denies any dyspnea, patient denies chest discomfort, patient is upset that he was not discharged home yesterday with LifeVest initiation Medications: Current Medications Generic Name Dose Route Start Last Admin Trade Name Freq PRN Reason Stop Dose Admin Albuterol/Ipratropium 1 amp 10/29/19 14:56 Duoneb - NEB Q4H PRN SHORTNESS OF BREATH Aspirin 81 mg 10/29/19 15:45 11/01/19 09:40 Ecotrin - PO 81 mg DAILY SUSAN Administration Atorvastatin Calcium 20 mg 10/29/19 22:00 11/01/19 22:34 Lipitor - PO 20 mg HS SUSAN Administration Enoxaparin Sodium 40 mg 10/30/19 10:00 11/01/19 09:41 Lovenox - SQ 40 mg DAILY SUSAN Administration Eplerenone 25 mg 11/01/19 10:45 11/01/19 11:39 Eplerenone PO 25 mg DAILY SUSAN Administration Metoprolol Succinate 25 mg 10/30/19 10:00 11/01/19 09:40 Toprol Xl - PO 25 mg DAILY SUSAN Administration Nicotine 21 mg 10/30/19 10:00 11/01/19 09:40 Nicoderm Patch - TD 21 mg DAILY SUSAN Administration Sacubitril/Valsartan 1 tab 10/29/19 22:00 11/01/19 22:34 Entresto 49 Mg-51 Mg Tablet PO 1 tab BID SUSAN Administration Review of Systems Constitutional: denies Chills or Fever Respiratory: denies: Dyspnea Cardiovascular: As noted above Gastrointestinal: denies Nausea, Vomiting, Diarrhea or Constipation or Abdominal Discomfort Genitourinary: No Symptoms Reported Musculoskeletal: No Symptoms Reported Vital Signs: Last Vital Signs Temp Pulse Resp BP Pulse Ox 98.3 F 69 18 98/63 98 11/02/19 06:00 11/02/19 06:00 11/02/19 06:00 11/02/19 06:00 11/02/19 01:39 Intake & Output 10/30/19 10/31/19 11/01/19 11/02/19 23:59 23:59 23:59 23:59 Intake Total 311 982 4371 240 Balance 852 271 3625 240 Weight 177 lb 176 lb 176 lb 6 oz Neck: Supple Negative JVD Respiratory: Clear to auscultation percussion Cardiovascular: S1 S2 Regular Rate Rhythm Gastrointestinal: Soft Benign Normal Bowel Sounds Ext: Negative Edema Labs: CBC, BMP 10/30/19 06:18 11/02/19 06:03 Hepatic Panel Total Bilirubin 0.6 mg/dL (0.2-1) 11/01/19 06:05 AST 25 U/L (15-37) 11/01/19 06:05 ALT 47 U/L (13-61) 11/01/19 06:05 Alkaline Phosphatase 53 U/L (45-117) 11/01/19 06:05 Albumin 3.5 g/dl (3.4-5.0) 11/01/19 06:05 INR, PTT INR 0.96 (0.83-1.09) 10/26/19 08:00 Assessment/Plan ASSESSMENT: 1. Clinical presentation is consistent with acute on chronic class II-III [place] [employer] classification left ventricular failure related to systolic/diastolic left ventricular dysfunction, clinically resolved, 2. 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 Hypertensive cardiovascular disease 4. Reactive/bronchial asthma versus cardiac asthma related to the above noted congestive heart failure 5. History of medical therapy administration noncompliance, dietary indiscretion 6. Chronic kidney disease with proteinuria, clinically improved 7. Tobacco use PLAN: 1. Continue Inspra therapy with caution and close monitoring of renal function and electrolytes 2. Continue Entresto therapy with caution and close monitoring of renal function and electrolytes 3. Continue Toprol-XL therapy and dose titration as hemodynamics permit 4. Continue ASA therapy 5. Continue Lipitor therapy 6. Eventual initiation of BiDil and Farxiga therapies as outpatient's hemodynamics permitting 7. Eventual right and left heart cardiac catheterization coronary angiography for further evaluation of the above-noted cardiomyopathy/outpatient procedure 8. Eventual cardiac MRI for further evaluation of the above-noted cardiomyopathy/outpatient procedure 9. Eventual cardiopulmonary ETT for risk stratification/outpatient test 10. Plan to discharge the patient home with LifeVest utilization/sudden prevention- eventual LVEF reassessment in 90 days if LVEF is noted to be 35% or less ICD implantation would be recommended Guirnder Zamarripa MD
[2019-11-02] MEDS ORDERED: PT OWN MED DRAWER 7, Y5N ONE (08:50)
[2019-11-02] MEDS: EPLERENONE 25 MG TABLET PO SCH (09:04)
[2019-11-02] MEDS: SACUBITRIL/VALSARTAN 49 MG-51 MG TABLET PO SCH (09:04)
[2019-11-02] MEDS: ASPIRIN COATED 81 MG TABLET.EC PO SCH (09:04)
[2019-11-02] MEDS: ENOXAPARIN NA (PORCINE) 40 MG/0.4 ML DISP.SYRIN SQ SCH (09:04)
[2019-11-02] MEDS: NICOTINE 21 MG/24 HOURS TOPICAL PATCH TD SCH (09:04)
[2019-11-02] MEDS: metoPROLOL SUCCINATE 25 MG TAB.SR.24H (FP) PO SCH (09:04)
--- NOTE | 2019-11-02 10:13 | PN ---
Progress Note, Physician History of Present Illness: PULMONARY ALERT,COMFORTABLE,-SOB,-CP,REFUSED BIPAP LAST NIGHT - Current Medication List Current Medications: Active Medications Albuterol/Ipratropium (Duoneb -) 1 amp NEB Q4H PRN PRN Reason: SHORTNESS OF BREATH Aspirin (Ecotrin -) 81 mg PO DAILY [facility] Last Admin: 11/02/19 09:04 Dose: 81 mg Documented by: Atorvastatin Calcium (Lipitor -) 20 mg PO HS [facility] Last Admin: 11/01/19 22:34 Dose: 20 mg Documented by: Enoxaparin Sodium (Lovenox -) 40 mg SQ DAILY [facility] Last Admin: 11/02/19 09:04 Dose: 40 mg Documented by: Eplerenone (Eplerenone) 25 mg PO DAILY [facility] Last Admin: 11/02/19 09:04 Dose: 25 mg Documented by: Metoprolol Succinate (Toprol Xl -) 25 mg PO DAILY [facility] Last Admin: 11/02/19 09:04 Dose: 25 mg Documented by: Nicotine (Nicoderm Patch -) 21 mg TD DAILY [facility] Last Admin: 11/02/19 09:04 Dose: 21 mg Documented by: Sacubitril/Valsartan (Entresto 49 Mg-51 Mg Tablet) 1 tab PO BID [facility] Last Admin: 11/02/19 09:04 Dose: 1 tab Documented by: - Objective Vital Signs: Vital Signs Temperature 98.5 F 11/02/19 09:08 Pulse Rate 71 11/02/19 09:08 Respiratory Rate 18 11/02/19 09:08 Blood Pressure 120/77 11/02/19 09:08 O2 Sat by Pulse Oximetry (%) 99 11/02/19 09:08 Constitutional: Yes: Well Nourished, Calm Eyes: Yes: WNL HENT: Yes: WNL Neck: Yes: WNL Cardiovascular: Yes: Regular Rate and Rhythm, S1, S2 Respiratory: Yes: CTA Bilaterally Gastrointestinal: Yes: Normal Bowel Sounds, Soft Extremities: Yes: WNL Edema: No Labs: CBC, BMP Laboratory Tests 11/02/19 06:03 Sodium 141 Potassium 4.2 Chloride 109 H Carbon Dioxide 30 BUN 10.8 Creatinine 1.1 Assessment/Plan Problem List - Problems (1) Pulmonary vascular congestion Code(s): R09.89 - OTH SYMPTOMS AND SIGNS INVOLVING THE CIRC AND RESP SYSTEMS (2) Asthma Code(s): J45.909 - UNSPECIFIED ASTHMA, UNCOMPLICATED (3) Acute CHF (congestive heart failure) Code(s): I50.9 - HEART FAILURE, UNSPECIFIED Qualifiers: Heart failure type: unspecified Qualified Code(s): I50.9 - Heart failure, unspecified Assessment/Plan IMP: Do not suspect AE of Intermittent Asthma Do not suspect PNA R/O OSAS sleep screen AHI 28.7 CHF PLAN: Supplemental O2 as needed Outpatient PFTs BD [place] PRN full sleep study outpatient DR MORALES
--- NOTE | 2019-11-02 13:04 | PN ---
Progress Note, Physician History of Present Illness: Pt seen and examined at bedside. He is awake and alert. He denies shortness of breath. - Current Medication List Current Medications: Active Medications Albuterol/Ipratropium (Duoneb -) 1 amp NEB Q4H PRN PRN Reason: SHORTNESS OF BREATH Aspirin (Ecotrin -) 81 mg PO DAILY [facility] Last Admin: 11/02/19 09:04 Dose: 81 mg Documented by: Atorvastatin Calcium (Lipitor -) 20 mg PO HS [facility] Last Admin: 11/01/19 22:34 Dose: 20 mg Documented by: Enoxaparin Sodium (Lovenox -) 40 mg SQ DAILY [facility] Last Admin: 11/02/19 09:04 Dose: 40 mg Documented by: Eplerenone (Eplerenone) 25 mg PO DAILY [facility] Last Admin: 11/02/19 09:04 Dose: 25 mg Documented by: Metoprolol Succinate (Toprol Xl -) 25 mg PO DAILY [facility] Last Admin: 11/02/19 09:04 Dose: 25 mg Documented by: Nicotine (Nicoderm Patch -) 21 mg TD DAILY [facility] Last Admin: 11/02/19 09:04 Dose: 21 mg Documented by: Sacubitril/Valsartan (Entresto 49 Mg-51 Mg Tablet) 1 tab PO BID [facility] Last Admin: 11/02/19 09:04 Dose: 1 tab Documented by: - Objective Vital Signs: Vital Signs Temperature 98.5 F 11/02/19 09:08 Pulse Rate 71 11/02/19 09:08 Respiratory Rate 18 11/02/19 09:08 Blood Pressure 120/77 11/02/19 09:08 O2 Sat by Pulse Oximetry (%) 99 11/02/19 10:00 Constitutional: Yes: Calm Eyes: Yes: Conjunctiva Clear HENT: Yes: Atraumatic Neck: Yes: Supple Cardiovascular: Yes: S1, S2 Respiratory: Yes: CTA Bilaterally Gastrointestinal: Yes: Soft Genitourinary: Yes: WNL Musculoskeletal: Yes: WNL Extremities: Yes: WNL Edema: No Integumentary: Yes: WNL Neurological: Yes: Oriented Psychiatric: Yes: Oriented Labs: CBC, BMP 10/30/19 06:18 11/02/19 06:03 INR, PTT INR 0.96 (0.83-1.09) 10/26/19 08:00 Problem List - Problems (1) Acute CHF (congestive heart failure) Code(s): I50.9 - HEART FAILURE, UNSPECIFIED Qualifiers: Heart failure type: combined systolic and diastolic Qualified Code(s): I50.41 - Acute combined systolic (congestive) and diastolic (congestive) heart failure (2) Acute respiratory failure with hypoxia Code(s): J96.01 - ACUTE RESPIRATORY FAILURE WITH HYPOXIA Assessment/Plan Current Medications Generic Name Dose Route Start Last Admin Trade Name Freq PRN Reason Stop Dose Admin Albuterol/Ipratropium 1 amp 10/29/19 14:56 Duoneb - NEB Q4H PRN SHORTNESS OF BREATH Aspirin 81 mg 10/29/19 15:45 11/02/19 09:04 Ecotrin - PO 81 mg DAILY SUSAN Administration Atorvastatin Calcium 20 mg 10/29/19 22:00 11/01/19 22:34 Lipitor - PO 20 mg HS SUSAN Administration Enoxaparin Sodium 40 mg 10/30/19 10:00 11/02/19 09:04 Lovenox - SQ 40 mg DAILY SUSAN Administration Eplerenone 25 mg 11/01/19 10:45 11/02/19 09:04 Eplerenone PO 25 mg DAILY SUSAN Administration Metoprolol Succinate 25 mg 10/30/19 10:00 11/02/19 09:04 Toprol Xl - PO 25 mg DAILY SUSAN Administration Nicotine 21 mg 10/30/19 10:00 11/02/19 09:04 Nicoderm Patch - TD 21 mg DAILY SUSAN Administration Sacubitril/Valsartan 1 tab 10/29/19 22:00 11/02/19 09:04 Entresto 49 Mg-51 Mg Tablet PO 1 tab BID SUSAN Administration Impression 1. chf 2. pna 3. htn - non compliant with meds 4. hypoxia 5. fever 6. mild hyperkalemia 7. ckd Plan - potassium stable - renal function stable - outpt follow up - discussed diet - avoid nsaids
[2019-11-02 13:16] VITALS: BP 99/57; PULSE 68; TEMP 98.6
--- NOTE | 2019-11-02 16:16 | DS ---
Physical Exam: SUBJECTIVE: Patient seen and examined. No acute events overnight. OBJECTIVE: Vital Signs Period Temp Pulse Resp BP Sys/Wynn Pulse Ox Last 24 Hr 98.1 F-98.6 F 68-75 16-18 98-127/55-77 98-100 PHYSICAL EXAM GENERAL: The patient is awake, alert, and fully oriented, NAD HEAD: Normal with no signs of trauma. EYES:PERRLA, EOMI, sclera anicteric, conjunctiva clear. ENT: moist mucous membranes. NECK: supple. LUNGS: Decreased breath sounds on bilateral bases. No crackles or wheezing HEART: Regular rate and rhythm, S1, S2 without murmur ABDOMEN: Soft, nontender, nondistended, normoactive bowel sounds, EXTREMITIES: 2+ pulses, warm, well-perfused, no edema. NEUROLOGICAL: Cranial nerves II through XII grossly intact. Normal speech PSYCH: Normal mood, normal affect. SKIN: Warm, dry, normal turgor LABS Laboratory Results - last 24 hr 11/02/19 06:03 Sodium 141 Potassium 4.2 Chloride 109 H Carbon Dioxide 30 Anion Gap 3 L BUN 10.8 Creatinine 1.1 Est GFR (CKD-EPI)AfAm 92.16 Est GFR (CKD-EPI)NonAf 79.52 Random Glucose 99 Calcium 8.9 Magnesium 2.1 HOSPITAL COURSE: Date of Admission:10/26/19 Date of Discharge: 11/02/19 Patient is a 49 year old male with PMH of asthma and HTN, presented to the ER with acutely worsening SOB that began at 2AM while he was asleep, with a history of 1 month of worsening asthma symptoms uncontrolled by Albuterol IH. Found to have congestive changes on CXR with questionable R infiltrate as well as BNP of 2.2k. #Shortness of breath -likely 2/2 acute CHF, r/o SHANA -BNP elevated -Echo - LV normal, mild to mod global hypokinesis of LV, EF 40%. Mild MR, Trace TR; although reviewed by Dr. Nelson who stated EF was less than 30% on that echo. -MIBI Stress test - small size, mild intensity reversible defect of inferoseptal wall from apex to base c/w ischemia. No TID. Global hypokinesis. LVEF 20% -c/w telemetry -awaiting life vest -sleep study pending -continue NIPPV at bedtime, prn during the day -blood/urine legionalla,pneumonia, covid negative -continue PO lasix -abx, steroids discontinued -start Toprol XL 25mg daily, hold HCTZ -Continue Valsartan -Duonebs prn -daily weights, I&O -monitor electrolytes and replete prn -Cardiology consulted. REcs appreciated. -Nephrology consulted. REcs appreciated. -Pulmonology consulted. Recs appreciated. #HTN -Continue Olmesartan -will hold HCTZ -started on Toprol XL and Lasix #FEN -Not on any standing fluids -Electrolytes wnl, routine bmp monitoring -Sodium restricted diet #Prophylaxis - Lovenox 40mg sq daily #Dispo -full code -tele Minutes to complete discharge: 35 Discharge Summary Problems reviewed: Yes Reason For Visit: ACUTE CHF Current Active Problems Acute CHF (congestive heart failure) (Acute) Acute respiratory failure with hypoxia (Acute) Asthma (Acute) Hyperlipidemia (Acute) Hypertensive cardiomyopathy (Acute) Pneumonia (Acute) Pulmonary vascular congestion (Acute) Condition: Improved - Instructions Diet, Activity, Other Instructions: You came in for shortness of breath with activity. We imaged your heart with an ultrasound and a stress test. We found that your ejection fraction was 20%. You were seen by cardiology who recommend a life vest and then further heart evaluation in 90 days(Repeat US of heart or stress test) for an implantable defibrillator. we have started you new medications: Please take Aspirin 81 mg ONCE a day Please take Eplerenone 25mg ONCE a day Please take Metoprololo Succinate 25mg ONCE a day Please take Lipitor 20 mg ONCE a night Please take Entresto Every 12 hours. Please STOP taking your Olmesartan/Hydrochlorothiazide medication. Please follow up with your Director Hydro[employer], Dr. Haro, within 1 week. Please follow up with your PCP within 1 week. Please follow up with your Dairy Tester, Dr. Mccullough, for lung testing and sleep studies. Please follow up with your Chef Concierge, Dr. Rhodes within 1 week Referrals: Segundo Haro MD [Staff Physician] - 1 Week ON STAFF,NOT [Primary Care Provider] - Adal Mccullough MD [Staff Physician] - 1 Week Damon Rhodes MD [Staff Physician] - 1 Week Disposition: HOME - Home Medications Comprehensive Discharge Medication List: Ambulatory Orders Albuterol Sulfate Inhaler - [Ventolin HFA Inhaler -] 2 inh PO Q6H 10/26/19 Aspirin Coated [Ecotrin -] 81 mg PO DAILY #30 tablet.ec 11/02/19 Atorvastatin Ca [Lipitor] 20 mg PO HS #30 tablet 11/02/19 Eplerenone 25 mg PO DAILY #30 tablet 11/02/19 Metoprolol Succinate [Toprol XL -] 25 mg PO DAILY #30 tab.sr.24h 11/02/19 Sacubitril/Valsartan [Entresto 49 mg-51 mg Tablet] 1 tab PO BID #60 tablet 11/02/19 This patient is new to me today: No Emergency Visit: Yes ED Registration Date: 10/26/19 Care time: The patient presented to the Emergency Department on the above date and was hospitalized for further evaluation of their emergent condition. Critical Care patient: No - Discharge Referral Referred to [facility] Med P.C.: No ATTENDING PHYSICIAN STATEMENT I saw and evaluated the patient. I reviewed the resident's note and discussed the case with the resident. I agree with the resident's findings and plan as documented. SUBJECTIVE: OBJECTIVE: ASSESSMENT AND PLAN:
--- NOTE | 2019-11-08 20:49 | PN ---
Teaching Attending Note Name of Resident: Dae Chavarria ATTENDING PHYSICIAN STATEMENT I saw and evaluated the patient. I reviewed the resident's note and discussed the case with the resident. I agree with the resident's findings and plan as documented. SUBJECTIVE: Patient seen and examined at bedside, no complaints, fitted for live vest today, for OP Cardiology follow up. SC home. OBJECTIVE: Vital Signs - 24 hr 10/31/19 10/31/19 10/31/19 13:59 18:00 21:00 Temperature 98.3 F 98.0 F Pulse Rate 71 75 Respiratory 20 20 Rate Blood Pressure 114/78 115/75 O2 Sat by Pulse 99 99 100 Oximetry (%) 10/31/19 11/01/19 11/01/19 22:00 02:00 06:00 Temperature 98.5 F 98.0 F 97.9 F Pulse Rate 77 68 71 Respiratory 20 18 18 Rate Blood Pressure 149/71 105/75 133/82 O2 Sat by Pulse 100 100 Oximetry (%) 11/01/19 11/01/19 08:33 08:40 Temperature 97.8 F Pulse Rate 79 Respiratory 18 Rate Blood Pressure 110/77 O2 Sat by Pulse 100 100 Oximetry (%) GENERAL: Awake, alert, and fully oriented, in no acute distress. HEENT: NC/AT, not P/C/J, neck supple no JVD LUNGS: Breath sounds equal, clear to auscultation bilaterally. No wheezes, and no crackles. No accessory muscle use. HEART: Regular rate and rhythm, normal S1 and S2 soft systolic LSB 1/6 murmur, rub or gallop. ABDOMEN: Soft, nontender, not distended, normoactive bowel sounds, no guarding, no rebound, no masses. No hepatomegaly or splenomegaly. LOWER EXTREMITIES: 2+ pulses, warm, well-perfused. No calf tenderness. No peripheral edema. NEUROLOGICAL: Cranial nerves II-XII intact. Normal speech. Normal gait. SKIN: Warm, dry, normal turgor, no rashes or lesions noted, normal capillary refill. Microbiology 10/26/19 07:50 Blood - Peripheral Venous Blood Culture - Final NO GROWTH AFTER 5 DAYS INCUBATION 10/26/19 07:50 Blood - Peripheral Venous Blood Culture - Final NO GROWTH AFTER 5 DAYS INCUBATION 10/26/19 12:00 Urine - Urine Clean Catch Urine Culture - Final NO GROWTH OBTAINED 10/26/19 12:00 Urine For Antigen Detection Legionella Antigen - Final 10/26/19 12:00 Urine For Antigen Detection Streptococcus pneumoniae Antigen (M - Final Laboratory Results - last 24 hr 11/01/19 06:05 Sodium 140 Potassium 4.1 Chloride 104 Carbon Dioxide 25 Anion Gap 10 BUN 15.7 Creatinine 1.2 Est GFR (CKD-EPI)AfAm 82.96 Est GFR (CKD-EPI)NonAf 71.58 Random Glucose 99 Calcium 9.2 Total Bilirubin 0.6 AST 25 ALT 47 Alkaline Phosphatase 53 Total Protein 7.2 Albumin 3.5 Home Medications Medication Instructions Recorded Albuterol Sulfate Inhaler - 2 inh PO Q6H 10/26/19 [Ventolin Hfa Inhaler -] Olmesartan/Hydrochlorothiazide 1 each PO DAILY 10/26/19 [Olmesartan-Hctz 40-25 mg Tab] Current Medications Generic Name Dose Route Start Last Admin Trade Name Freq PRN Reason Stop Dose Admin Albuterol/Ipratropium 1 amp 10/29/19 14:56 Duoneb - NEB Q4H PRN SHORTNESS OF BREATH Aspirin 81 mg 10/29/19 15:45 11/01/19 09:40 Ecotrin - PO 81 mg DAILY [facility] Administration Atorvastatin Calcium 20 mg 10/29/19 22:00 10/31/19 21:13 Lipitor - PO 20 mg HS [facility]USAN Administration Enoxaparin Sodium 40 mg 10/30/19 10:00 11/01/19 09:41 Lovenox - SQ 40 mg DAILY [facility] Administration Eplerenone 25 mg 11/01/19 10:45 11/01/19 11:39 Eplerenone PO 25 mg DAILY [facility] Administration Metoprolol Succinate 25 mg 10/30/19 10:00 11/01/19 09:40 Toprol Xl - PO 25 mg DAILY [facility] Administration Nicotine 21 mg 10/30/19 10:00 11/01/19 09:40 Nicoderm Patch - TD 21 mg DAILY [facility] Administration Sacubitril/Valsartan 1 tab 10/29/19 22:00 11/01/19 09:41 Entresto 49 Mg-51 Mg Tablet PO 1 tab BID [facility] Administration ASSESSMENT/PLAN: 49 M HFrEF with acute exacerbation s/p life vest HTN HLD Etoh abuse Nicotine dependence Dilated cardiomyopathy Plan: Cont. Entresto/BB/Statin/ASA with uptitration as tolerated, will need follow up echo as OP for evaluation of EF and to see if implantable ICD is needed DC home with Cardio follow up as OP Strict avoidance of etoh/cigarettes/drugs counseled
== END 2019-11-02 17:39 | disposition home or self-care (01) | DRG 194 ==
LOC: SUPCPDRO 06:45 → JER 06:45 → JERBED 10:14 → J6S 18:29 → J4S 10-29 14:57
PROVIDERS: ADMIT Internal Medicine
DX: I13.0 Hypertensive heart and chronic kidney disease with heart failure and stage 1 through stage 4 chronic kidney disease, or unspecified chronic kidney disease (principal); J96.01 Acute respiratory failure with hypoxia; J18.9 Pneumonia, unspecified organism; R50.9 Fever, unspecified; I42.0 Dilated cardiomyopathy; I83.90 Asymptomatic varicose veins of unspecified lower extremity; F17.210 Nicotine dependence, cigarettes, uncomplicated; N18.9 Chronic kidney disease, unspecified; E87.5 Hyperkalemia; I50.43 Acute on chronic combined systolic (congestive) and diastolic (congestive) heart failure; Z91.19 Patient's noncompliance with other medical treatment and regimen
CPT/HCPCS: 36415; 71045-TC-FY; 76775-TC; 78452-TC; 80048; 80053; 80061; 81003; 82550; 82553; 82803; 83036; 83605; 83721; 83735; 83880; 84100; 84443; 84484; 85025; 85610; 85730; 87040; 87086; 87899; 93005; 93010; 93017; 93306-TC; 94660; 99291; A9502; J0131; U0003

== ENCOUNTER 2019-11-15 22:22 | Emergency (ER) | payer OTHER ==
[2019-11-15 22:28] VITALS: BP 151/108; PULSE 82; TEMP 97.7; BMI 27.6
--- NOTE | 2019-11-15 23:24 | PDOC ---
History of Present Illness - General Chief Complaint: Blood Pressure Problem Stated Complaint: Difficulty speaking Time Seen by Provider: 11/15/19 22:54 History Source: Patient Exam Limitations: No Limitations - History of Present Illness Initial Comments: 11/15/19 23:26 Cards: Dr. Estrellita Carrillo: Dr. Mccullough Nephro: Dr. Rhodes PCP: Not on staff HPI: 49 yo M pmh HTN, HLD, asthma, recently DX here with CHF (EF 20% discharged on life vest plan for defibrillator implantation) presenting s/p near syncopal episode at home with elevated blood pressure. Patient took his medications this evening, then went to make foot. He developed severe pressure behind his eyes that he identifies with elevated blood pressure, his vision blurred until he couldn't see and he recalls his mother asking him a question and him giving nonsensical answers until 1-2 minutes passed and he regained his ability to communicate with her. Denies nausea, vomiting, chest pain, chest tightness, palpitations, abdominal or back pain. Complaining now of continued pain behind the eyes (reduced) and in the back left of the head. All: NKDA Meds: Aspirin 81 mg ONCE a day Eplerenone 25mg ONCE a day Metoprololo Succinate 25mg ONCE a day Lipitor 20 mg ONCE a night Entresto Every 12 hours Past History - Travel History Traveled outside of the country in the last 30 days: No Close contact w/someone who was outside of country & ill: No - Medical History Allergies/Adverse Reactions: Allergies Allergy/AdvReac Type Severity Reaction Status Date / Time No Known Allergies Allergy Verified 11/15/19 22:28 Home Medications: Ambulatory Orders Albuterol Sulfate Inhaler - [Ventolin HFA Inhaler -] 2 inh PO Q6H 10/26/19 Aspirin Coated [Ecotrin -] 81 mg PO DAILY #30 tablet.ec 11/02/19 Atorvastatin Ca [Lipitor] 20 mg PO HS #30 tablet 11/02/19 Eplerenone 25 mg PO DAILY #30 tablet 11/02/19 Metoprolol Succinate [Toprol XL -] 25 mg PO DAILY #30 tab.sr.24h 11/02/19 Sacubitril/Valsartan [Entresto 49 mg-51 mg Tablet] 1 tab PO BID #60 tablet 0 11/02/19 Anemia: Yes Asthma: Yes Cardiac Disorders: Yes COPD: No HTN: Yes - Immunization History Immunization Up to Date: Yes - Psycho-Social/Smoking History Smoking History: Current every day smoker Have you smoked in the past 12 months: Yes Number of Cigarettes Smoked Daily: 10 Information on smoking cessation initiated: No 'Breaking Loose' booklet given: 10/26/19 - Substance Abuse Hx (Audit-C & DAST Scrn) How often the patient has a drink containing alcohol: Monthly or less Number of drinks the patient has on a typical day: 1 or 2 How often the patient has six or more drinks on one occasion: Less than monthly Score: In Men: 4 or > Positive; In Women: 3 or > Positive: 2 Screen Result (Pos requires Nsg. Audit-10AR): Negative In the last yr the pt used illegal drug/Rx for NonMed reason: No Score: Yes response is considered Positive: 0 Screen Result (Positive result requires Nsg. DAST-10): Negative Review of Systems - Review of Systems Able to Perform ROS?: Yes Is the patient limited [place]e proficient: Yes Constitutional: No: Chills, Diaphoresis, Fever HEENTM: Yes: Eye Pain, Blurred Vision. No: Ear Pain, Ocular Prothesis, Throat Pain Respiratory: No: Cough, Shortness of Breath, Wheezing Cardiac (ROS): No: Chest Pain, Edema, Irregular Heart Rate, Lightheadedness, Pal pitations, Syncope, Chest Tightness ABD/GI: No: Constipated, Diarrhea, Nausea, Vomiting : No: Burning, Dysuria, Frequency Musculoskeletal: No: Back Pain, Muscle Pain, Muscle Weakness, Neck Pain Integumentary: No: Pruritus, Rash Neurological: Yes: Headache. No: Numbness, Paresthesia, Pre-Existing Deficit, Seizure, Tingling, Weakness, Unsteady Gait, Ataxia, Dizziness Psychiatric: No: Stressors, Change in Appetite Endocrine: No: Increased Thirst, Increased Urine, Change in Weight Hematologic/Lymphatic: No: Anemia, Blood Clots, Easy Bleeding All Other Systems: Reviewed and Negative *Physical Exam - Vital Signs Last Vital Signs Temp Pulse Resp BP Pulse Ox 97.7 F 82 18 151/108 H 98 11/15/19 22:25 11/15/19 22:25 11/15/19 22:25 11/15/19 22:25 11/15/19 22:25 - Physical Exam 11/15/19 23:42 Vitals reviewed, AF, hypertensive, otherwise normal GEN: Well appearing, appears stated age, NAD, comfortable. AAOx3. HEENT: NCAT, EOMI, PERRL. Sclera anicteric, non-injected. No facial asymmetry. Moist mucous membranes. Normal voice. Trachea midline. CV: RRR, S1/S2, no murmurs / rubs / gallops appreciated. LUNG: CTABL, normal work of breathing. No wheezes, rales, rhonchi. No cough. Speaking full sentences. GI: Soft, NTND, +BS, no guarding, no rebound. No masses. EXTREMITIES: 2+ distal pulses. No clubbing / cyanosis / edema. No gross deformity in any extremity. SKIN: Warm, dry, no rashes appreciated, non-jaundiced. PSYCH: Normal mood and affect. Cooperative and appropriate. NEURO: Strength 5+ biceps, triceps, intrinsic hand muscles, hip flexors / extensors / foot dorsiflexion / plantarflexion Sensation normal throughout to light touch [id number] and heel-stallings normal (+No dysmetria) Rapid alternating movements normal (No dysdiadokinesis) Pronator drift normal Gait normal Cranial nerves: CN 1: Not assessed CN 2: Normal visual angelo and acuity CN 3/4/6: EOMI CN 5: Normal facial sensation CN 7: Normal facial movement CN 8: Symmetric hearing soft sounds CN 9: Uvula midline and normal articulation CN 10: Uvula midline and normal articulation CN 11: Normal shrug / head turn strength CN 12: Normal tongue movement A&Ox3, normal remote and recent recall. ED Treatment Course - RADIOLOGY Radiology Studies Ordered: Category Date Time Status HEAD CT WITHOUT CONTRAST [CT] Stat CT Scan 11/15/19 23:22 Ordered Medical Decision Making - Medical Decision Making 11/15/19 23:35 49 yo M pmh HTN, HLD, asthma, recently DX here with CHF (EF 20% discharged on life vest plan for defibrillator implantation) presenting s/p near syncopal episode at home with elevated blood pressure. History notable for significant cardiac history with CHF EF 20%, near syncopal episode with blurred out vision and speech change with elevated BP and continued pain, reassuring for absence of signs of ICH. Exam notable for well appearing, hypertensive to 151/108, resting comfortably in bed, NIHSS 0 with normal neuro exam. DDX: presyncope vs syncope concerning in setting of high risk cardiac patient, vs hypertensive emergency, vs ICH, vs much less likely TIA. - CBC, CMP, Coags, Cardiac Profile, UA - EKG, NCHCT Dispo: Admit Tele for high risk presyncopal episode. 11/16/19 00:00 Patient signed out against medical advice. Risks and benefits discussed including sudden , disability, recurrent episodes of disability. Explained reasoning for admission, patient continued to refuse and walked out before receiving discharge packet stating "I will just see Dr. Haro in the morning" Patient requested to leave AMA. Patient is determined to be of sound mind and reasoning. The patient fully understands the care they are refusing and the risks associated with leaving before complete medical evaluation as explained by the medical team. The patient has been provided with a discharge summary, return precautions, and the reassurance that the Emergency Department will resume workup if the patient changes their mind. Immediate primary care follow up has been urged. Discharge - Discharge Information Problems reviewed: Yes Clinical Impression/Diagnosis: Pre-syncope Hypertension Qualifiers: Hypertension type: unspecified Qualified Code(s): I10 - Essential (primary) hypertension Condition: Guarded Disposition: AGAINST MEDICAL ADVICE - Follow up/Referral Referrals: ON STAFF,NOT [Primary Care Provider] - - Patient Discharge Instructions - Post Discharge Activity
--- NOTE | 2019-11-16 10:16 | EKG ---
Test Reason : Blood Pressure : / mmHG Vent. Rate : 066 BPM Atrial Rate : 066 BPM P-R Int : 158 ms QRS Dur : 096 ms QT Int : 436 ms P-R-T Axes : 054 000 034 degrees QTc Int : 457 ms NORMAL SINUS RHYTHM POSSIBLE LEFT ATRIAL ENLARGEMENT BORDERLINE ECG WHEN COMPARED WITH ECG OF 30-OCT-2019 09:33, T WAVE INVERSION LESS EVIDENT IN LATERAL LEADS Confirmed by MD Juma, Michael ([id number]) on 11/16/2019 10:16:07 AM Referred By: Confirmed By:Michael Dennison MD
== END 2019-11-16 00:05 | disposition left against medical advice (07) ==
LOC: JER 22:22
DX: R55 Syncope and collapse (principal); I10 Essential (primary) hypertension
CPT/HCPCS: 93005; 93010; 99285-25